=== PATIENT | male | born 1960 | race Caucasian/White ===

== ENCOUNTER → 2016-11-04 | Outpatient (CLI) | payer OTHER ==
[~2016-11-04] MED LIST: ALBU1AER9 INH; ASPCH81X PO; ASPI81TA28 PO; CABE0.5T PO; CLIN1GEL5 TOP; HYDR12.56 PO; IBUP-1050 PO; PANT40TA PO; PRED20TA2 PO; VNTHFA/IN INH
[2016-11-04 12:08] LABS: DAYS OF ABSTINENCE 5; METHOD OF COLLECTION MASTURBATION; SEMEN TIME OF COLLECTION 855; TYPE OF SPECIMEN CONTAINER STERILE CUP
[2016-11-04 12:09] LABS: SEMEN COLOR YELLOW-GRAY (GRY/GRYWHTE)
[2016-11-04 12:10] LABS: SPERM VIABILITY STAIN NOT INDICATED % (>58%)
== END | disposition home or self-care (01) ==
LOC: C.LAB 09:14
PROVIDERS: ATTEND Obstetrics & Gynecology
DX: N46.9 Male infertility, unspecified (principal)

== ENCOUNTER 2016-12-13 15:50 | Emergency (ER) | payer OTHER ==
[~2016-12-13] VITALS: Ht 167.6 cm; Wt 80.3 kg
[~2016-12-13 15:50] MED LIST changes: -ASPI81TA28 PO; -CLIN1GEL5 TOP; -HYDR12.56 PO
[2016-12-13 16:02] VITALS: TEMP 36.7; Ht 167.6 cm; Wt 80.3 kg
[2016-12-13] MEDS ORDERED: PRED20TA2 PO (17:15)
[2016-12-13] MEDS ORDERED: CLIN1GEL5 TOP (17:20)
[2016-12-13] MEDS ORDERED: ASPI81TA28 PO (17:20)
[2016-12-13 17:44] VITALS: BP 128/84; PULSE 77; O2SAT 99
[2016-12-13] MEDS ORDERED: HYDR12.56 PO (17:46)
--- NOTE | 2016-12-16 14:31 | EMERGENCY ROOM VISIT NOTE ---
ED Visit Note First contact with patient: 17:02 Chief Complaint: Burning and itchy rash. History of Present Illness: Mr. Pleitez is a 56-year-old male who ambulates into the ED accompanied by family members complaining of a burning and itchy rash in the bilateral inguinal area. Patient reports he used [place] extra strength talcum powder in his inguinal area for the last week. 2 days ago he started noting burning and the development of a erythematous rash in the bilateral inguinal area. Since that time his burning has been constant. He has not identified any aggravating or alleviating factors related to the pain. He reports he has been using an over- the-counter cream on this area without relief of his discomfort. Additionally he notes that the rash is itchy. He denies any associated symptoms including fevers, chills, sweats, other skin eruptions, other skin color changes, abdominal pain, nausea, vomiting, increased urinary frequency, burning urination , hematuria. Review of Systems: As noted above in history of present illness. 8 body systems were reviewed and found to be negative as noted above. Past Medical History: Hypertension. Current Medications: Aleve, hydrochlorothiazide, aspirin, clindamycin phosphate gel, cabergoline. Allergies to Medications: Codeine, sumatriptan. Social History: Patient is currently employed; he lives with his and feels safe in his home environment; he denies tobacco and alcohol use. Physical Examination: Vital Signs: Date Time Temp Pulse Resp B/P (MAP) Pulse Ox O2 Delivery O2 Flow Rate FiO2 12/13/16 17:44 77 18 128/84 99 12/13/16 16:02 36.7 86 18 132/90 99 Room Air GENERAL: 56-year-old male in mild distress due to symptoms, nontoxic-appearing, afebrile and hemodynamically stable. NEUROLOGICAL: Awake, alert and oriented to person, place and time. Answering questions appropriately and following commands. SKIN: Warm, dry and pink. Genitals: Shows an mild erythematous rash without edema over the bilateral inguinal ligament area and over the lateral aspect of the scrotum. There is no drainage from the wound. There are no palpable masses or abscesses. There is no lymphangitis. THORAX: Lungs sounds are clear to auscultation and equal bilaterally with symmetrical chest wall. ABDOMEN: Flat, soft and nontender. Positive bowel sounds in all quadrants. No guarding, rigidity or organomegaly. GENITALS: Normal appearing, mature genitals. Rashes noted above. No other lesions or ulcerations were noted. No drainage from the meatus. No testicular tenderness. No local lymphadenopathy. ED Course: Patient is assessed as noted above. Patient's medications were reviewed. Patient was educated about today's findings and instructed on his treatment plan ; he verbalizes understanding and agreement with this plan. Clinical Impression: Rash had application site. Disposition: Patient discharged home in stable condition accompanied by family member; prior to departure he was reassessed and subjectively reported he was feeling the same. Plan: Patient was encouraged to discontinue use of the [place]. Patient was encouraged to keep the area clean with soap and water. Patient was encouraged to use Benadryl cream over the area. Patient was encouraged use cool compresses over the area for burning throat 5 times a day for 20-30 minutes. Patient was prescribed prednisone 40 mg once a day for the next 5 days. Patient was encouraged to follow-up with primary care provider for recheck if no better in 5-6 days. Patient was encouraged return to the ED for worsening rash, worsening burning, fevers, swelling or any new/concerning symptoms.
== END 2016-12-13 17:46 | disposition home or self-care (01) ==
LOC: C.EDB 15:51 → C.EDD 17:46
DX: R21 Rash and other nonspecific skin eruption (principal); I10 Essential (primary) hypertension; Z79.82 Long term (current) use of aspirin; Z79.899 Other long term (current) drug therapy

== ENCOUNTER → 2017-04-21 | Outpatient (CLI) | payer OTHER ==
[~2017-04-21] MED LIST changes: -ALBU1AER9 INH; -ASPCH81X PO; +ASPI81TA28 PO; +CLIN1GEL5 TOP; +HYDR12.56 PO; -PANT40TA PO; -PRED20TA2 PO; -VNTHFA/IN INH
--- NOTE | 2017-04-21 11:59 | DIAGNOSTIC IMAGING REPORT ---
R LOWER EXT JOINT WITHOUT CLINICAL HISTORY: 57 years-old Male with M72.2,M79.671. acute right ankle pain without known injury. History of plantar fasciitis COMPARISON: None. TECHNIQUE: Multiplanar, multi sequence MRI of the right ankle was performed without contrast. FINDINGS: The exam is mildly limited secondary to motion artifact LATERAL LIGAMENT COMPLEX: The anterior talofibular ligament, calcaneofibular ligament and posterior talofibular ligaments are intact. SYNDESMOTIC LIGAMENTS: The anterior-inferior tibiofibular ligament, interosseous membrane and posterior-inferior tibiofibular ligaments are intact. DELTOID LIGAMENT COMPLEX: The deep component of the deltoid ligament is intact. Linear increased T2 signal is noted within the intrasubstance superficial deltoid ligament as seen on images 18 and 19 of series 7 suggesting grade 2 sprain. ANTERIOR TENDONS: The tibialis anterior, extensor hallucis longus and extensor digitorum longus tendons are normal in position, morphology and signal. LATERAL TENDONS: The peroneus longus and brevis tendons are intact. MEDIAL TENDONS: The posterior tibialis, flexor digitorum longus and flexor hallucis longus tendons are intact. PLANTAR FASCIA: There is moderate thickening of the medial and lateral plantar fascial bundles. Moderate associated surrounding edema consistent with acute plantar fasciitis. No definite plantar fascial tear or plantar fascial nodules. Moderate associated plantar calcaneal enthesophyte. ACHILLES TENDON: The Achilles tendon is normal in position, morphology and signal. No associated bursitis. SINUS TARSI: There is normal fat signal within the sinus tarsi. The interosseous and cervical ligaments are normal. The navicular-calcaneal (spring) ligament iswithout acute abnormality. TARSAL TUNNEL: There are no obstructing lesions within the tarsal tunnel. BONE MARROW: Osteochondral defect of the medial talar dome measures 11 x 11 mm in AP and transverse dimension with moderate associated subcortical cystic changes. No unstable fragment or definite intra-articular loose body. There is a chondroid lesion of the mid talar body, 1.5 x 1.1 cm with rings and arcs morphology suggesting enchondroma. No fracture identified. Mild bone marrow edema of the calcaneus adjacent to the plantar fascia insertion site. Mild degenerative change of the midfoot with marginal spurring and chondral thinning. IMPRESSION: 1. Moderate acute on chronic plantar fasciitis with mild reactive bone marrow edema of the plantar insertion site about the calcaneus. Moderate sized plantar calcaneal enthesophyte. No evidence of plantar fascial tear. 2. 1.5 cm lesion of the mid talar body suggests an endochondroma. 3. 1.1 cm osteochondral defect of the medial talar dome. 4. Grade 2 sprain of the superficial medial collateral ligament is likely subacute. The above report was generated using voice recognition software. It may contain grammatical, syntax or spelling errors. Electronically signed by: Deangelo Henderson M.D. 04/21/2017 11:58 AM Dictated Date/Time: 04/21/2017 10:47 AM
== END | disposition home or self-care (01) ==
LOC: C.MRI 09:30
PROVIDERS: ATTEND Podiatrist Foot & Ankle Surgery
DX: M72.2 Plantar fascial fibromatosis (principal); M84.871 Other disorders of continuity of bone, right ankle and foot; S83.411A Sprain of medial collateral ligament of right knee, initial encounter; X58.XXXA Exposure to other specified factors, initial encounter

== ENCOUNTER → 2017-07-30 | Outpatient (CLI) | payer OTHER | END | disposition home or self-care (01) | LOC: C.LAB1850 11:15 | PROVIDERS: ATTEND Internal Medicine Endocrinology, Diabetes & Metabolism | DX: D35.2 Benign neoplasm of pituitary gland (principal) ==

== ENCOUNTER 2017-11-04 20:36 | Emergency (ER) | payer OTHER ==
[~2017-11-04] VITALS: Ht 167.6 cm; Wt 81.4 kg
[~2017-11-04 20:36] MED LIST changes: -CLIN1GEL5 TOP; -IBUP-1050 PO; +VITAMIN B PO; +VNTHFA/IN INH; +[UNRECOGNIZED DRUG - OTHER] PO
[2017-11-04 20:39] VITALS: TEMP 36.7; Ht 167.6 cm; Wt 81.4 kg
[2017-11-04] MEDS ORDERED: MoRPHine SULFATE 10 MG/ML CARP/VIAL IM STA (20:54)
--- NOTE | 2017-11-04 22:46 | DIAGNOSTIC IMAGING REPORT ---
CT OF THE RIGHT KNEE WITHOUT CONTRAST CLINICAL HISTORY: Right knee pain following fall. COMPARISON STUDY: No previous studies for comparison. FINDINGS: There is a moderate size right knee joint effusion without lipohemarthrosis. No acute fracture is present. Patellar tracking is normal. Joint spaces are preserved. No osseous lesion is identified. The ligaments of the right knee are suboptimally assessed by CT. IMPRESSION: 1. No acute fracture. 2. Moderate size right knee joint effusion without lipohemarthrosis. Electronically signed by: Chandra House M.D. 11/04/2017 10:45 PM Dictated Date/Time: 11/04/2017 10:39 PM
[2017-11-04 22:49] VITALS: BP 116/84; PULSE 76; O2SAT 93
--- NOTE | 2017-11-04 22:51 | EMERGENCY ROOM VISIT NOTE ---
History First contact with patient: 20:46 Chief Complaint: LEG PAIN,LEG INJURY Stated Complaint: RT LEG INJURED History of Present Illness The patient is a 57 year old male who presents to the Emergency Room with complaints of "right leg injury". The patient states that he injured his right knee 2 days ago while at work. He states that he went to [facility] and was sent to Dr. Rabia gimenez who saw him earlier today and would like to do an MRI but he notes because of the time was unable to do it then. The patient presents here today because the pain is worse. He rates the pain is an 11/10. He notes he was prescribed nothing for the pain. He has tried ibuprofen with little relief. He states that the injury occurred while he was mowing/operating a string nick and his knee twisted causing him to fall to the ground. He points to the right anterior knee joint as location of pain. Review of Systems A complete 10-point Review of Systems was discussed with the patient, with pertinent positives and negatives listed in the History of Present Illness. All remaining Review of Systems questions can be considered negative unless otherwise specified. 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 Surgical Problems: (1) Elbow Joint Replacement Status Family History Noncontributory Social History Smoking Status: Never Smoker Alcohol Use: none Marital Status: Current/Historical Medications Scheduled Aspirin (Aspirin Ec), 81 MG PO DAILY Cabergoline (Cabergoline), 0.5 MG PO [id number] Hydrochlorothiazide (Hctz), 12.5 MG PO QAM [Vitamin B2 W/Mag.], 1 TAB PO DAILY Scheduled PRN Albuterol Hfa (Ventolin Hfa), 2-4 PUFFS INH Q6H PRN for Shortness of Breath Oxycodone Ir (Roxicodone Ir), 1-2 TAB PO Q4H PRN for Pain Physical Exam Vital Signs Date Time Temp Pulse Resp B/P (MAP) Pulse Ox O2 Delivery O2 Flow Rate FiO2 11/04/17 22:49 76 18 116/84 93 Room Air 11/04/17 20:39 36.7 86 18 98 Room Air Physical Exam VITAL SIGNS - Vital signs and nursing notes were reviewed. Stable. GENERAL -57-year-old male appearing his stated age who is in no acute distress. Communicates well with provider and answers questions appropriately. SKIN - Without rashes. No meningeal or petechial rash. There is no erythema overlying the right knee. There is edema though of the soft tissue. EXTREMITIES - No clubbing or peripheral cyanosis. No pretibial edema present. Range of motion very limited of the right knee secondary to tenderness. No ligamentous laxity. Negative Lockman. He is neurovascularly intact in the right lower extremity. Especially tender over the right anterior knee joint Medical Decision & Procedures ER Provider Diagnostic Interpretation: CT OF THE RIGHT KNEE WITHOUT CONTRAST CLINICAL HISTORY: Right knee pain following fall. COMPARISON STUDY: No previous studies for comparison. FINDINGS: There is a moderate size right knee joint effusion without lipohemarthrosis. No acute fracture is present. Patellar tracking is normal. Joint spaces are preserved. No osseous lesion is identified. The ligaments of the right knee are suboptimally assessed by CT. IMPRESSION: 1. No acute fracture. 2. Moderate size right knee joint effusion without lipohemarthrosis. Electronically signed by: Chandra House M.D. 11/04/2017 10:45 PM Dictated Date/Time: 11/04/2017 10:39 PM Medications Administered Medications (Trade) Dose Ordered Sig/Esthela Route Start Time Stop Time Status Last Admin Dose Admin Morphine Sulfate (MoRPHine SULFATE INJ) 10 mg NOW STAT IM 11/04/17 20:54 11/04/17 20:55 DC 11/04/17 20:54 10 MG Oxycodone HCl (Roxicodone Immediate Rel 5MG Home Pack) 1 homepack UD STAT PO 11/04/17 23:07 11/04/17 23:08 DC 11/04/17 23:07 1 HOMEPACK Medical Decision Patient was seen and evaluated as above. Review was performed of nursing notes and vital signs. After obtaining a thorough history and physical examination the above work up was performed. He presents to us today with right knee pain. He had x-rays performed yesterday which he notes were negative. He saw an orthopedic surgeon today who will likely order an MRI. On my exam he is in tears, and is complaining of right knee pain. I did elect to obtain a CT scan to rule out tibial plateau fracture or occult fracture. Results as above. This is negative Other than joint effusion. I suspect ligamentous or meniscal injury. He is to follow with orthopedics. While here he was given an injection of morphine. He had minimal relief of his pain. He will be sent home with a short course of oxycodone and a prescription. No red flags in the [place] drug monitoring system. He was fitted with a new knee immobilizer here and notes it feels much better, and is better padded. The patient was educated upon management, had questions answered prior to discharge, and was discharged home in good condition. Case was discussed with the attending physician. I attest that I have personally reviewed the patient medication list. I attest that I have reviewed the patient's blood pressure and it was found to be normal. In the evaluation and treatment of this patient, the following differential diagnoses were considered: Patellar Fracture, Tibial Plateau Fracture, Distal Femur Fracture, ACL Injury, PCL Injury, Collateral Ligament Injury, Pes Anserine Bursitis, Maisonneuve Fracture. Impression Primary Impression: Knee pain, right Departure Information Dispostion Home / Self-Care Condition GOOD Prescriptions Oxycodone Ir (Roxicodone Ir) 5 Mg Tab 1-2 TAB PO Q4H Y for Pain, #18 TAB For Initial Treatment Prov: Jass Wesley PA-C 11/04/17 Referrals Ashwini Walsh M.D. (PCP) Feroz Brown M.D. Patient Instructions My [facility] Additional Instructions You have been treated in the Emergency Department for Knee Pain. You have received pain medicine in the emergency department which impairs your ability to operate a vehicle. It is illegal for you to drive after receiving these medicines. You have been prescribed OXY IR to be used for pain control. This is a narcotic medication. You cannot drive or consume alcohol while on this medicine. This medicine should only be used for pain that cannot be controlled with over-the- counter pain medicines. For pain control, you can use the following [id number] medicines (if >12 yo): - Regular strength (325mg/tab) Tylenol (acetaminophen) 2 tabs every 4-6 hours as needed. Do not exceed 12 tablets in a 24 hour period. Avoid taking more than 3 grams (3000 mg) of Tylenol per day. This includes any other sources of acetaminophen you may take on a regular basis. - Regular strength (200 mg/tab) Advil (ibuprofen) 1-2 tabs every 4-6 hours as needed. Do not exceed a dose of 3200 mg per day. Please do not take this with Aleve, naproxen, aspirin. You may use acto-nak-znemrva lidocaine cream as directed. If this is a recent injury (<24 hrs), ice can be applied to the area of pain for the first 3 days to help decrease pain and inflammation. Ice massages can be performed by freezing water in a paper cup, peeling back the cup to expose the ice and then massaging over the affected area. You have been provided the number for an Orthopaedic Surgeon. You should call this number as soon as possible to establish a follow-up visit from today's Emergency Department visit. Keep the knee brace in place until cleared by Orthopedics. Use the crutches you have been provided to keep ALL weight off of the knee until weight bearing is tolerable. Return to the Emergency Department if your current symptoms worsen despite treatment course outlined above.
[2017-11-04] MEDS ORDERED: VITAMIN B PO (22:56)
[2017-11-04] MEDS ORDERED: MAG PO (22:56)
[2017-11-04] MEDS ORDERED: OXYCODONE IR HOME PACK PO STA (23:07)
[2017-11-04] MEDS ORDERED: OXYC1TAB3 PO (23:08)
--- NOTE | 2017-11-04 23:18 | EMERGENCY ROOM VISIT NOTE ---
ED Visit Note First contact with patient: 20:46 I have personally evaluated this patient examined her and reviewed the pertinent labs and data. I have discussed the case with Jass Wesley, the physician housekeeping assistant and agree with the plan. Please refer to the PA note. This patient injured his knee yesterday he has significant right knee pain on exam is not red or warm or markedly swollen there is no instability is neurologically neurovascular intact. We did a CAT scan he does have a joint effusion but no fracture seen. He was seen by orthopedics today and is can use immobilizer and crutches and will give him pain medication .he may ultimately MRI of the symptoms persist as well and needs follow-up with his orthopedist
== END 2017-11-04 23:18 | disposition home or self-care (01) ==
LOC: C.EDB 20:36 → C.EDD 23:18
DX: M25.561 Pain in right knee (principal); I10 Essential (primary) hypertension; Z79.82 Long term (current) use of aspirin

== ENCOUNTER 2018-01-19 19:33 | Emergency (ER) | payer OTHER ==
[~2018-01-19] VITALS: Ht 167.6 cm; Wt 79.0 kg
[~2018-01-19 19:33] MED LIST changes: +OXYC-90 PO; -VITAMIN B PO; -[UNRECOGNIZED DRUG - OTHER] PO
[2018-01-19 19:34] VITALS: BP 157/104; PULSE 88; TEMP 36.3; O2SAT 99; Ht 167.6 cm; Wt 79.0 kg
[2018-01-19] MEDS ORDERED: POTA10CA28 PO (19:53)
[2018-01-19] MEDS ORDERED: RIBO100T9 PO (19:53)
--- NOTE | 2018-01-19 20:48 | DIAGNOSTIC IMAGING REPORT ---
LEFT ELBOW 4 VIEWS CLINICAL HISTORY: Left elbow pain. FINDINGS: 4 views of the left elbow are compared to study dated 01/07/2007. The skeletal structures are osteopenic. No acute fracture is identified. A left elbow arthroplasty is in place with long humeral and ulnar stems. Cerclage wires are present around the ulnar component. The radial head is surgically absent. Resorptive change is again seen involving the distal humerus and proximal ulna. Chronic posttraumatic deformity is noted in the left proximal humerus. Bony overgrowth is present around the elbow. There is no evidence of large joint effusion. The overlying soft tissues are normal as imaged. IMPRESSION: 1. No acute bony abnormality is identified in the left elbow. 2. Osteopenia with postoperative change, elbow joint arthroplasty, and chronic deformity as above. These findings are similar to the 2006 examination. Dictated: 01/19/2018 8:32 PM Transcribed: 01/19/2018 8:47 PM ROSARIO_Luis Antonio Electronically signed by: Migel Layton M.D. 01/19/2018 9:00 PM Dictated Date/Time: 01/19/2018 8:32 PM
[2018-01-19] MEDS ORDERED: OXYCODONE IR HOME PACK PO ONE (21:15)
--- NOTE | 2018-01-19 21:47 | EMERGENCY ROOM VISIT NOTE ---
History First contact with patient: 19:40 Chief Complaint: PAIN (GENERALIZED) Stated Complaint: PAIN History of Present Illness The patient is a 58 year old male who presents to the Emergency Room with complaints of pain in his left elbow. The patient states he has had a previous elbow replacement and has had 2 surgeries, in 2001 and 1978. His orthopedic surgeon is in [facility]. He states that no orthopedist will see him locally. In the past few weeks. He rates his current discomfort a 6/10. His pain worsens with any movement of the elbow. He denies any fevers, redness, warmth, numbness or weakness. Review of Systems A complete 6 point review of systems was reviewed with the patient with pertinent positives and negatives as per history of present illness. All else were negative. 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 Surgical Problems: (1) Elbow Joint Replacement Status Social History Smoking Status: Never Smoker Alcohol Use: none Marital Status: Current/Historical Medications Scheduled Aspirin (Aspirin Ec), 81 MG PO DAILY Cabergoline (Cabergoline), 0.5 MG PO [id number] Hydrochlorothiazide (Hctz), 12.5 MG PO QAM Potassium Chloride (Micro-K Ext Rel), 1 TAB PO DAILY Riboflavin (Vitamin B-2), 400 MG PO DAILY [Vitamin B2 W/Mag.], 1 TAB PO DAILY Scheduled PRN Albuterol Hfa (Ventolin Hfa), 2-4 PUFFS INH Q6H PRN for Shortness of Breath Oxycodone Ir (Roxicodone Ir), 1-2 TAB PO Q4H PRN for Pain Physical Exam Vital Signs Date Time Temp Pulse Resp B/P (MAP) Pulse Ox O2 Delivery O2 Flow Rate FiO2 01/19/18 19:34 36.3 88 20 157/104 99 Room Air Physical Exam VITALS: Vitals are noted on the nurse's note and reviewed by myself. Vital signs stable. GENERAL: This is a 58-year-old male, in no acute distress, well-developed well- nourished. SKIN: No redness or warmth. MUSCULOSKELETAL: There is extensive scarring over the left elbow. Diffuse tenderness to palpation. Full range of motion. Radial pulse 2+. Capillary refill within 2 seconds. NEURO: Patient was alert and oriented to person place and time. Distal sensation intact. Medical Decision & Procedures ER Provider Diagnostic Interpretation: LEFT ELBOW 4 VIEWS CLINICAL HISTORY: Left elbow pain. FINDINGS: 4 views of the left elbow are compared to study dated 01/07/2007. The skeletal structures are osteopenic. No acute fracture is identified. A left elbow arthroplasty is in place with long humeral and ulnar stems. Cerclage wires are present around the ulnar component. The radial head is surgically absent. Resorptive change is again seen involving the distal humerus and proximal ulna. Chronic posttraumatic deformity is noted in the left proximal humerus. Bony overgrowth is present around the elbow. There is no evidence of large joint effusion. The overlying soft tissues are normal as imaged. IMPRESSION: 1. No acute bony abnormality is identified in the left elbow. 2. Osteopenia with postoperative change, elbow joint arthroplasty, and chronic deformity as above. These findings are similar to the 2006 examination. Medical Decision Differential diagnosis includes osteoarthritis, rheumatoid disorder, septic arthritis, among others. The patient was evaluated as above. There is no evidence for infection on exam. X-ray was performed and read by radiology as above. Patient was given a short course of pain medication and was urged to follow-up with his orthopedist as soon as possible. He verbalized understanding of my assessment and treatment plan and was discharged home in good condition. [place] Drug Monitoring Program Search Results: patient reviewed within database, no issues identified Medication Reconcilliation Current Medication List: was personally reviewed by mt Blood Pressure Screening Patient's blood pressure: Elevated blood pressure Blood pressure disposition: Elevated BP felt to be situational Impression Primary Impression: Elbow pain, left Departure Information Dispostion Home / Self-Care Condition GOOD Prescriptions Oxycodone Ir (Roxicodone Ir) 5 Mg Tab 1-2 TAB PO Q4H Y for Pain, #18 TAB For Initial Treatment Prov: Samantha Price .MINO 01/19/18 Referrals Ashwini Walsh M.D. (PCP) Patient Instructions My [facility] Additional Instructions You have been treated in the Emergency Department for Elbow Pain. You have received pain medicine in the emergency department which impairs your ability to operate a vehicle. It is illegal for you to drive after receiving these medicines. You have been prescribed Oxy IR to be used for pain control. This is a narcotic medication. You cannot drive or consume alcohol while on this medicine. This medicine should only be used for pain that cannot be controlled with over-the- counter pain medicines. For pain control, you can use the following [id number] medicines (if >12 yo): - Regular strength (325mg/tab) Tylenol (acetaminophen) 2 tabs every 4-6 hours as needed. Do not exceed 12 tablets in a 24 hour period. Avoid taking more than 4 grams (4000 mg) of Tylenol per day. This includes any other sources of acetaminophen you may take on a regular basis. - Regular strength (200 mg/tab) Advil (ibuprofen) 1-2 tabs every 4-6 hours as needed. Do not exceed a dose of 3200 mg per day. You may want to take a daily anti-inflammatory such as naproxen sodium. If this is a recent injury (<24 hrs), ice can be applied to the area of pain for the first 3 days to help decrease pain and inflammation. Follow-up with your surgeon as scheduled or sooner if possible. Return to the Emergency Department if your current symptoms worsen despite treatment course outlined above, or if you develop any of the following symptoms : intractable pain despite aforementioned treatment course or new onset of numbness or tingling of the arm.
[2018-01-19] MEDS ORDERED: OXYC-90 PO (21:49)
[2018-01-19] MEDS ORDERED: MAG PO (22:56)
[2018-01-19] MEDS ORDERED: VITAMIN B PO (22:56)
== END 2018-01-19 21:50 | disposition home or self-care (01) ==
LOC: C.EDB 19:34 → C.EDD 21:50
DX: M25.522 Pain in left elbow (principal); K21.9 Gastro-esophageal reflux disease without esophagitis; I10 Essential (primary) hypertension; Z96.698 Presence of other orthopedic joint implants; Z79.82 Long term (current) use of aspirin; Z79.899 Other long term (current) drug therapy

== ENCOUNTER 2021-05-20 08:01 | Inpatient (IN) ==
[2021-05-20] MEDS ORDERED: SODIUM CHLORIDE 0.9% 500 ML IV STA (08:26)
[2021-05-20] MEDS ORDERED: ACETAMINOPHEN 1,000 MG/100 ML VIAL IV STA (08:26)
[2021-05-20] MEDS ORDERED: ONDANSETRON INJ 2 MG/ML 2 ML VIAL IV STA (08:26)
[2021-05-20 08:39] LABS: Basophils # (auto) 0.03 K/uL (0-0.2); Basophils % (auto) 0.4 %; Eosinophils # (auto) 0.02 K/uL (0-0.5); Eosinophils % (auto) 0.3 %; Hematocrit (blood only) 44.4 % (42-52); Immature Granulocytes # (auto) 0.03 K/uL (0.00-0.02); Immature Granulocytes % (auto) 0.4 %; Lymphocytes # (auto) 0.75 K/uL (1.2-3.4); Lymphocytes % (auto) 10.6 %; Mean Corpuscular Hemoglobin 28.7 pg (25-34); Mean Corpuscular Hgb Conc 33.8 g/dL (32-36); Mean Corpuscular Volume 85.1 fL (80-100); Mean Platelet Volume 10.6 fL (7.4-10.4); Monocytes # (auto) 0.49 K/uL (0.11-0.59); Monocytes % (auto) 6.9 %; Neutrophils # (auto) 5.77 K/uL (1.4-6.5); Neutrophils % (auto) 81.4 %; Platelet Count 326 K/uL (130-400); RDW Coefficient of Variation 13.3 % (11.5-14.5); RDW Standard Deviation 41.4 fL (36.4-46.3); Red Blood Count 5.22 M/uL (4.7-6.1); White Blood Count 7.09 K/uL (4.8-10.8)
--- NOTE | 2021-05-20 08:45 | XRay Report ---
XR chest 1V portable CLINICAL HISTORY: Dyspnea, COVID, hypoxia COMPARISON STUDY: Chest radiograph May 16, 2021. FINDINGS: Lung volumes are normal. There is no pneumothorax or pleural effusion. There has been progr ession of extensive bilateral airspace opacities since prior chest radiograph. Cardiomegaly is again noted. There is no evidence for pulmonary edema. IMPRESSION: Progression of extensive bilateral airspace opacities consistent with viral pneumonia. R adiographic follow-up to ensure resolution is recommended. ACT 112: Negative or not required by law. Electronically signed by: Chandra House M.D. 05/20/2021 8:44 AM
[2021-05-20 08:58] LABS: Partial Thromboplastin Ratio 0.9; Partial Thromboplastin Time 24.5 Seconds (21.0-31.0); Prothrombin Time 9.8 Seconds (9.0-12.0)
[2021-05-20 09:13] LABS: D Dimer 10200 ug/L FEU (0-500)
[2021-05-20 09:24] LABS: Alanine Aminotransferase 75 (12-78); Albumin Globulin Ratio 0.4 (0.9-2); Albumin Level 2.4 gm/dl (3.4-5.0); Alkaline Phosphatase 76 U/L (45-117); Aspartate Aminotransferase 80 U/L (15-37); BUN Creatinine Ratio 12.9 (10-20); Bilirubin,Total 0.5 mg/dl (0.2-1); Blood Urea Nitrogen 12 mg/dl (7-18); Calcium 8.5 mg/dl (8.5-10.1); Carbon Dioxide 26 mmol/L (21-32); Chloride 102 mmol/L (98-107); Est GFR (African American) 97.1 ml/min; Est GFR (Non-African American) 83.8 ml/min; Globulin 5.4 gm/dl (2.5-4.0); Glucose 103 mg/dl (70-99); Magnesium 2.1 mg/dl (1.8-2.4); Potassium 3.7 mmol/L (3.5-5.1); Sodium 137 mmol/L (136-145); Total Protein 7.8 gm/dl (6.4-8.2); Troponin I < 0.015 ng/ml (0-0.045)
[2021-05-20] MEDS ORDERED: dexAMETHasone**PF** 10 MG/ML VIAL IV ONE (09:27)
[2021-05-20] MEDS ORDERED: METOCLOPRAMIDE HCL INJ 5 MG/ML 2 ML VIAL IV STA (09:36)
[2021-05-20] MEDS ORDERED: diphenhydrAMINE 50 MG/ML VIAL IV STA (09:38)
--- NOTE | 2021-05-20 09:48 | Emergency Department Note ---
Impression & Plan Pneumonia due to COVID-19 virus, Hypoxia, Nausea & vomiting ED Provider Note Provider: Aaron Montana MD DATE OF SERVICE: 05/17/2021 CHIEF COMPLAINT: Shortness of breath, nausea HISTORY OF PRESENT ILLNESS: Patient is a 61-year-old gentleman history of hyperlipidemia, kidney stones, and Covid diagnosed with symptoms starting about a week ago presenting via ambulance today due to nausea fatigue and shortness of breath. Patient found to be in the 70s on room air. Patient is not vaccinated for Covid. Endorse diffuse myalgias and headache. Reports a dry cough and some congestion. Denies significant abdominal pain but reports again nausea and decreased intake. Patient states he is not take any Tylenol today but did so yesterday. Patient states he feels anxious and very short of breath. REVIEW OF SYSTEMS: A total of 10 review of systems was obtained and negative except as stated above in the HPI. PAST MEDICAL HISTORY: As noted above MEDICATIONS: Reviewed home medications SOCIAL HISTORY: Lives at home with , non-smoker PHYSICAL EXAM: GENERAL: alert and oriented on stretcher, anxious in appearance and tachypneic Head: normocephalic and atraumatic EYES: No injection, discharge or icterus. NECK: Trachea midline. Supple. ENT: Mucous membranes pink with some dry lips noted. LUNGS: Airway patent. Mild retractions and some tachypnea noted. Breath sounds clear HEART: Regular rate and rhythm. No chest wall tenderness ABDOMEN: Soft and non-tender, without guarding or rebound. SKIN: Acyanotic, warm, dry, without rashes EXTREMITIES: Without swelling, tenderness or deformity NEUROLOGICAL: No focal deficits. No aphasia. No facial droop or slurred speech. EKG: A 98 bpm sinus rhythm without PVC. Some baseline artifact. No acute ST segment elevation or depression. QTC 444. CONTINUOUS CARDIAC MONITORING: was ordered and showed a heart rate of 80s to 100s bpm in normal sinus rhythm to sinus tachycardia Patient's laboratory studies and imaging reviewed. Differential includes Infection, dehydration, metabolic abnormality, hypo/hyperglycemia, electrolyte disturbance, anemia, hypoxia, cardiac sources, intracerebral event, toxicologic, neurologic, as well as other pathologies. IMPRESSION/MEDICAL DECISION MAKING: Patient about a week into Covid unvaccinated hypoxia now. D-dimer significant elevated CT to exclude PE be completed. Mild transaminitis consistent with Covid. Patient without leukocytosis or anemia here. Patient without severe electrolyte abnormality or concerning findings for biliary obstruction. CRP significantly elevated likely related to inflammatory state from severe case of Covid. Troponin is undetectable and EKG without findings for STEMI. Doubt ACS. Chest x-ray with some diffuse inflammatory changes consistent with Covid. Again CT of the chest to exclude PE given significantly elevated D-dimer and this was negative per radiology for PE. On oxygen mask 5 L given his hypoxia and tachycardia Given some Zofran, Reglan and Benadryl to help with nausea symptoms in addition IV steroids given his hypoxia with Covid. Patient agrees to plan to stay here for further care and the hospitalist team was contacted. DIAGNOSIS: COVID-19 pneumonia, hypoxia, nausea DISPOSITION: Hospitalist will evaluate Patient was agreeable with this plan. Critical Care I have personally spent 32 minutes of critical care time in the direct management of this patient. This includes bedside care, interpretation of diagnostic studies, and testing, discussion with consultants, patient, and other required patient management activities. These 32 minutes is in excess of all separately billable procedures. Past Med/Surg History Medical History (Updated 05/20/21 @ 09:56 by Aaron Montana M.D.) Hyperlipidemia Kidney stones Migraine Wheezing intermittent--inhaler/nebulizer prn Surgical History History of colonoscopy History of cystoscopy History of open reduction and internal fixation (ORIF) procedure left shoulder/elbow---hardware in place History of repair of right rotator cuff History of wisdom tooth extraction Hx of left inguinal hernia repair Family History Father Family hx of colon cancer Other No family history of adverse response to anesthesia Social History Smoking Status: Never smoker Second Hand Exposure: No; Hx Alcohol Use: No Hx Substance Use: No Preferred Language: Irish Communication Ability: Effective Wet Pour Mixer Required: No Beliefs That Will Affect Care: None marital status: Current Living Situation: Spouse and Family Current Living Situation Comment: LIVES WITH AND SON Other Information That Helps Us Care for You: No Feels Safe at Home: Yes Safety Concerns: Feels Safe At This Time Assistive Devices: None Allergies Allergies Allergy/AdvReac Type Severity Reaction Status Date / Time sumatriptan Allergy Mild RASH Verified 05/16/21 18:08 codeine AdvReac Mild SICK IN Verified 05/16/21 18:08 STOMACH Home Meds Home Medications Medication Instructions Recorded Confirmed atorvastatin 10 mg tablet 10 mg PO DAILY 07/25/20 05/20/21 albuterol sulfate 90 mcg/actuation 2 puff INHALATION QID PRN 05/16/21 05/20/21 aerosol inhaler amoxicillin 875 mg-potassium 1 tab PO BID 05/16/21 05/20/21 clavulanate 125 mg tablet cholecalciferol (vitamin D3) 50 2,000 unit PO DAILY 05/16/21 05/20/21 mcg (2,000 unit) capsule (Vitamin D3) dupilumab 300 mg/2 mL subcutaneous 300 mg SUBCUT UD 05/16/21 05/20/21 syringe (Dupixent) fluticasone furoate 200 1 ea INHALATION UD 05/16/21 05/20/21 mcg-vilanterol 25 mcg/dose inhalation powder (Breo Ellipta) losartan 25 mg tablet 25 mg PO DAILY 05/16/21 05/20/21 montelukast 10 mg tablet 10 mg PO DAILY 05/16/21 05/20/21 omeprazole 40 mg capsule,delayed 40 mg PO DAILYBB 05/16/21 05/20/21 release tadalafil 5 mg tablet 5 mg PO DAILY PRN 05/16/21 05/20/21 ondansetron HCl 4 mg tablet 4 mg PO DAILY PRN 05/20/21 05/20/21 Results & Data (ED) Vital Signs Vital Signs - 24 hr 05/20/21 08:13 05/20/21 08:20 05/20/21 08:26 Temperature 38.7 C H Temperature Source Oral Pulse Rate 99 H Pulse Rate [Finger] Pulse Rhythm [Finger] Respiratory Rate 42 H Respiratory Effort / Characteristics Spontaneous Labored Moaning Respiratory Depth Shallow Shallow Respiratory Pattern Tachypnea Tachypnea Blood Pressure 122/87 Blood Pressure [Right Arm] Blood Pressure Mean 98 Blood Pressure Mean [Right Arm] Blood Pressure Position Sitting Pulse Oximetry 94 76 L 94 Oxygen Delivery Method Oxymask Room Air Oxymask Oxygen Flow Rate 5 76 5 Sepsis Recent Fever Within 48 Hours Yes Sepsis New/Unexplained Change in Mental Status No Sepsis Action Taken by Nursing No Action Required Oxygen Flow Rate - Titration 5 Pulse Oximetry Post Tiitration 94 05/20/21 09:19 Temperature Temperature Source Pulse Rate Pulse Rate [Finger] 90 Pulse Rhythm [Finger] Regular Respiratory Rate 42 H Respiratory Effort / Characteristics Labored Respiratory Depth Shallow Respiratory Pattern Tachypnea Blood Pressure Blood Pressure [Right Arm] 122/66 Blood Pressure Mean Blood Pressure Mean [Right Arm] 84 Blood Pressure Position Pulse Oximetry 95 Oxygen Delivery Method Oxymask Oxygen Flow Rate 5 Sepsis Recent Fever Within 48 Hours Sepsis New/Unexplained Change in Mental Status Sepsis Action Taken by Nursing Oxygen Flow Rate - Titration Pulse Oximetry Post Tiitration Laboratory Data Result diagrams: 05/20/21 08:10 05/20/21 08:10 Lab Results 05/20/21 05/20/21 05/20/21 Range/Units 08:10 08:10 08:10 WBC 7.09 (4.8-10.8) K/uL RBC 5.22 (4.7-6.1) M/uL Hgb 15.0 (14.0-18.0) g/dL Hct 44.4 (42-52) % MCV 85.1 (80-100) fL MCH 28.7 (25-34) pg MCHC 33.8 (32-36) g/dL RDW Std Deviation 41.4 (36.4-46.3) fL RDW Coeff of Tino 13.3 (11.5-14.5) % Plt Count 326 (130-400) K/uL MPV 10.6 H (7.4-10.4) fL Immature Gran % (Auto) 0.4 % Neut % (Auto) 81.4 % Lymph % (Auto) 10.6 % Douglas % (Auto) 6.9 % Eos % (Auto) 0.3 % Baso % (Auto) 0.4 % Neut # (Auto) 5.77 (1.4-6.5) K/uL Lymph # (Auto) 0.75 L (1.2-3.4) K/uL Douglas # (Auto) 0.49 (0.11-0.59) K/uL Eos # (Auto) 0.02 (0-0.5) K/uL Baso # (Auto) 0.03 (0-0.2) K/uL Immature Gran # (Auto) 0.03 H (0.00-0.02) K/uL PT 9.8 (9.0-12.0) Seconds INR 1.0 (0.9-1.1) APTT 24.5 (21.0-31.0) Seconds PTT Ratio 0.9 D-Dimer 56484 H* (0-500) ug/L FEU Sodium 137 (136-145) mmol/L Potassium 3.7 (3.5-5.1) mmol/L Chloride 102 (98-107) mmol/L Carbon Dioxide 26 (21-32) mmol/L Anion Gap 9.0 (3-11) BUN 12 (7-18) mg/dl Creatinine 0.96 (0.6-1.4) mg/dl Est Cr Clr Drug Dosing Not Reportable Est GFR ( Amer) 97.1 ml/min Est GFR (Non-Af Amer) 83.8 ml/min BUN/Creatinine Ratio 12.9 (10-20) Glucose 103 H (70-99) mg/dl Lactate (0.4-2.0) mmol/L Calcium 8.5 (8.5-10.1) mg/dl Magnesium 2.1 (1.8-2.4) mg/dl Ferritin (8-388) ng/ml Total Bilirubin 0.5 (0.2-1) mg/dl AST 80 H (15-37) U/L ALT 75 (12-78) Alkaline Phosphatase 76 (45-117) U/L Troponin I < 0.015 (0-0.045) ng/ml C-Reactive Protein 21.70 H (0-0.29) mg/dl Total Protein 7.8 (6.4-8.2) gm/dl Albumin 2.4 L (3.4-5.0) gm/dl Globulin 5.4 H (2.5-4.0) gm/dl Albumin/Globulin Ratio 0.4 L (0.9-2) Procalcitonin (0-0.5) ng/ml Specimen Hemolysis 05/20/21 05/20/21 05/20/21 Range/Units 08:10 08:10 09:04 WBC (4.8-10.8) K/uL RBC (4.7-6.1) M/uL Hgb (14.0-18.0) g/dL Hct (42-52) % MCV (80-100) fL MCH (25-34) pg MCHC (32-36) g/dL RDW Std Deviation (36.4-46.3) fL RDW Coeff of Tino (11.5-14.5) % Plt Count (130-400) K/uL MPV (7.4-10.4) fL Immature Gran % (Auto) % Neut % (Auto) % Lymph % (Auto) % Douglas % (Auto) % Eos % (Auto) % Baso % (Auto) % Neut # (Auto) (1.4-6.5) K/uL Lymph # (Auto) (1.2-3.4) K/uL Douglas # (Auto) (0.11-0.59) K/uL Eos # (Auto) (0-0.5) K/uL Baso # (Auto) (0-0.2) K/uL Immature Gran # (Auto) (0.00-0.02) K/uL PT (9.0-12.0) Seconds INR (0.9-1.1) APTT (21.0-31.0) Seconds PTT Ratio D-Dimer (0-500) ug/L FEU Sodium (136-145) mmol/L Potassium (3.5-5.1) mmol/L Chloride (98-107) mmol/L Carbon Dioxide (21-32) mmol/L Anion Gap (3-11) BUN (7-18) mg/dl Creatinine (0.6-1.4) mg/dl Est Cr Clr Drug Dosing Est GFR ( Amer) ml/min Est GFR (Non-Af Amer) ml/min BUN/Creatinine Ratio (10-20) Glucose (70-99) mg/dl Lactate 1.2 (0.4-2.0) mmol/L Calcium (8.5-10.1) mg/dl Magnesium (1.8-2.4) mg/dl Ferritin 772.6 H (8-388) ng/ml Total Bilirubin (0.2-1) mg/dl AST (15-37) U/L ALT (12-78) Alkaline Phosphatase (45-117) U/L Troponin I (0-0.045) ng/ml C-Reactive Protein (0-0.29) mg/dl Total Protein (6.4-8.2) gm/dl Albumin (3.4-5.0) gm/dl Globulin (2.5-4.0) gm/dl Albumin/Globulin Ratio (0.9-2) Procalcitonin 3.81 H (0-0.5) ng/ml Specimen Hemolysis Administered Medications Acetaminophen (Acetaminophen 325 Mg Tab) 650 mg PO Q6H HÉCTOR Stop: 06/19/21 11:59 Last Admin: 05/20/21 12:00 Dose: Not Given Documented by: [id number] Enoxaparin Sodium (Enoxaparin Inj 40 Mg/0.4 Ml Syr) 40 mg SQ Q24H HÉCTOR Stop: 06/19/21 11:59 Last Admin: 05/20/21 11:59 Dose: 40 mg Documented by: [id number] Ceftriaxone Sodium 1,000 mg/ (Dextrose) 50 mls @ 100 mls/hr IV Q24H HÉCTOR; Protocol Stop: 05/27/21 11:29 Last Admin: 05/20/21 13:34 Dose: 100 mls/hr Documented by: [id number] Polyethylene Glycol (Polyethylene (Miralax) 17 Gm Pack) 17 gm PO DAILY HÉCTOR Stop: 06/19/21 10:59 Last Admin: 05/20/21 11:58 Dose: 17 gm Documented by: [id number] Sodium Chloride (Sodium Chloride 0.9% 10ml Flush) 30 ml IV Q24H HÉCTOR Stop: 05/24/21 11:01 Last Admin: 05/20/21 13:32 Dose: 30 ml Documented by: [id number] Discontinued Medications Dexamethasone Sodium Phosphate (DexamethasonePf 10 Mg/Ml Vial) 6 mg IV NOW ONE Stop: 05/20/21 09:28 Last Admin: 05/20/21 09:31 Dose: 6 mg Documented by: [id number] Diphenhydramine HCl (Diphenhydramine 50 Mg/Ml Vial) 25 mg IV NOW STA Stop: 05/20/21 09:39 Last Admin: 05/20/21 09:59 Dose: 25 mg Documented by: [id number] Sodium Chloride (Nss) 500 mls @ 999 mls/hr IV .Q31M STA Stop: 05/20/21 08:56 Last Infusion: 05/20/21 09:34 Dose: 0 mls/hr Documented by: [id number] Admin: 05/20/21 08:49 Dose: 999 mls/hr Documented by: [id number] Acetaminophen (Ofirmev) 1,000 mg in 100 mls @ 400 mls/hr IV NOW STA Stop: 05/20/21 08:40 Last Infusion: 05/20/21 09:13 Dose: 0 mls/hr Documented by: [id number] Admin: 05/20/21 08:46 Dose: 400 mls/hr Documented by: [id number] Lorazepam (Ativan) 0.5 mg in 1 mls @ 1 mls/min IV NOW STA Stop: 05/20/21 10:27 Last Admin: 05/20/21 10:37 Dose: 1 mls/min Documented by: [id number] Remdesivir 200 mg/ Sodium (Chloride) 250 mls @ 125 mls/hr IV ONE ONE; Protocol Stop: 05/20/21 13:14 Last Admin: 05/20/21 11:20 Dose: 125 mls/hr Documented by: [id number] Ioversol (Optiray 320 125ml) 120 ml IV ONCE ONE Stop: 05/20/21 09:54 Last Admin: 05/20/21 09:54 Dose: 120 ml Documented by: [id number] Metoclopramide HCl (Metoclopramide Hcl Inj 5 Mg/Ml 2 Ml Vial) 10 mg IV NOW STA Stop: 05/20/21 09:37 Last Admin: 05/20/21 09:58 Dose: 10 mg Documented by: [id number] Ondansetron HCl (Ondansetron Inj 2 Mg/Ml 2 Ml Vial) 4 mg IV NOW STA Stop: 05/20/21 08:27 Last Admin: 05/20/21 08:46 Dose: 4 mg Documented by: [id number] Imaging Data Radiologist's Impression: Chest X-Ray 05/20/21 08:26 XR chest 1V portable CLINICAL HISTORY: Dyspnea, COVID, hypoxia COMPARISON STUDY: Chest radiograph May 16, 2021. FINDINGS: Lung volumes are normal. There is no pneumothorax or pleural effusion. There has been progression of extensive bilateral airspace opacities since prior chest radiograph. Cardiomegaly is again noted. There is no evidence for pulmonary edema. IMPRESSION: Progression of extensive bilateral airspace opacities consistent with viral pneumonia. Radiographic follow-up to ensure resolution is recommended. ACT 112: Negative or not required by law. Electronically signed by: Chandra House M.D. 05/20/2021 8:44 AM Chest CTA 05/20/21 09:27 CT angio chest PE protocol CLINICAL HISTORY: Hypoxia. Covid positive. Elevated d-dimer. Evaluate for pulmonary embolus COMPARISON STUDY: 12/18/2019 and portable chest from 05/20/2021 CT DOSE: 436.62 mGy.cm TECHNIQUE: CT Angio of the chest was performed.followed by image post processing with coronal, and sagittal MIP reformats. Contrast Volume: Optiray 320, 120 ml FINDINGS: Vasculature: There is homogeneous perfusion of the pulmonary vasculature bilaterally. No intraluminal filling defects or evidence for pulmonary embolus is seen. Airway: The airway is clear. No endobronchial lesion is identified. Lungs: Extensive groundglass opacities are present throughout both lungs characteristic of a viral type pneumonitis and Covid 19 pneumonia. The lungs are otherwise clear of confluent alveolar opacities, air bronchograms or pulmonary nodules. Pleura: There is no evidence for pleural effusion. There is no evidence for pneumothorax. Mediastinum: There is no evidence for pathologic adenopathy. The heart size is within normal limits. The thoracic aorta is within normal limits. There is no evidence for pericardial effusion. Upper abdomen:The adrenal glands are normal bilaterally. There is a small sliding-type hiatal hernia. Osseous structures: There is no acute osseous pathology. Impression: 1. No CTA evidence for pulmonary embolus. 2. Extensive groundglass opacities are present throughout both lungs characteristic of a viral type pneumonitis and Covid 19 pneumonia. ACT 112: Negative or not required by law. Electronically signed by: Hair Doshi M.D. 05/20/2021 10:01 AM Discharge Plan Visit Data Chief Complaint: Shortness of Breath/Dyspnea Stated Complaint: AB & BACK PAIN, SOB, COVID + ED Provider: Aaron Montana Discharge Problem: Pneumonia due to COVID-19 virus, Hypoxia, Nausea & vomiting Patient Disposition: Admitted As Inpatient Discharge Instructions Interventions: ED Discharge Assessment Last Done: 05/20/21 11:13 Discharge Problem: Nausea & vomiting Qualifiers: Vomiting type: unspecified Qualified Code(s): R11.2 - Nausea with vomiting, uns pecified
[2021-05-20] MEDS ORDERED: OPTIRAY 320 125ml IV ONE (09:53)
--- NOTE | 2021-05-20 10:03 | CT Scan Report ---
CT angio chest PE protocol CLINICAL HISTORY: Hypoxia. Covid positive. Elevated d-dimer. Evaluate for pulmonary embolus COMPARISON STUDY: 12/18/2019 and portable chest from 05/20/2021 CT DOSE: 436.62 mGy.cm TECHNIQUE: CT Angio of the chest was performed.followed by image post processing with coronal, and s agittal MIP reformats. Contrast Volume: Optiray 320, 120 ml FINDINGS: Vasculature: There is homogeneous perfusion of the pulmonary vasculature bilaterally. No intraluminal filling defects or evidence for pulmonary embolus is seen. Airway: The airway is clear. No endobronchial lesion is identified. Lungs: Extensive groundglass opacities are present throughout both lungs characteristic of a viral ty pe pneumonitis and Covid 19 pneumonia. The lungs are otherwise clear of confluent alveolar opacities, air bronchograms or pulmonary nodules. Pleura: There is no evidence for pleural effusion. There is no evidence for pneumothorax. Mediastinum: There is no evidence for pathologic adenopathy. The heart size is within normal limits. The thoracic aorta is within normal limits. There is no evidence for pericardial effusion. Upper abdomen:The adrenal glands are normal bilaterally. There is a small sliding-type hiatal hernia. Osseous structures: There is no acute osseous pathology. Impression: 1. No CTA evidence for pulmonary embolus. 2. Extensive groundglass opacities are present throughout both lungs characteristic of a viral type p neumonitis and Covid 19 pneumonia. ACT 112: Negative or not required by law. Electronically signed by: Hair Doshi M.D. 05/20/2021 10:01 AM
[2021-05-20] MEDS ORDERED: LORazepam 0.5 MG/1 ML VIAL IV STA (10:26)
[2021-05-20] MEDS ORDERED: SODIUM CHLORIDE 0.9% 10ML FLUSH IV SCH (11:00)
[2021-05-20] MEDS ORDERED: REMDESIVIR 200 MG in SODIUM CHLORIDE 0.9% 210 ML IV ONE (11:15)
[2021-05-20 11:33] LABS: Base Excess ABG -0.9 mEq/L (-9-1.8); HCO3 ABG 23 mmol/L (19-24); Oxygen Saturation ABG 94.5 % (90-95); PCO2 ABG 37 mmHg (35-46); PO2 ABG 70 mmHg (80-95); pH ABG 7.42 (7.35-7.45)
[2021-05-20 11:46] LABS: Allen Test Pos (Pos)
[2021-05-20] MEDS: POLYETHYLENE (MIRALAX) 17 GM PACK PO SCH (11:58)
[2021-05-20] MEDS: ACETAMINOPHEN 325 MG TAB PO SCH ×3 (12:00→23:20)
[2021-05-20] MEDS ORDERED: ENOXAPARIN INJ 40 MG/0.4 ML SYR SQ SCH (12:00)
[2021-05-20] MEDS ORDERED: SODIUM CHLORIDE 0.9% 10ML FLUSH IV ONE (13:15)
[2021-05-20] MEDS: cefTRIAXone SODIUM 1,000 MG in DEXTROSE 5% 50 ML IV SCH (13:34)
[2021-05-20] MEDS: AZITHROMYCIN 500 MG in DEXTROSE 5% 250 ML IV SCH (13:39)
--- NOTE | 2021-05-20 14:34 | XRay Report ---
XR lumbar spine 1V HISTORY: 61 years-old Male back pain acute low back pain without reported trauma COMPARISON: CTA chest 05/20/2021, Lumbar spine radiographs 05/16/2021 TECHNIQUE: Supine AP view of the lumbar spine FINDINGS: Mild to moderate multilevel degenerative changes. Bilateral L5 pars defects are better seen on prior. No acute fracture or subluxation. Contrast is noted within the renal collecting systems and urinary bladder. IMPRESSION: No acute fracture. ACT 112: Negative or not required by law. The above report was generated using voice recognition software. It may contain grammatical, syntax o r spelling errors. Electronically signed by: Barron Henderson M.D. 05/20/2021 2:32 PM
[2021-05-20 15:02] LABS: Appearance Urine Clear (Clear); Bacteria Urine Automated Negative (Negative); Bilirubin Urine Negative (Negative); Blood Urine Negative (Negative); Color Urine Dark Yellow; Epithelial Cell Urine Auto 20-30 /lpf (0-5); Glucose Urine UA Negative (Negative); Ketones Urine 2+ (Negative); Leukocyte Esterase Urine Negative (Negative); Nitrite Urine Negative (Negative); Protein Urine 1+ (Negative); RBC Urine Automated 0-4 /hpf (0-4); Specific Gravity Urine > 1.045 (1.000-1.030); Urobilinogen Urine Negative (Negative); pH Urine 6.5 (4.5-7.5)
--- NOTE | 2021-05-20 15:07 | History & Physical Report ---
Date of Service May 20, 2021 Assessment & Plan (1) Acute respiratory failure with hypoxia: (2) Pneumonia due to COVID-19 virus: Plan: -Admit to telemetry -Patient presenting from home with reports of worsening shortness of breath, nausea, fevers. Tested positive for COVID-19 on 05/14. -In the ED, hypoxic on room air at 76%. Currently saturating well on 3 use of oxygen via nasal cannula. -CTA chest negative for pulmonary embolism, show signs consistent with mu ltifocal COVID-19 pneumonia -During our exam, patient was very restless and appeared anxious. He was given lorazepam 0.5 mg IV x 1 with improvement in symptoms. -S/p IV dexamethasone 6 mg in the ED, continue with IV dexamethasone 6 mg daily -Start remdesivir -Given elevated procalcitonin, will start IV ceftriaxone and IV azithromycin -Continue supportive care with incentive spirometer, flutter valve, as needed nebs, wean O2 as able (3) Asthma, moderate persistent: Plan: -Continue home inhalers (4) HTN (hypertension): Plan: -BP controlled, continue losartan (5) Constipation: Plan: -Start bowel regimen (6) DVT prophylaxis: Plan: -SQ Lovenox Admission and Anticipated Discharge Date Admission Date: May 20, 2021 History of Present Illness Chief Complaint: Shortness of breath Primary Care Provider: Bebo Landeros DO 61-year-old male with PMH moderate persistent asthma, migraines, HTN, other problems listed below who presents the ED for evaluation of shortness of breath. As an outpatient, patient tested positive for COVID-19 on 05/14. Patient was seen in PCPs office same day and prior to positive test, was started on Augmentin. Patient reports progressive worsening shortness of breath, generalized body aches, fever. Was seen in ED on 05/16 and had an unremarkable work-up and was discharged home. Patient did not receive COVID-19 directed therapies during ED visit. Patient presents back today with ongoing symptoms. Reports he has had a very poor appetite with nausea and vomiting. Cough productive for yellow/white sputum at times. Denies chest pain. No lightheadedness, dizziness, diaphoresis, syncopal events. Denies abdominal pain. No diarrhea but reports constipation. R eports taking Tylenol without relief of symptoms. No urinary symptoms. In the ED, patient hypoxic on room air at 76%, currently saturating well on a 3 L OxiMax. Patient is febrile at 38.7. Labs show D-dimer 10,000, CRP 21.7, procalcitonin 3.81. CTA chest negative for pulmonary embolism however showing signs of multifocal pneumonia consistent with COVID-19 pneumonia. Patient was given IV Tylenol, IV dexamethasone 6 mg, IV diphenhydramine, IV Reglan, IV Zofran, IVF. Allergies Allergy/AdvReac Type Severity Reaction Status Date / Time sumatriptan Allergy Mild RASH Verified 05/16/21 18:08 codeine AdvReac Mild SICK IN Verified 05/16/21 18:08 STOMACH Home Medications Medication Instructions Recorded Confirmed Type atorvastatin 10 mg tablet 10 mg PO DAILY 07/25/20 05/20/21 History albuterol sulfate 90 mcg/actuation 2 puff INHALATION QID PRN 05/16/21 05/20/21 History aerosol inhaler amoxicillin 875 mg-potassium 1 tab PO BID 05/16/21 05/20/21 History clavulanate 125 mg tablet cholecalciferol (vitamin D3) 50 2,000 unit PO DAILY 05/16/21 05/20/21 History mcg (2,000 unit) capsule (Vitamin D3) dupilumab 300 mg/2 mL subcutaneous 300 mg SUBCUT UD 05/16/21 05/20/21 History syringe (Dupixent) fluticasone furoate 200 1 ea INHALATION UD 05/16/21 05/20/21 History mcg-vilanterol 25 mcg/dose inhalation powder (Breo Ellipta) losartan 25 mg tablet 25 mg PO DAILY 05/16/21 05/20/21 History montelukast 10 mg tablet 10 mg PO DAILY 05/16/21 05/20/21 History omeprazole 40 mg capsule,delayed 40 mg PO DAILYBB 05/16/21 05/20/21 History release tadalafil 5 mg tablet 5 mg PO DAILY PRN 05/16/21 05/20/21 History ondansetron HCl 4 mg tablet 4 mg PO DAILY PRN 05/20/21 05/20/21 History Past Med/Surg History Medical History Asthma, moderate persistent Erectile dysfunction HTN (hypertension) Hyperlipidemia Hyperprolactinemia Kidney stones Migraine Surgical History History of colonoscopy History of cystoscopy History of open reduction and internal fixation (ORIF) procedure left shoulder/elbow---hardware in place History of repair of right rotator cuff History of wisdom tooth extraction Hx of left inguinal hernia repair Family History Father Family hx of colon cancer Other No family history of adverse response to anesthesia Social History Smoking Status: Never smoker Second Hand Exposure: No; Hx Alcohol Use: No Hx Substance Use: No Preferred Language: Persian Communication Ability: Effective 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 Wheatley's addendum for physical exam Results & Data Results & Data ([facility]) Vital Signs (Past 12 Hours) Vital Signs Temp Pulse Pulse Resp BP BP Pulse Ox 05/20/21 14:42 96 H 38 H 125/87 94 05/20/21 11:54 88 27 H 125/84 91 05/20/21 11:24 79 30 H 125/89 92 05/20/21 09:19 90 42 H 122/66 95 05/20/21 08:26 94 05/20/21 08:20 76 L 05/20/21 08:13 38.7 C H 99 H 42 H 122/87 94 Laboratory Results Short CBC 05/20/21 Range/Units 08:10 WBC 7.09 (4.8-10.8) K/uL Hgb 15.0 (14.0-18.0) g/dL Hct 44.4 (42-52) % Plt Count 326 (130-400) K/uL BMP 05/20/21 08:10 Sodium 137 Potassium 3.7 Chloride 102 Carbon Dioxide 26 BUN 12 Creatinine 0.96 Glucose 103 H Calcium 8.5 Cardiac Enzymes 05/20/21 Range/Units 08:10 Troponin I < 0.015 (0-0.045) ng/ml Liver Function 05/20/21 Range/Units 08:10 Total Bilirubin 0.5 (0.2-1) mg/dl AST 80 H (15-37) U/L ALT 75 (12-78) Alkaline Phosphatase 76 (45-117) U/L Albumin 2.4 L (3.4-5.0) gm/dl Urine 05/20/21 Range/Units 14:30 Urine Color Dark Yellow Urine Appearance Clear (Clear) Urine pH 6.5 (4.5-7.5) Ur Specific [place] > 1.045 H (1.000-1.030) Urine Protein 1+ H (Negative) Urine Glucose (UA) Negative (Negative) Diagnostic Findings Chest X-Ray 05/20/21 08:26 XR chest 1V portable CLINICAL HISTORY: Dyspnea, COVID, hypoxia COMPARISON STUDY: Chest radiograph May 16, 2021. FINDINGS: Lung volumes are normal. There is no pneumothorax or pleural effusion. There has been progression of extensive bilateral airspace opacities since prior chest radiograph. Cardiomegaly is again noted. There is no evidence for pulmonary edema. IMPRESSION: Progression of extensive bilateral airspace opacities consistent with viral pneumonia. Radiographic follow-up to ensure resolution is recommended. ACT 112: Negative or not required by law. Electronically signed by: Chandra House M.D. 05/20/2021 8:44 AM Chest CTA 05/20/21 09:27 CT angio chest PE protocol CLINICAL HISTORY: Hypoxia. Covid positive. Elevated d-dimer. Evaluate for pulmonary embolus COMPARISON STUDY: 12/18/2019 and portable chest from 05/20/2021 CT DOSE: 436.62 mGy.cm TECHNIQUE: CT Angio of the chest was performed.followed by image post processing with coronal, and sagittal MIP reformats. Contrast Volume: Optiray 320, 120 ml FINDINGS: Vasculature: There is homogeneous perfusion of the pulmonary vasculature bilaterally. No intraluminal filling defects or evidence for pulmonary embolus is seen. Airway: The airway is clear. No endobronchial lesion is identified. Lungs: Extensive groundglass opacities are present throughout both lungs characteristic of a viral type pneumonitis and Covid 19 pneumonia. The lungs are otherwise clear of confluent alveolar opacities, air bronchograms or pulmonary nodules. Pleura: There is no evidence for pleural effusion. There is no evidence for pneumothorax. Mediastinum: There is no evidence for pathologic adenopathy. The heart size is within normal limits. The thoracic aorta is within normal limits. There is no evidence for pericardial effusion. Upper abdomen:The adrenal glands are normal bilaterally. There is a small sliding-type hiatal hernia. Osseous structures: There is no acute osseous pathology. Impression: 1. No CTA evidence for pulmonary embolus. 2. Extensive groundglass opacities are present throughout both lungs characteristic of a viral type pneumonitis and Covid 19 pneumonia. ACT 112: Negative or not required by law. Electronically signed by: Hair Doshi M.D. 05/20/2021 10:01 AM Lumbar Spine X-Ray 05/20/21 10:50 XR lumbar spine 1V HISTORY: 61 years-old Male back pain acute low back pain without reported trauma COMPARISON: CTA chest 05/20/2021, Lumbar spine radiographs 05/16/2021 TECHNIQUE: Supine AP view of the lumbar spine FINDINGS: Mild to moderate multilevel degenerative changes. Bilateral L5 pars defects are better seen on prior. No acute fracture or subluxation. Contrast is noted within the renal collecting systems and urinary bladder. IMPRESSION: No acute fracture. ACT 112: Negative or not required by law. The above report was generated using voice recognition software. It may contain grammatical, syntax or spelling errors. Electronically signed by: Barron Henderson M.D. 05/20/2021 2:32 PM Code Status & VTE Plan VTE Prophylaxis Plan VTE Prophylaxis will be ordered: Yes Supervising Physician Co-Signing Physician Notes Patient is a 61-year-old male with history of asthma and other medical problems presents with history of worsening shortness of breath. He was tested positive for Covid 6 days ago. He reports associated generalized body ache, fever, cough, poor appetite, nausea, vomiting. Please review HPI for complete details of presentation. He also states having low back pain. Patient was febrile while in ED. He was found to be hypoxic at 76% while [place] [address], ferritin 772, CRP 21.7, procalcitonin 3.81, AST elevated 80. CTA showed no PE, extensive groundglass opacities throughout both lungs noted consistent with viral pneumonitis. Physical Exam: Vitals signs as noted above General Appearance:Moderately built and nourished, mild distress Head: normocephalic, Atraumatic Eyes: normal inspection, EOMI Neck: supple, Trachea midline Respiratory/Chest: Decreased breath sounds, B/L Crackles, No accessory muscle use Cardiovascular: S1, S2, No murmur Abdomen/GI:Soft, Non tender, Bowel sounds present Extremities/Musculoskeletal:normal inspection, no edema Neurologic/Psych:AAOX3, grossly no focal neurological deficits Skin: normal color, warm Acute respiratory failure with hypoxia Multifocal COVID-19 pneumonia Start dexamethasone, remdesivir Empiric antibiotics given elevated procalcitonin Supplemental oxygen, nebs, Lasix as needed Increase Toprol Pulmonary hygiene Continue home inhalers for asthma DVT prophylaxis I personally reviewed the record. Patient is interviewed and examined at bedside. Patient's care is coordinated with Mariann Giordano SLOT MACHINE MECHANIC. Please refer to the documentation above for details of patient's presentation and for discussion of other issues.
--- NOTE | 2021-05-20 16:01 | Electrocardiogram Report ---
Test Reason : Blood Pressure : / mmHG Vent. Rate : 098 BPM Atrial Rate : 098 BPM P-R Int : 128 ms QRS Dur : 088 ms QT Int : 348 ms P-R-T Axes : 030 -16 007 degrees QTc Int : 444 ms Sinus rhythm Otherwise normal ECG Confirmed by Jarrett Coleman ([id number]) on 05/20/2021 4:01:22 PM Referred By: Confirmed By:Jarrett Coleman
[2021-05-20] MEDS: LORazepam 0.5 MG/1 ML VIAL IV PRN ×2 (17:33→23:20)
[2021-05-20] MEDS: DOCUSATE SODIUM 100 MG CAP PO SCH (21:35)
[2021-05-20] MEDS: ENOXAPARIN INJ 40 MG/0.4 ML SYR SQ SCH (21:35)
[2021-05-20] MEDS: ONDANSETRON INJ 2 MG/ML 2 ML VIAL IV PRN (23:22)
[2021-05-21] MEDS: PANTOprazole 40 MG TAB PO SCH (05:46)
[2021-05-21] MEDS: ACETAMINOPHEN 325 MG TAB PO SCH ×3 (05:46→21:03)
[2021-05-21] MEDS: LORazepam 0.5 MG/1 ML VIAL IV PRN ×3 (05:51→22:19)
[2021-05-21 06:30] LABS: Hematocrit (blood only) 40.2 % (42-52); Hemoglobin 13.6 g/dL (14.0-18.0); Mean Corpuscular Hgb Conc 33.8 g/dL (32-36); Mean Corpuscular Volume 85.7 fL (80-100); Mean Platelet Volume 10.6 fL (7.4-10.4); Platelet Count 349 K/uL (130-400); RDW Coefficient of Variation 13.6 % (11.5-14.5); RDW Standard Deviation 42.8 fL (36.4-46.3); Red Blood Count 4.69 M/uL (4.7-6.1); White Blood Count 6.04 K/uL (4.8-10.8)
[2021-05-21 07:18] LABS: BUN Creatinine Ratio 16.9 (10-20); Calcium 8.4 mg/dl (8.5-10.1); Creatinine Clr Calc Pharmacy 99.5 ml/min; Est GFR (African American) 113.2 ml/min; Est GFR (Non-African American) 97.6 ml/min; Magnesium 2.3 mg/dl (1.8-2.4); Potassium 3.6 mmol/L (3.5-5.1)
[2021-05-21] MEDS: ATORVASTATIN 10 MG TAB PO SCH (09:17)
[2021-05-21] MEDS: dexAMETHasone 6 MG in SYRINGE 0 ML IV SCH (09:18)
[2021-05-21] MEDS: DOCUSATE SODIUM 100 MG CAP PO SCH ×2 (09:18→22:19)
[2021-05-21] MEDS: FLUTICASONE/VILANTEROL 200/25MCG 14 PUFFS/INHALER INH SCH (09:19)
[2021-05-21] MEDS: LOSARTAN POTASSIUM 25 MG TAB PO SCH (09:19)
[2021-05-21] MEDS: ENOXAPARIN INJ 40 MG/0.4 ML SYR SQ SCH ×2 (09:19→22:19)
[2021-05-21] MEDS: MONTELUKAST SODIUM 10 MG TABLET PO SCH (09:20)
[2021-05-21] MEDS: POLYETHYLENE (MIRALAX) 17 GM PACK PO SCH (09:21)
[2021-05-21] MEDS: cefTRIAXone SODIUM 1,000 MG in DEXTROSE 5% 50 ML IV SCH (13:00)
[2021-05-21] MEDS: AZITHROMYCIN 500 MG in DEXTROSE 5% 250 ML IV SCH (13:15)
[2021-05-21] MEDS: REMDESIVIR 100 MG in SODIUM CHLORIDE 0.9% 230 ML IV SCH (13:30)
[2021-05-21] MEDS: SODIUM CHLORIDE 0.9% 10ML FLUSH IV SCH (14:47)
[2021-05-21] MEDS: BENZONATATE 100 MG CAPSULE PO SCH ×2 (15:00→22:19)
[2021-05-21] MEDS: ONDANSETRON INJ 2 MG/ML 2 ML VIAL IV PRN ×2 (16:11→22:19)
--- NOTE | 2021-05-21 16:57 | Hospitalist Progress Note ---
Date of Service May 21, 2021 Assessment & Plan (1) Acute respiratory failure with hypoxia: (2) Pneumonia due to COVID-19 virus: Plan: #. Acute respiratory failure with hypoxia #. Covid pneumonia #. Likely superimposed bacterial pneumonia Vaccine status/month: Not vaccinated; S/S : Started May 13; Tested Positive: May 14 Admitting pro-Hira: 3.81 Admitting imaging: Admitting CTA chest negative for PE, suggestive of viral type pneumonitis and Covid pneumonia. In the ED, patient was hypoxic on room air at 76%. Clinically, patient looked ill, coughing at bedside, on 9 L oxygen by oxygen mask, in mild distress. Encourage every hour incentive spirometer/flutter valve/self proning as able Tessalon Perles and Mucinex for cough BNP: 460; Strict I's and O's; as needed IV Lasix; monitor BMP Monitor LFT daily when on remdesivir; sliding scale and glycemic pharmacy if needed when on steroid. c/w Dexamethasone 05/20 and Remdesivir 05/20. Given elevated procalcitonin, continue with Rocephin and azithromycin 05/20 #. Other chronic medical conditions: Asthma, moderate persistent; HTN; constipation Continue home inhalers/medication #. DVT prophylaxis: Subcutaneous Lovenox Full code Admission and Anticipated Discharge Date Admission Date: May 20, 2021 Subjective Patient was lying semiupright in bed, on 9 L oxygen via oxygen mask, mild distress, coughingwet nature. No new acute events overnight. Patient reports coughing with yellow sputum. Patient states he is eating less but diarrhea has improved. Patient denies chest pain/palpitations/belly pain/other review of symptoms. Physical Exam Physical Exam: GENERAL: Alert and oriented x3. NAD, on RA. HEENT: No pallor, no icterus. Pupils equal, round and reactive to light. Oral mucosa moist. NECK: No JVD, no neck masses. HEART: S1 and S2 heard. Regular rate and rhythm. No murmur, no gallop. RESPIRATORY SYSTEM: Normal AP diameter. No accessory muscle use. No wheezing, no crackles. Decreased breath sounds. Coughing at bedside exam. ABDOMEN: Soft, bowel sounds present, nontender, no distention. CENTRAL NERVOUS SYSTEM: No facial droop. Speech is clear. Obeys simple commands. Moves extremities. EXTREMITIES: No edema, no erythema seen. Results & Data Results & Data ([facility]) Vital Signs (Past 12 Hours) Vital Signs Temp Pulse Resp BP Pulse Ox Pulse Ox 05/21/21 12:02 36.7 C 82 26 H 120/88 93 05/21/21 11:00 92 05/21/21 07:02 36.6 C 74 22 122/79 94
[2021-05-21] MEDS: ALBUT/IPRATROP 3MG/0.5MG NEB 3 ML VIAL NEB PRN (20:43)
[2021-05-21] MEDS: BACLOFEN 10 MG TAB PO PRN (21:03)
--- NOTE | 2021-05-21 21:37 | Electrocardiogram Report ---
Test Reason : Blood Pressure : / mmHG Vent. Rate : 078 BPM Atrial Rate : 078 BPM P-R Int : 140 ms QRS Dur : 086 ms QT Int : 416 ms P-R-T Axes : 043 -19 -04 degrees QTc Int : 474 ms Normal sinus rhythm Nonspecific ST and T wave abnormality Abnormal ECG When compared with ECG of 20-MAY-2021 08:13, No significant change was found Confirmed by Harsh Kulkarni ([id number]) on 05/21/2021 9:37:02 PM Referred By: REFERRED SELF Confirmed By:Harsh Kulkarni
[2021-05-21] MEDS: guaiFENesin 600 MG TABCR PO SCH (22:19)
[2021-05-22] MEDS: ACETAMINOPHEN 325 MG TAB PO SCH ×3 (01:31→13:09)
[2021-05-22] MEDS: PANTOprazole 40 MG TAB PO SCH (05:31)
[2021-05-22] MEDS: BACLOFEN 10 MG TAB PO PRN (05:32)
[2021-05-22] MEDS: LORazepam 0.5 MG/1 ML VIAL IV PRN (05:32)
[2021-05-22] MEDS: ALBUT/IPRATROP 3MG/0.5MG NEB 3 ML VIAL NEB PRN (05:34)
[2021-05-22 06:12] LABS: Hematocrit (blood only) 42.4 % (42-52); Hemoglobin 14.2 g/dL (14.0-18.0); Mean Corpuscular Hemoglobin 28.9 pg (25-34); Mean Corpuscular Hgb Conc 33.5 g/dL (32-36); Mean Corpuscular Volume 86.4 fL (80-100); Mean Platelet Volume 10.6 fL (7.4-10.4); Platelet Count 414 K/uL (130-400); RDW Coefficient of Variation 13.6 % (11.5-14.5); RDW Standard Deviation 43.2 fL (36.4-46.3); Red Blood Count 4.91 M/uL (4.7-6.1); White Blood Count 10.82 K/uL (4.8-10.8)
[2021-05-22 06:42] LABS: Calcium 8.7 mg/dl (8.5-10.1); Creatinine Clr Calc Pharmacy 84.8 ml/min; Est GFR (Non-African American) 91.4 ml/min; Potassium 3.7 mmol/L (3.5-5.1)
[2021-05-22] MEDS: MONTELUKAST SODIUM 10 MG TABLET PO SCH (08:38)
[2021-05-22] MEDS: BENZONATATE 100 MG CAPSULE PO SCH ×3 (08:38→21:10)
[2021-05-22] MEDS: POLYETHYLENE (MIRALAX) 17 GM PACK PO SCH (08:38)
[2021-05-22] MEDS: ATORVASTATIN 10 MG TAB PO SCH (08:38)
[2021-05-22] MEDS: dexAMETHasone 6 MG in SYRINGE 0 ML IV SCH (08:38)
[2021-05-22] MEDS: LOSARTAN POTASSIUM 25 MG TAB PO SCH (08:38)
[2021-05-22] MEDS: DOCUSATE SODIUM 100 MG CAP PO SCH ×2 (08:39→21:10)
[2021-05-22] MEDS: ENOXAPARIN INJ 40 MG/0.4 ML SYR SQ SCH ×2 (08:39→21:10)
[2021-05-22] MEDS: guaiFENesin 600 MG TABCR PO SCH ×2 (08:39→21:10)
[2021-05-22] MEDS: FLUTICASONE/VILANTEROL 200/25MCG 14 PUFFS/INHALER INH SCH (08:40)
[2021-05-22] MEDS ORDERED: PROMETHAZINE HCL 12.5 MG in SODIUM CHLORIDE 0.9% 50 ML IV PRN (09:55)
[2021-05-22] MEDS: AZITHROMYCIN 500 MG in DEXTROSE 5% 250 ML IV SCH (11:18)
[2021-05-22] MEDS: cefTRIAXone SODIUM 1,000 MG in DEXTROSE 5% 50 ML IV SCH (11:18)
[2021-05-22] MEDS: REMDESIVIR 100 MG in SODIUM CHLORIDE 0.9% 230 ML IV SCH (13:09)
[2021-05-22] MEDS ORDERED: FUROSEMIDE 40 MG/4 ML VIAL IV ONE (14:37)
[2021-05-22] MEDS: SODIUM CHLORIDE 0.9% 10ML FLUSH IV SCH (14:45)
[2021-05-22] MEDS ORDERED: ACETAMINOPHEN 325 MG TAB PO PRN (15:37)
--- NOTE | 2021-05-22 18:39 | Hospitalist Progress Note ---
Date of Service May 22, 2021 Assessment & Plan (1) Acute respiratory failure with hypoxia: (2) Pneumonia due to COVID-19 virus: Plan: #. Acute respiratory failure with hypoxia #. Covid pneumonia #. Likely superimposed bacterial pneumonia Vaccine status/month: Not vaccinated; S/S : Started May 13; Tested Positive: May 14 Admitting pro-Hira: 3.81 Admitting imaging: Admitting CTA chest negative for PE, suggestive of viral type pneumonitis and Covid pneumonia. In the ED, patient was hypoxic on room air at 76%. Clinically, patient looked ill, coughing at bedside, on 9 L oxygen by oxygen mask, in mild distress. Encourage every hour incentive spirometer/flutter valve/self proning as able Tessalon Perles and Mucinex for cough BNP: 460; Strict I's and O's; as needed IV Lasix; monitor BMP Monitor LFT daily when on remdesivir; sliding scale and glycemic pharmacy if needed when on steroid. c/w Dexamethasone 05/20 and Remdesivir 05/20. Given elevated procalcitonin, continue with Rocephin and azithromycin 05/20 Remains shortness of breath with minimal improvement and has been requiring up to 7 L of oxygen to maintain saturation Received 1 dose of intravenous Lasix today Severe anxiety with lack of sleep-we will try melatonin Continue current management #. Other chronic medical conditions: Asthma, moderate persistent; HTN; constipation Continue home inhalers/medication #. DVT prophylaxis: Subcutaneous Lovenox Full code Admission and Anticipated Discharge Date Admission Date: May 20, 2021 Subjective 05/22/2021 The patient was seen and examined in emergency room in the holding area He is very anxious and wants something to sleep He remains shortness of breath and requires up to 7 L of oxygen to maintain saturation Review of Systems Review of Systems: All systems reviewed and are unremarkable except as noted below Respiratory: Moderate shortness of breath at rest with cough Physical Exam Physical Exam: Lying in bed with moderate shortness of breath Constitutional: well developed, well nourished, + ill appearing and + obese Eyes: PERRL, conjunctivae normal, anicteric sclerae ENMT: external ear and nose normal, oropharynx normal Neck: trachea midline, no thyromegaly Respiratory: + respiratory distress Auscultation: + diminished lung sounds and + crackles (At the bases) Gastrointestinal (Abdomen): Inspection/Auscultation: normal bowel sounds; abdomen not distended Percussion/Palpation: abdomen soft; abdomen nontender Musculoskeletal: No acute arthritis in any joint Neurologic: Alert, awake and oriented x3 Results & Data Results & Data ([facility]) Vital Signs (Past 12 Hours) Vital Signs Temp Pulse Resp BP BP Pulse Ox Pulse Ox 05/22/21 16:54 95 H 17 98/75 L 93 05/22/21 12:00 36.6 C 88 27 H 151/99 H 95 05/22/21 11:00 91 05/22/21 08:00 36.6 C 72 27 H 127/81 93 Laboratory Results Short CBC 05/22/21 Range/Units 05:48 WBC 10.82 H (4.8-10.8) K/uL Hgb 14.2 (14.0-18.0) g/dL Hct 42.4 (42-52) % Plt Count 414 H (130-400) K/uL BMP 05/22/21 05:48 Sodium 139 Potassium 3.7 Chloride 105 Carbon Dioxide 28 BUN 18 Creatinine 0.88 Glucose 121 H Calcium 8.7 Liver Function 05/22/21 Range/Units 05:48 AST 22 (15-37) U/L ALT 45 (12-78) Medications Administered Current Inpatient Medications Acetaminophen (Acetaminophen 325 Mg Tab) 650 mg PO Q6H PRN PRN Reason: Temp Stop: 06/19/21 11:59 Albuterol (Albut/Ipratrop 3mg/0.5mg Neb 3 Ml Vial) 3 ml NEB Q4R PRN PRN Reason: Shortness Of Breath Or Wheezing Stop: 06/19/21 18:59 Last Admin: 05/22/21 05:34 Dose: 3 ml Documented by: Atorvastatin Calcium (Atorvastatin 10 Mg Tab) 10 mg PO DAILY [facility] Stop: 06/20/21 08:59 Last Admin: 05/22/21 08:38 Dose: 10 mg Documented by: Baclofen (Baclofen 10 Mg Tab) 10 mg PO TID PRN PRN Reason: muscle spasm Stop: 06/19/21 13:59 Last Admin: 05/22/21 05:32 Dose: 10 mg Documented by: Benzonatate (Benzonatate 100 Mg Capsule) 100 mg PO TID [facility] Stop: 06/20/21 13:59 Last Admin: 05/22/21 15:05 Dose: 100 mg Documented by: Docusate Sodium (Docusate Sodium 100 Mg Cap) 100 mg PO BID [facility] Stop: 06/19/21 20:59 Last Admin: 05/22/21 08:39 Dose: 100 mg Documented by: Enoxaparin Sodium (Enoxaparin Inj 40 Mg/0.4 Ml Syr) 40 mg SQ BID [facility] Stop: 06/19/21 20:59 Last Admin: 05/22/21 08:39 Dose: 40 mg Documented by: Fluticasone/Vilanterol (Fluticasone/Vilanterol 200/25mcg 14 Puffs/Inhaler) 1 puffs INH DAILY [facility] Stop: 06/20/21 08:59 Last Admin: 05/22/21 08:40 Dose: 1 puffs Documented by: Guaifenesin (Guaifenesin 600 Mg Tabcr) 1,200 mg PO Q12 [facility] Stop: 06/20/21 20:59 Last Admin: 05/22/21 08:39 Dose: 1,200 mg Documented by: Dexamethasone 6 mg/ Syringe 1.5 mls @ 1 mls/min IV DAILY [facility] Stop: 05/31/21 08:59 Last Admin: 05/22/21 08:38 Dose: 1 mls/min Documented by: Ceftriaxone Sodium 1,000 mg/ (Dextrose) 50 mls @ 100 mls/hr IV Q24H [facility]; Protocol Stop: 05/27/21 11:29 Last Infusion: 05/22/21 12:19 Dose: Infused Documented by: Azithromycin 500 mg/ Dextrose 255 mls @ 125 mls/hr IV Q24H [facility]; Protocol Stop: 05/27/21 11:59 Last Infusion: 05/22/21 13:50 Dose: Infused Documented by: Remdesivir 100 mg/ Sodium (Chloride) 250 mls @ 250 mls/hr IV Q24H [facility]; Protocol Stop: 05/24/21 12:59 Last Infusion: 05/22/21 14:45 Dose: Infused Documented by: Promethazine HCl 12.5 mg/ (Sodium Chloride) 50.5 mls @ 202 mls/hr IV Q6H PRN PRN Reason: Nausea And Vomiting Stop: 06/21/21 09:54 Losartan Potassium (Losartan Potassium 25 Mg Tab) 25 mg PO DAILY [facility] Stop: 01/08/22 08:59 Last Admin: 05/22/21 08:38 Dose: 25 mg Documented by: Melatonin (Melatonin 3 Mg Tab) 3 mg PO HS PRN PRN Reason: Sleep Stop: 06/21/21 15:39 Montelukast Sodium (Montelukast Sodium 10 Mg Tablet) 10 mg PO DAILY [facility] Stop: 06/20/21 08:59 Last Admin: 05/22/21 08:38 Dose: 10 mg Documented by: Pantoprazole Sodium (Pantoprazole 40 Mg Tab) 40 mg PO DAILYBB [facility] Stop: 06/20/21 06:29 Last Admin: 05/22/21 05:31 Dose: 40 mg Documented by: Polyethylene Glycol (Polyethylene (Miralax) 17 Gm Pack) 17 gm PO DAILY [facility] Stop: 06/19/21 10:59 Last Admin: 05/22/21 08:38 Dose: 17 gm Documented by: Sodium Chloride (Sodium Chloride 0.9% 10ml Flush) 30 ml IV Q24H [facility] Stop: 05/24/21 12:01 Last Admin: 05/22/21 14:45 Dose: 30 ml Documented by:
[2021-05-22] MEDS: MELATONIN 3 MG TAB PO PRN ×2 (21:11→23:05)
[2021-05-23] MEDS: PANTOprazole 40 MG TAB PO SCH (05:57)
[2021-05-23 08:17] LABS: Albumin Level 2.1 gm/dl (3.4-5.0); BUN Creatinine Ratio 26.4 (10-20); Calcium 8.1 mg/dl (8.5-10.1); Creatinine Clr Calc Pharmacy 81.3 ml/min; Est GFR (African American) 102.2 ml/min; Est GFR (Non-African American) 88.2 ml/min; Potassium 3.5 mmol/L (3.5-5.1)
[2021-05-23 08:20] LABS: Albumin Globulin Ratio 0.5 (0.9-2); Bilirubin,Total 0.3 mg/dl (0.2-1); Globulin 4.4 gm/dl (2.5-4.0); Total Protein 6.5 gm/dl (6.4-8.2)
[2021-05-23] MEDS: dexAMETHasone 6 MG in SYRINGE 0 ML IV SCH (09:28)
[2021-05-23] MEDS: BENZONATATE 100 MG CAPSULE PO SCH ×3 (09:29→21:10)
[2021-05-23] MEDS: DOCUSATE SODIUM 100 MG CAP PO SCH ×2 (09:29→21:10)
[2021-05-23] MEDS: ATORVASTATIN 10 MG TAB PO SCH (09:29)
[2021-05-23] MEDS: MONTELUKAST SODIUM 10 MG TABLET PO SCH (09:30)
[2021-05-23] MEDS: ENOXAPARIN INJ 40 MG/0.4 ML SYR SQ SCH ×2 (09:30→21:11)
[2021-05-23] MEDS: LOSARTAN POTASSIUM 25 MG TAB PO SCH (09:30)
[2021-05-23] MEDS: guaiFENesin 600 MG TABCR PO SCH ×2 (09:30→21:10)
[2021-05-23] MEDS: FLUTICASONE/VILANTEROL 200/25MCG 14 PUFFS/INHALER INH SCH (09:31)
[2021-05-23] MEDS: POLYETHYLENE (MIRALAX) 17 GM PACK PO SCH (09:31)
[2021-05-23] MEDS ORDERED: POTASSIUM CHLORIDE CRTAB 20 MEQ TABCR PO STA (11:46)
[2021-05-23] MEDS ORDERED: FUROSEMIDE 40 MG/4 ML VIAL IV ONE (12:00)
[2021-05-23] MEDS: cefTRIAXone SODIUM 1,000 MG in DEXTROSE 5% 50 ML IV SCH (12:01)
[2021-05-23] MEDS: REMDESIVIR 100 MG in SODIUM CHLORIDE 0.9% 230 ML IV SCH (12:02)
[2021-05-23] MEDS: AZITHROMYCIN 500 MG in DEXTROSE 5% 250 ML IV SCH (12:03)
[2021-05-23] MEDS: SODIUM CHLORIDE 0.9% 10ML FLUSH IV SCH (13:12)
--- NOTE | 2021-05-23 15:20 | Hospitalist Progress Note ---
Date of Service May 23, 2021 Assessment & Plan (1) Acute respiratory failure with hypoxia: (2) Pneumonia due to COVID-19 virus: Plan: #. Acute respiratory failure with hypoxia #. Covid pneumonia #. Likely superimposed bacterial pneumonia Vaccine status/month: Not vaccinated; S/S : Started May 13; Tested Positive: May 14 Admitting pro-Hira: 3.81 Admitting imaging: Admitting CTA chest negative for PE, suggestive of viral type pneumonitis and Covid pneumonia. In the ED, patient was hypoxic on room air at 76%. Clinically, patient looked ill, coughing at bedside, on 9 L oxygen by oxygen mask, in mild distress. Encourage every hour incentive spirometer/flutter valve/self proning as able Tessalon Perles and Mucinex for cough BNP: 460; Strict I's and O's; as needed IV Lasix; monitor BMP Monitor LFT daily when on remdesivir; sliding scale and glycemic pharmacy if needed when on steroid. c/w Dexamethasone 05/20 and Remdesivir 05/20. Given elevated procalcitonin, continue with Rocephin and azithromycin 05/20 Remains shortness of breath with minimal improvement and has been requiring up to 7 L of oxygen to maintain saturation Received 1 dose of intravenous Lasix today Severe anxiety with lack of sleep-we will try melatonin Has had a good sleep last night Clinically a little better and will receive another dose of intravenous Lasix today #. Other chronic medical conditions: Asthma, moderate persistent; HTN; con stipation Continue home inhalers/medication #. DVT prophylaxis: Subcutaneous Lovenox Full code Admission and Anticipated Discharge Date Admission Date: May 20, 2021 Subjective 05/22/2021 The patient was seen and examined in emergency room in the holding area He is very anxious and wants something to sleep He remains shortness of breath and requires up to 7 L of oxygen to maintain saturation 05/23/2021 The patient was seen and examined in telemetry unit and in the Covid room He remains very anxious and oxygen requirements remains at 8 L/min to maintain saturation Still has cough and moderate shortness of breath at rest Review of Systems Review of Systems: All systems reviewed and are unremarkable except as noted below Respiratory: Moderate shortness of breath at rest with cough Physical Exam Physical Exam: Lying in bed with moderate shortness of breath Constitutional: well developed, well nourished, + ill appearing and + obese Eyes: PERRL, conjunctivae normal, anicteric sclerae ENMT: external ear and nose normal, oropharynx normal Neck: trachea midline, no thyromegaly Respiratory: + respiratory distress Auscultation: + diminished lung sounds and + crackles (At the bases) Cardiovascular: Rate/Rhythm: regular rate and regular rhythm; not tachycardic Heart Sounds: normal S1 and normal S2; no murmur Extremities: no edema Gastrointestinal (Abdomen): Inspection/Auscultation: normal bowel sounds; abdomen not distended Percussion/Palpation: abdomen soft; abdomen nontender Musculoskeletal: No acute arthritis in any joint Neurologic: Alert, awake and oriented x3. No focal sensory and motor deficit appreciated Results & Data Results & Data ([facility]) Vital Signs (Past 12 Hours) Vital Signs Temp Pulse Pulse Resp BP BP Pulse Ox 05/23/21 14:20 94 05/23/21 12:00 97 05/23/21 11:00 05/23/21 10:52 36.5 C 72 20 134/86 97 05/23/21 07:00 56 L 05/23/21 05:43 66 05/23/21 05:42 36.5 C 82 18 141/98 H 92 05/23/21 04:20 94 05/23/21 03:55 36.6 C 86 23 113/93 Pulse Ox 05/23/21 14:20 05/23/21 12:00 05/23/21 11:00 95 05/23/21 10:52 05/23/21 07:00 05/23/21 05:43 05/23/21 05:42 05/23/21 04:20 05/23/21 03:55 Laboratory Results [facility] 05/23/21 07:23 Sodium 142 Potassium 3.5 Chloride 105 Carbon Dioxide 31 BUN 24 H Creatinine 0.92 Glucose 96 Calcium 8.1 L Liver Function 05/23/21 Range/Units 07:23 Total Bilirubin 0.3 (0.2-1) mg/dl AST 31 (15-37) U/L ALT 45 (12-78) Alkaline Phosphatase 61 (45-117) U/L Albumin 2.1 L (3.4-5.0) gm/dl Medications Administered Current Inpatient Medications Acetaminophen (Acetaminophen 325 Mg Tab) 650 mg PO Q6H PRN PRN Reason: Temp Stop: 06/19/21 11:59 Albuterol (Albut/Ipratrop 3mg/0.5mg Neb 3 Ml Vial) 3 ml NEB Q4R PRN PRN Reason: Shortness Of Breath Or Wheezing Stop: 06/19/21 18:59 Last Admin: 05/22/21 05:34 Dose: 3 ml Documented by: Atorvastatin Calcium (Atorvastatin 10 Mg Tab) 10 mg PO DAILY [facility] Stop: 06/20/21 08:59 Last Admin: 05/23/21 09:29 Dose: 10 mg Documented by: Baclofen (Baclofen 10 Mg Tab) 10 mg PO TID PRN PRN Reason: muscle spasm Stop: 06/19/21 13:59 Last Admin: 05/22/21 05:32 Dose: 10 mg Documented by: Benzonatate (Benzonatate 100 Mg Capsule) 100 mg PO TID [facility] Stop: 06/20/21 13:59 Last Admin: 05/23/21 14:32 Dose: 100 mg Documented by: Docusate Sodium (Docusate Sodium 100 Mg Cap) 100 mg PO BID [facility] Stop: 06/19/21 20:59 Last Admin: 05/23/21 09:29 Dose: 100 mg Documented by: Enoxaparin Sodium (Enoxaparin Inj 40 Mg/0.4 Ml Syr) 40 mg SQ BID [facility] Stop: 06/19/21 20:59 Last Admin: 05/23/21 09:30 Dose: 40 mg Documented by: Fluticasone/Vilanterol (Fluticasone/Vilanterol 200/25mcg 14 Puffs/Inhaler) 1 pu ffs INH DAILY [facility] Stop: 06/20/21 08:59 Last Admin: 05/23/21 09:31 Dose: 1 puffs Documented by: Guaifenesin (Guaifenesin 600 Mg Tabcr) 1,200 mg PO Q12 [facility] Stop: 06/20/21 20:59 Last Admin: 05/23/21 09:30 Dose: 1,200 mg Documented by: Dexamethasone 6 mg/ Syringe 1.5 mls @ 1 mls/min IV DAILY [facility] Stop: 05/31/21 08:59 Last Admin: 05/23/21 09:28 Dose: 1 mls/min Documented by: Ceftriaxone Sodium 1,000 mg/ (Dextrose) 50 mls @ 100 mls/hr IV Q24H [facility]; Protocol Stop: 05/27/21 11:29 Last Infusion: 05/23/21 13:15 Dose: Infused Documented by: Azithromycin 500 mg/ Dextrose 255 mls @ 125 mls/hr IV Q24H [facility]; Protocol Stop: 05/27/21 11:59 Last Infusion: 05/23/21 14:10 Dose: Infused Documented by: Remdesivir 100 mg/ Sodium (Chloride) 250 mls @ 250 mls/hr IV Q24H [facility]; Protocol Stop: 05/24/21 12:59 Last Infusion: 05/23/21 13:15 Dose: Infused Documented by: Promethazine HCl 12.5 mg/ (Sodium Chloride) 50.5 mls @ 202 mls/hr IV Q6H PRN PRN Reason: Nausea And Vomiting Stop: 06/21/21 09:54 Losartan Potassium (Losartan Potassium 25 Mg Tab) 25 mg PO DAILY [facility] Stop: 06/20/21 08:59 Last Admin: 05/23/21 09:30 Dose: 25 mg Documented by: Melatonin (Melatonin 3 Mg Tab) 3 mg PO HS PRN PRN Reason: Sleep Stop: 06/21/21 15:39 Last Admin: 05/22/21 23:05 Dose: 3 mg Documented by: Montelukast Sodium (Montelukast Sodium 10 Mg Tablet) 10 mg PO DAILY [facility] Stop: 06/20/21 08:59 Last Admin: 05/23/21 09:30 Dose: 10 mg Documented by: [facility]oprazole [facility] ([facility] 40 Mg [facility]) [facility]: 06/20/21 06:29 Last Admin: 05/23/21 05:57 Dose: 40 mg Documented by: Polyethylene Glycol (Polyethylene (Miralax) 17 Gm Pack) 17 gm PO DAILY [facility] Stop: 06/19/21 10:59 Last Admin: 05/23/21 09:31 Dose: Not Given Documented by: Sodium Chloride (Sodium Chloride 0.9% 10ml Flush) 30 ml IV Q24H [facility] Stop: 05/24/21 12:01 Last Admin: 05/23/21 13:12 Dose: 30 ml Documented by:
[2021-05-24] MEDS: PANTOprazole 40 MG TAB PO SCH (06:14)
[2021-05-24 08:06] LABS: Creatinine Clr Calc Pharmacy 101.9 ml/min; Est GFR (African American) 113.8 ml/min; Est GFR (Non-African American) 98.2 ml/min
[2021-05-24] MEDS: BENZONATATE 100 MG CAPSULE PO SCH ×3 (08:10→21:54)
[2021-05-24] MEDS: dexAMETHasone 6 MG in SYRINGE 0 ML IV SCH (08:10)
[2021-05-24] MEDS: ENOXAPARIN INJ 40 MG/0.4 ML SYR SQ SCH ×2 (08:11→21:54)
[2021-05-24] MEDS: guaiFENesin 600 MG TABCR PO SCH ×2 (08:11→21:54)
[2021-05-24] MEDS: LOSARTAN POTASSIUM 25 MG TAB PO SCH (08:12)
[2021-05-24] MEDS: MONTELUKAST SODIUM 10 MG TABLET PO SCH (08:12)
[2021-05-24] MEDS: DOCUSATE SODIUM 100 MG CAP PO SCH ×2 (08:12→21:54)
[2021-05-24] MEDS: FLUTICASONE/VILANTEROL 200/25MCG 14 PUFFS/INHALER INH SCH (08:13)
[2021-05-24] MEDS: POLYETHYLENE (MIRALAX) 17 GM PACK PO SCH (08:13)
[2021-05-24] MEDS: ATORVASTATIN 10 MG TAB PO SCH (08:14)
[2021-05-24] MEDS ORDERED: FUROSEMIDE 40 MG/4 ML VIAL IV ONE (10:24)
[2021-05-24] MEDS ORDERED: POTASSIUM CHLORIDE CRTAB 20 MEQ TABCR PO STA (10:24)
[2021-05-24] MEDS: AZITHROMYCIN 500 MG in DEXTROSE 5% 250 ML IV SCH (11:12)
[2021-05-24] MEDS: REMDESIVIR 100 MG in SODIUM CHLORIDE 0.9% 230 ML IV SCH (11:13)
[2021-05-24] MEDS: cefTRIAXone SODIUM 1,000 MG in DEXTROSE 5% 50 ML IV SCH (11:28)
[2021-05-24] MEDS: SODIUM CHLORIDE 0.9% 10ML FLUSH IV SCH (12:21)
--- NOTE | 2021-05-24 12:43 | Hospitalist Progress Note ---
Date of Service May 24, 2021 Assessment & Plan (1) Acute respiratory failure with hypoxia: (2) Pneumonia due to COVID-19 virus: Plan: #. Acute respiratory failure with hypoxia #. Covid pneumonia #. Likely superimposed bacterial pneumonia Vaccine status/month: Not vaccinated; S/S : Started May 13; Tested Positive: May 14 Admitting pro-Hira: 3.81 Admitting imaging: Admitting CTA chest negative for PE, suggestive of viral type pneumonitis and Covid pneumonia. In the ED, patient was hypoxic on room air at 76%. Clinically, patient looked ill, coughing at bedside, on 9 L oxygen by oxygen mask, in mild distress. Encourage every hour incentive spirometer/flutter valve/self proning as able Tessalon Perles and Mucinex for cough BNP: 460; Strict I's and O's; as needed IV Lasix; monitor BMP Monitor LFT daily when on remdesivir; sliding scale and glycemic pharmacy if needed when on steroid. c/w Dexamethasone 05/20 and Remdesivir 05/20. 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 Other chronic medical conditions: Asthma, moderate persistent; HTN; constipation Continue home inhalers/medication #. DVT prophylaxis: Subcutaneous Lovenox Full code Admission and Anticipated Discharge Date Admission Date: May 20, 2021 Subjective 05/22/2021 The patient was seen and examined in emergency room in the holding area He is very anxious and wants something to sleep He remains shortness of breath and requires up to 7 L of oxygen to maintain saturation 05/23/2021 The patient was seen and examined in telemetry unit and in the Covid room He remains very anxious and oxygen requirements remains at 8 L/min to maintain saturation Still has cough and moderate shortness of breath at rest 05/24/2021 The patient was seen and examined in telemetry unit and in the Covid room He has been feeling much better and oxygen requirements has come down to 4 L He will get another dose of Lasix today Review of Systems Review of Systems: All systems reviewed and are unremarkable except as noted below Respiratory: Moderate shortness of breath at rest with cough Physical Exam Physical Exam: Lying in bed with moderate shortness of breath Constitutional: well developed, well nourished, + ill appearing and + obese Eyes: PERRL, conjunctivae normal, anicteric sclerae ENMT: external ear and nose normal, oropharynx normal Neck: trachea midline, no thyromegaly Respiratory: + respiratory distress Auscultation: + diminished lung sounds and + crackles (At the bases) Cardiovascular: Rate/Rhythm: regular rate and regular rhythm; not tachycardic Heart Sounds: normal S1 and normal S2; no murmur Extremities: no edema Gastrointestinal (Abdomen): Inspection/Auscultation: normal bowel sounds; abdomen not distended Percussion/Palpation: abdomen soft; abdomen nontender Musculoskeletal: no cyanosis or clubbing, extremities motor strength 5/5 Neurologic: CN's II-XI intact bilaterally and moves all extremities; no focal motor deficits Lymphatic: no cervical or axillary lymphadenopathy Results & Data Results & Data ([facility]) Vital Signs (Past 12 Hours) Vital Signs Temp Pulse Pulse Resp BP Pulse Ox Pulse Ox 05/24/21 11:33 36.5 C 82 18 136/85 94 05/24/21 11:00 96 05/24/21 08:02 36.5 C 74 22 121/70 98 05/24/21 07:00 73 05/24/21 03:47 36.5 C 94 H 16 136/89 98 Laboratory Results [facility] 05/24/21 05:58 Creatinine 0.74 Liver Function 05/24/21 Range/Units 05:58 AST 34 (15-37) U/L ALT 53 (12-78) Medications Administered Current Inpatient Medications Acetaminophen (Acetaminophen 325 Mg Tab) 650 mg PO Q6H PRN PRN Reason: Temp Stop: 06/19/21 11:59 Albuterol (Albut/Ipratrop 3mg/0.5mg Neb 3 Ml Vial) 3 ml NEB Q4R PRN PRN Reason: Shortness Of Breath Or Wheezing Stop: 06/19/21 18:59 Last Admin: 05/22/21 05:34 Dose: 3 ml Documented by: Atorvastatin Calcium (Atorvastatin 10 Mg Tab) 10 mg PO DAILY [facility] Stop: 06/20/21 08:59 Last Admin: 05/24/21 08:14 Dose: 10 mg Documented by: Baclofen (Baclofen 10 Mg Tab) 10 mg PO TID PRN PRN Reason: muscle spasm Stop: 06/19/21 13:59 Last Admin: 05/22/21 05:32 Dose: 10 mg Documented by: Benzonatate (Benzonatate 100 Mg Capsule) 100 mg PO TID [facility] Stop: 06/20/21 13:59 Last Admin: 05/24/21 08:10 Dose: 100 mg Documented by: Docusate Sodium (Docusate Sodium 100 Mg Cap) 100 mg PO BID [facility] Stop: 06/19/21 20:59 Last Admin: 05/24/21 08:12 Dose: 100 mg Documented by: Enoxaparin Sodium (Enoxaparin Inj 40 Mg/0.4 Ml Syr) 40 mg SQ BID [facility] Stop: 06/19/21 20:59 Last Admin: 05/24/21 08:11 Dose: 40 mg Documented by: Fluticasone/Vilanterol (Fluticasone/Vilanterol 200/25mcg 14 Puffs/Inhaler) 1 puffs INH DAILY [facility] Stop: 06/20/21 08:59 Last Admin: 05/24/21 08:13 Dose: 1 puffs Documented by: Guaifenesin (Guaifenesin 600 Mg Tabcr) 1,200 mg PO Q12 [facility] Stop: 06/20/21 20:59 Last Admin: 05/24/21 08:11 Dose: 1,200 mg Documented by: Dexamethasone 6 mg/ Syringe 1.5 mls @ 1 mls/min IV DAILY [facility] Stop: 05/31/21 08:59 Last Admin: 05/24/21 08:10 Dose: 1 mls/min Documented by: Ceftriaxone Sodium 1,000 mg/ (Dextrose) 50 mls @ 100 mls/hr IV Q24H [facility]; Protocol Stop: 05/27/21 11:29 Last Infusion: 05/24/21 12:00 Dose: Infused Documented by: Azithromycin 500 mg/ Dextrose 255 mls @ 125 mls/hr IV Q24H [facility]; Protocol Stop: 05/27/21 11:59 Last Infusion: 05/24/21 12:00 Dose: 90 mls/hr Documented by: Remdesivir 100 mg/ Sodium (Chloride) 250 mls @ 250 mls/hr IV Q24H [facility]; Protocol Stop: 05/24/21 12:59 Last Infusion: 05/24/21 12:22 Dose: Infused Documented by: Promethazine HCl 12.5 mg/ (Sodium Chloride) 50.5 mls @ 202 mls/hr IV Q6H PRN PRN Reason: Nausea And Vomiting Stop: 06/21/21 09:54 Losartan Potassium (Losartan Potassium 25 Mg Tab) 25 mg PO DAILY [facility] Stop: 06/20/21 08:59 Last Admin: 05/24/21 08:12 Dose: 25 mg Documented by: Melatonin (Melatonin 3 Mg Tab) 3 mg PO HS PRN PRN Reason: Sleep Stop: 06/21/21 15:39 Last Admin: 05/22/21 23:05 Dose: 3 mg Documented by: Montelukast Sodium (Montelukast Sodium 10 Mg Tablet) 10 mg PO DAILY [facility] Stop: 06/20/21 08:59 Last Admin: 05/24/21 08:12 Dose: 10 mg Documented by: Pantoprazole Sodium (Pantoprazole 40 Mg Tab) 40 mg PO DAILYBB [facility] Stop: 06/20/21 06:29 Last Admin: 05/24/21 06:14 Dose: 40 mg Documented by: Polyethylene Glycol (Polyethylene (Miralax) 17 Gm Pack) 17 gm PO DAILY [facility] Stop: 06/19/21 10:59 Last Admin: 05/24/21 08:13 Dose: Not Given Documented by:
[2021-05-24] MEDS: BACLOFEN 10 MG TAB PO PRN (21:55)
[2021-05-24] MEDS: MELATONIN 3 MG TAB PO PRN (21:55)
[2021-05-25] MEDS ORDERED: oxyCODONE HCL IR 5 MG TAB (IMMEDIATE RELEASE) PO STA (03:17)
[2021-05-25 06:08] LABS: Basophils # (auto) 0.01 K/uL (0-0.2); Basophils % (auto) 0.1 %; Eosinophils # (auto) 0.13 K/uL (0-0.5); Eosinophils % (auto) 1.3 %; Hematocrit (blood only) 42.5 % (42-52); Hemoglobin 13.7 g/dL (14.0-18.0); Immature Granulocytes # (auto) 0.28 K/uL (0.00-0.02); Immature Granulocytes % (auto) 2.9 %; Lymphocytes # (auto) 1.95 K/uL (1.2-3.4); Mean Corpuscular Hemoglobin 28.1 pg (25-34); Mean Corpuscular Hgb Conc 32.2 g/dL (32-36); Mean Corpuscular Volume 87.3 fL (80-100); Mean Platelet Volume 10.4 fL (7.4-10.4); Monocytes # (auto) 1.42 K/uL (0.11-0.59); Monocytes % (auto) 14.5 %; Neutrophils # (auto) 5.98 K/uL (1.4-6.5); Neutrophils % (auto) 61.2 %; Platelet Count 577 K/uL (130-400); RDW Coefficient of Variation 13.7 % (11.5-14.5); RDW Standard Deviation 43.8 fL (36.4-46.3); Red Blood Count 4.87 M/uL (4.7-6.1); White Blood Count 9.77 K/uL (4.8-10.8)
[2021-05-25] MEDS: PANTOprazole 40 MG TAB PO SCH (06:14)
[2021-05-25 06:49] LABS: BUN Creatinine Ratio 31.5 (10-20); Calcium 8.5 mg/dl (8.5-10.1); Creatinine Clr Calc Pharmacy 89.3 ml/min; Est GFR (African American) 107.5 ml/min; Est GFR (Non-African American) 92.7 ml/min; Magnesium 2.3 mg/dl (1.8-2.4); Phosphorus 3.4 mg/dl (2.5-4.9); Potassium 4.6 mmol/L (3.5-5.1)
[2021-05-25] MEDS: LOSARTAN POTASSIUM 25 MG TAB PO SCH (08:50)
[2021-05-25] MEDS: dexAMETHasone 6 MG in SYRINGE 0 ML IV SCH (08:50)
[2021-05-25] MEDS: MONTELUKAST SODIUM 10 MG TABLET PO SCH (08:51)
[2021-05-25] MEDS: DOCUSATE SODIUM 100 MG CAP PO SCH (08:51)
[2021-05-25] MEDS: guaiFENesin 600 MG TABCR PO SCH (08:51)
[2021-05-25] MEDS: FLUTICASONE/VILANTEROL 200/25MCG 14 PUFFS/INHALER INH SCH (08:51)
[2021-05-25] MEDS: BENZONATATE 100 MG CAPSULE PO SCH ×2 (08:51→13:30)
[2021-05-25] MEDS: ATORVASTATIN 10 MG TAB PO SCH (08:51)
[2021-05-25] MEDS: POLYETHYLENE (MIRALAX) 17 GM PACK PO SCH (08:52)
[2021-05-25] MEDS: ENOXAPARIN INJ 40 MG/0.4 ML SYR SQ SCH (08:53)
--- NOTE | 2021-05-25 11:18 | Hospitalist Progress Note ---
Date of Service May 25, 2021 Assessment & Plan (1) Acute respiratory failure with hypoxia: (2) Pneumonia due to COVID-19 virus: Plan: #. Acute respiratory failure with hypoxia #. Covid pneumonia #. Likely superimposed bacterial pneumonia Vaccine status/month: Not vaccinated; S/S : Started May 13; Tested Positive: May 14 Admitting pro-Hira: 3.81 Admitting imaging: Admitting CTA chest negative for PE, suggestive of viral type pneumonitis and Covid pneumonia. In the ED, patient was hypoxic on room air at 76%. Clinically, patient looked ill, coughing at bedside, on 9 L oxygen by oxygen mask, in mild distress. Encourage every hour incentive spirometer/flutter valve/self proning as able Tessalon Perles and Mucinex for cough BNP: 460; Strict I's and O's; as needed IV Lasix; monitor BMP Monitor LFT daily when on remdesivir; sliding scale and glycemic pharmacy if needed when on steroid. c/w Dexamethasone 05/20 and Remdesivir 05/20. 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 Other chronic medical conditions: Asthma, moderate persistent; HTN; constipation Continue home inhalers/medication #. DVT prophylaxis: Subcutaneous Lovenox Full code Admission and Anticipated Discharge Date Admission Date: May 20, 2021 Subjective 05/22/2021 The patient was seen and examined in emergency room in the holding area He is very anxious and wants something to sleep He remains shortness of breath and requires up to 7 L of oxygen to maintain saturation 05/23/2021 The patient was seen and examined in telemetry unit and in the Covid room He remains very anxious and oxygen requirements remains at 8 L/min to maintain saturation Still has cough and moderate shortness of breath at rest 05/24/2021 The patient was seen and examined in telemetry unit and in the Covid room He has been feeling much better and oxygen requirements has come down to 4 L He will get another dose of Lasix today 05/25/2021 The patient was seen and examined in telemetry unit and in the Covid room He has been feeling much better and saturating normally on room air at rest Denies any significant symptoms except minimal cough He will be discharged home this afternoon Review of Systems Review of Systems: All systems reviewed and are unremarkable except as noted below Respiratory: No shortness of breath at rest Physical Exam Physical Exam: Lying in bed with moderate shortness of breath Constitutional: well developed, well nourished, + ill appearing and + obese Eyes: PERRL, conjunctivae normal, anicteric sclerae ENMT: external ear and nose normal, oropharynx normal Neck: trachea midline, no thyromegaly Respiratory: + respiratory distress Auscultation: + diminished lung sounds and + crackles (At the bases) Cardiovascular: Rate/Rhythm: regular rate and regular rhythm; not tachycardic Heart Sounds: normal S1 and normal S2; no murmur Extremities: no edema Gastrointestinal (Abdomen): Inspection/Auscultation: normal bowel sounds; abdomen not distended Percussion/Palpation: abdomen soft; abdomen nontender Musculoskeletal: no cyanosis or clubbing, extremities motor strength 5/5 Neurologic: CN's II-XI intact bilaterally and moves all extremities; no focal motor deficits Lymphatic: no cervical or axillary lymphadenopathy Results & Data Results & Data ([facility]) Vital Signs (Past 12 Hours) Vital Signs Temp Pulse Pulse Pulse Pulse Pulse Pulse 05/25/21 11:00 05/25/21 09:06 05/25/21 08:45 05/25/21 08:24 90 87 90 83 05/25/21 07:27 68 05/25/21 06:49 36.6 C 67 05/25/21 05:15 82 05/25/21 03:11 36.5 C 80 Pulse Resp Resp Resp Resp Resp Resp 05/25/21 11:00 05/25/21 09:06 20 05/25/21 08:45 18 05/25/21 08:24 87 22 22 22 22 20 05/25/21 07:27 05/25/21 06:49 18 05/25/21 05:15 05/25/21 03:11 18 BP Pulse Ox Pulse Ox Pulse Ox Pulse Ox Pulse Ox Pulse Ox 05/25/21 11:00 05/25/21 09:06 92 05/25/21 08:45 94 05/25/21 08:24 87 L 93 87 L 93 91 05/25/21 07:27 05/25/21 06:49 120/77 96 05/25/21 05:15 05/25/21 03:11 106/69 95 Pulse Ox 05/25/21 11:00 93 05/25/21 09:06 05/25/21 08:45 05/25/21 08:24 05/25/21 07:27 05/25/21 06:49 05/25/21 05:15 05/25/21 03:11 Laboratory Results Short CBC 05/25/21 Range/Units 05:49 WBC 9.77 (4.8-10.8) K/uL Hgb 13.7 L (14.0-18.0) g/dL Hct 42.5 (42-52) % Plt Count 577 H (130-400) K/uL BMP 05/25/21 05:49 Sodium 138 Potassium 4.6 D Chloride 106 Carbon Dioxide 27 BUN 27 H Creatinine 0.85 Glucose 109 H Calcium 8.5 Liver Function 05/25/21 Range/Units 05:49 AST 16 (15-37) U/L ALT 45 (12-78) Medications Administered Current Inpatient Medications Acetaminophen (Acetaminophen 325 Mg Tab) 650 mg PO Q6H PRN PRN Reason: Temp Stop: 06/19/21 11:59 Albuterol (Albut/Ipratrop 3mg/0.5mg Neb 3 Ml Vial) 3 ml NEB Q4R PRN PRN Reason: Shortness Of Breath Or Wheezing Stop: 06/19/21 18:59 Last Admin: 05/22/21 05:34 Dose: 3 ml Documented by: Atorvastatin Calcium (Atorvastatin 10 Mg Tab) 10 mg PO DAILY [facility] Stop: 06/20/21 08:59 Last Admin: 05/25/21 08:51 Dose: 10 mg Documented by: Baclofen (Baclofen 10 Mg Tab) 10 mg PO TID PRN PRN Reason: muscle spasm Stop: 06/19/21 13:59 Last Admin: 05/24/21 21:55 Dose: 10 mg Documented by: Benzonatate (Benzonatate 100 Mg Capsule) 100 mg PO TID [facility] Stop: 06/20/21 13:59 Last Admin: 05/25/21 08:51 Dose: 100 mg Documented by: Docusate Sodium (Docusate Sodium 100 Mg Cap) 100 mg PO BID [facility] Stop: 06/19/21 20:59 Last Admin: 05/25/21 08:51 Dose: 100 mg Documented by: Enoxaparin Sodium (Enoxaparin Inj 40 Mg/0.4 Ml Syr) 40 mg SQ BID [facility] Stop: 06/19/21 20:59 Last Admin: 05/25/21 08:53 Dose: 40 mg Documented by: Fluticasone/Vilanterol (Fluticasone/Vilanterol 200/25mcg 14 Puffs/Inhaler) 1 puffs INH DAILY [facility] Stop: 06/20/21 08:59 Last Admin: 05/25/21 08:51 Dose: 1 puffs Documented by: Guaifenesin (Guaifenesin 600 Mg Tabcr) 1,200 mg PO Q12 [facility] Stop: 06/20/21 20:59 Last Admin: 05/25/21 08:51 Dose: 1,200 mg Documented by: Dexamethasone 6 mg/ Syringe 1.5 mls @ 1 mls/min IV DAILY [facility] Stop: 05/31/21 08:59 Last Admin: 05/25/21 08:50 Dose: 1 mls/min Documented by: Ceftriaxone Sodium 1,000 mg/ (Dextrose) 50 mls @ 100 mls/hr IV Q24H [facility]; Protocol Stop: 05/27/21 11:29 Last Infusion: 05/24/21 12:00 Dose: Infused Documented by: Azithromycin 500 mg/ Dextrose 255 mls @ 125 mls/hr IV Q24H [facility]; Protocol Stop: 05/27/21 11:59 Last Infusion: 05/24/21 13:45 Dose: Infused Documented by: Promethazine HCl 12.5 mg/ (Sodium Chloride) 50.5 mls @ 202 mls/hr IV Q6H PRN PRN Reason: Nausea And Vomiting Stop: 06/21/21 09:54 Losartan Potassium (Losartan Potassium 25 Mg Tab) 25 mg PO DAILY [facility] Stop: 06/20/21 08:59 Last Admin: 05/25/21 08:50 Dose: 25 mg Documented by: Melatonin (Melatonin 3 Mg Tab) 3 mg PO HS PRN PRN Reason: Sleep Stop: 06/21/21 15:39 Last Admin: 05/24/21 21:55 Dose: 3 mg Documented by: Montelukast Sodium (Montelukast Sodium 10 Mg Tablet) 10 mg PO DAILY [facility] Stop: 06/20/21 08:59 Last Admin: 05/25/21 08:51 Dose: 10 mg Documented by: Pantoprazole Sodium (Pantoprazole 40 Mg Tab) 40 mg PO DAILYBB [facility] Stop: 06/20/21 06:29 Last Admin: 05/25/21 06:14 Dose: 40 mg Documented by: Polyethylene Glycol (Polyethylene (Miralax) 17 Gm Pack) 17 gm PO DAILY [facility] Stop: 06/19/21 10:59 Last Admin: 05/25/21 08:52 Dose: 17 gm Documented by:
[2021-05-25] MEDS: cefTRIAXone SODIUM 1,000 MG in DEXTROSE 5% 50 ML IV SCH (11:40)
[2021-05-25] MEDS: AZITHROMYCIN 500 MG in DEXTROSE 5% 250 ML IV SCH (11:40)
--- NOTE | 2021-05-26 07:48 | Discharge Summary ---
Date of Service May 26, 2021 Admission HPI Per Admitting Provider 61-year-old male with PMH moderate persistent asthma, migraines, HTN, other problems listed below who presents the ED for evaluation of shortness of breath. As an outpatient, patient tested positive for COVID-19 on 05/14. Patient was seen in PCPs office same day and prior to positive test, was started on Augmentin. Patient reports progressive worsening shortness of breath, generalized body aches, fever. Was seen in ED on 05/16 and had an unremarkable work-up and was discharged home. Patient did not receive COVID-19 directed therapies during ED visit. Patient presents back today with ongoing symptoms. Reports he has had a very poor appetite with nausea and vomiting. Cough productive for yellow/white sputum at times. Denies chest pain. No lightheadedness, dizziness, diaphoresis, syncopal events. Denies abdominal pain. No diarrhea but reports constipation. Reports taking Tylenol without relief of symptoms. No urinary symptoms. In the ED, patient hypoxic on room air at 76%, currently saturating well on a 3 L OxiMax. Patient is febrile at 38.7. Labs show D-dimer 10,000, CRP 21.7, procalcitonin 3.81. CTA chest negative for pulmonary embolism however showing signs of multifocal pneumonia consistent with COVID-19 pneumonia. Patient was given IV Tylenol, IV dexamethasone 6 mg, IV diphenhydramine, IV Reglan, IV Zofran, IVF. Admission Exam Per Admitting Provider Vitals signs as noted above General Appearance:Moderately built and nourished, mild distress Head: normocephalic, Atraumatic Eyes: normal inspection, EOMI Neck: supple, Trachea midline Respiratory/Chest: Decreased breath sounds, B/L Crackles, No accessory muscle use Cardiovascular: S1, S2, No murmur Abdomen/GI:Soft, Non tender, Bowel sounds present Extremities/Musculoskeletal:normal inspection, no edema Neurologic/Psych:AAOX3, grossly no focal neurological deficits Skin: normal color, warm Principal Diagnosis Acute respiratory failure with hypoxia, Covid 19 pneumonia with possible superimposed bacterial infection Discharge Exam Lying in bed with moderate shortness of breath Constitutional well developed, well nourished, + ill appearing and + obese Eyes PERRL, conjunctivae normal, anicteric sclerae ENMT external ear and nose normal, oropharynx normal Neck trachea midline, no thyromegaly Respiratory + respiratory distress Auscultation: + diminished lung sounds and + crackles (At the bases) Cardiovascular Rate/Rhythm: regular rate and regular rhythm; not tachycardic Heart Sounds: normal S1 and normal S2; no murmur Extremities: no edema Gastrointestinal (Abdomen) Inspection/Auscultation: normal bowel sounds; abdomen not distended Percussion/Palpation: abdomen soft; abdomen nontender Musculoskeletal no cyanosis or clubbing, extremities motor strength 5/5 Neurologic CN's II-XI intact bilaterally and moves all extremities; no focal motor deficits Lymphatic no cervical or axillary lymphadenopathy Discharge Data Allergies Allergy/AdvReac Type Severity Reaction Status Date / Time sumatriptan Allergy Mild RASH Verified 05/16/21 18:08 codeine AdvReac Mild SICK IN Verified 05/16/21 18:08 STOMACH Consultations 05/20/21 09:38 ED Decision to Admit Stat Ordered Studies 05/20/21 09:27 CT angio chest PE protocol Stat Hospital Course (1) Acute respiratory failure with hypoxia: (2) Pneumonia due to COVID-19 virus: #. Acute respiratory failure with hypoxia #. Covid pneumonia #. Likely superimposed bacterial pneumonia Vaccine status/month: Not vaccinated; S/S : Started May 13; Tested Positive: May 14 Admitting pro-Hira: 3.81 Admitting imaging: Admitting CTA chest negative for PE, suggestive of viral type pneumonitis and Covid pneumonia. In the ED, patient was hypoxic on room air at 76%. Clinically, patient looked ill, coughing at bedside, on 9 L oxygen by oxygen mask, in mild distress. Encourage every hour incentive spirometer/flutter valve/self proning as able Tessalon Perles and Mucinex for cough BNP: 460; Strict I's and O's; as needed IV Lasix; monitor BMP Monitor LFT daily when on remdesivir; sliding scale and glycemic pharmacy if needed when on steroid. c/w Dexamethasone 05/20 and Remdesivir 05/20. 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 Other chronic medical conditions: Asthma, moderate persistent; HTN; constipation Continue home inhalers/medication #. DVT prophylaxis: Subcutaneous Lovenox Full code Total Time Total Time Spent Total Time Spent (In Minutes): 35 minutes Discharge Plan Discharge Items Patient Disposition: Home - Self-Care Reason For Visit: COVID PNEUMONIA Discharge Diagnosis: Acute respiratory failure with hypoxia, Covid 19 pneumonia with possible superimposed bacterial infection Condition on Discharge: Good Activity: Resume your previous activity Non-emergency contact: Primary Care Provider Call non-emergency contact if: you have any medication questions and your symptoms worsen Follow-up/Referrals: Bebo Landeros DO [Primary Care Provider] - (Date & Time 05/28/2021 11:20 AM Provider Bebo Landeros DO Department Family Practice [facility] PLEASE NOTE THAT THIS IS A TELEHEALTH VIDEO APPOINTMENT. PLEASE FOLLOW THE INSTRUCTIONS PROVIDED IN YOUR EMAIL. IF YOU HAVE ANY QUESTIONS REGARDING THIS APPOINTMENT, PLEASE CALL ) Diet: Regular Addtl Attending Provider Instructions: Please finish the course of antibiotic and dexamethasone as advised Please maintain isolation for next 5 days as per the guidelines below:Home Isolation COVID-19 Instructions Can take OTC cough medicines The following information about Home Isolation is from the CDC Website: https://www.cdc.gov/coronavirus/2019-ncov/hcp/ioeihwgc-foaclmw-jvifbe.html Stay home except to get medical care People who are mildly ill with COVID-19 are able to isolate at home during their illness. You should restrict activities outside your home, except for getting medical care. Do not go to work, school, or public areas. Avoid using public transportation, ride-sharing, or taxis. Separate yourself from other people and animals in your home People: As much as possible, you should stay in a specific room and away from other people in your home. Also, you should use a separate bathroom, if available. Animals: You should restrict contact with pets and other animals while you are sick with COVID-19, just like you would around other people. Although there have not been reports of pets or other animals becoming sick with COVID-19, it is still recommended that people sick with COVID-19 limit contact with animals until more information is known about the virus. When possible, have another member of your household care for your animals while you are sick. If you are sick with COVID-19, avoid contact with your pet, including petting, snuggling, being kissed or licked, and sharing food. If you must care for your pet or be around animals while you are sick, wash your hands before and after you interact with pets and wear a face mask. Call ahead before visiting your doctor If you have a medical appointment, call the healthcare provider and tell them that you have or may have COVID-19. This will help the healthcare providers office take steps to keep other people from getting infected or exposed. Wear a face mask You should wear a face mask when you are around other people (e.g., sharing a room or vehicle) or pets and before you enter a healthcare providers office. If you are not able to wear a face mask (for example, because it causes trouble breathing), then people who live with you should not stay in the same room with you, or they should wear a face mask if they enter your room. Cover your coughs and sneezes Cover your mouth and nose with a tissue when you cough or sneeze. Throw used tissues in a lined trash can. Immediately wash your hands with soap and water fo r at least 20 seconds or, if soap and water are not available, clean your hands with an alcohol-based hand police clerk that contains at least 60% alcohol. Clean your hands often Wash your hands often with soap and water for at least 20 seconds, especially after blowing your nose, coughing, or sneezing; going to the bathroom; and before eating or preparing food. If soap and water are not readily available, use an alcohol-based hand police clerk with at least 60% alcohol, covering all surfaces of your hands and rubbing them together until they feel dry. Soap and water are the best option if hands are visibly dirty. Avoid touching your eyes, nose, and mouth with unwashed hands. Avoid sharing personal household items You should not share dishes, drinking glasses, cups, eating utensils, towels, or bedding with other people or pets in your home. After using these items, they should be washed thoroughly with soap and water. Clean all high-touch surfaces everyday High touch surfaces include counters, tabletops, doorknobs, bathroom fixtures, toilets, phones, keyboards, tablets, and bedside tables. Also, clean any bonnie faces that may have blood, stool, or body fluids on them. Use a household cleaning spray or wipe, according to the label instructions. Labels contain instructions for safe and effective use of the cleaning product including precautions you should take when applying the product, such as wearing gloves and making sure you have good ventilation during use of the product. Monitor your symptoms Seek prompt medical attention if your illness is worsening (e.g., difficulty breathing).Beforeseeking care, call your healthcare provider and tell them th at you have, or are being evaluated for, COVID-19. Put on a face mask before you enter the facility. These steps will help the healthcare providers office to keep other people in the office or waiting room from getting infected or exposed. Ask your healthcare provider to call the local or state health department. Persons who are placed under active monitoring or facilitated self- monitoring should follow instructions provided by their local health department or occupational health professionals, as appropriate. When working with your local health department check their available hours. If you have a medical emergency and need to call 911, notify the dispatch personnel that you have, or are being evaluated for COVID-19. If possible, put on a face mask before emergency medical services arrive. Discontinuing home isolation Patients with confirmed COVID-19 should remain under home isolation precautions until the risk of secondary transmission to others is thought to be low. The decision to discontinue home isolation precautions should be made on a [id number] basis, in consultation with healthcare providers and state and local health departments. Pending Studies at Discharge: No Stand-Alone Forms: [employer], Smoking Cessation Medications and DC Order Prescriptions: New dexamethasone 6 mg tablet 6 mg PO DAILY Qty: 4 RF: 0 azithromycin 500 mg tablet 500 mg PO DAILY 2 Days Qty: 2 RF: 0 cefuroxime axetil 500 mg tablet 500 mg PO BID Qty: 4 RF: 0 Continued atorvastatin 10 mg tablet 10 mg PO DAILY RF: 0 omeprazole 40 mg capsule,delayed release(DR/EC) 40 mg PO DAILYBB RF: 0 losartan 25 mg tablet 25 mg PO DAILY RF: 0 tadalafil 5 mg tablet 5 mg PO DAILY PRN (Reason: Erectile Dysfunction) RF: 0 montelukast 10 mg tablet 10 mg PO DAILY RF: 0 albuterol sulfate 90 mcg/actuation HFA aerosol inhaler 2 puff INHALATION QID PRN (Reason: Shortness Of Breath Or Wheezing) RF: 0 cholecalciferol (vitamin D3) [Vitamin D3] 50 mcg (2,000 unit) capsule 2,000 unit PO DAILY RF: 0 Breo Ellipta 200-25 mcg/dose blister with device 1 ea INHALATION UD RF: 0 Dupixent Syringe 300 mg/2 mL syringe 300 mg SUBCUT UD RF: 0 ondansetron HCl 4 mg tablet 4 mg PO DAILY PRN (Reason: Nausea) RF: 0 Discontinued amoxicillin-pot clavulanate 875-125 mg tablet 1 tab PO BID RF: 0 Discharge Orders: Discharge Order (Routine); Ordered 05/25/21 Ordered By: Michael Dsouza Admission Data Admit Date/Time: 05/20/21 10:00 Attending Provider: Michael Dsouza Admit Provider: Tommy Wheatley Primary Care Provider: Bebo Landeros Other Providers: Tommy Wheatley ; Karan Ortega Other Interventions: Discharge Summary Assessment (RN) Last Done: 05/25/21 15:29
== END 2021-05-25 16:45 | disposition home or self-care (01) | DRG 177 ==
LOC: ED 08:01 → SUATTDRO 10:00 → EDINP 10:00 → 2S 05-23 05:45

== ENCOUNTER 2023-06-06 21:30 | Observation (INO) ==
[2023-06-06] MEDS ORDERED: fentaNYL citrate PF 100 MCG/2 ML VIAL IV STA (21:53)
--- NOTE | 2023-06-06 21:54 | Emergency Department Note ---
History of Present Illness General Chief complaint: Head Pain Stated complaint: HEAD PAIN, CANNOT MOVE HEAD TO LEFT Time Seen by Provider: 06/06/23 21:37 History of Present Illness Maximum Pain Intensity: 9 This is a 63-year-old male that presents to the emergency department via private vehicle with complaints of "head pain, cannot move head to the left". The patient notes that yesterday he awoke with pain to the left side of his head and neck. This was in the morning time. He notes pain is worse when he attempts to turn his head to the left or touches the left side of his neck. He denies any known trauma or injury. He denies any chest pain, shortness of breath, fevers, chills, nausea, vomiting, numbness or tingling. Patient has tried Tylenol without any relief. The patient has never had this before. Home Medications Medication Instructions Recorded Confirmed Type albuterol sulfate 2.5 mg/3 mL 2.5 mg continuous nebulization Q4H 06/07/23 06/07/23 History (0.083 %) solution for nebulization PRN Shortness Of Breath Or Wheezing albuterol sulfate 90 mcg/actuation 2 puff inhalation Q4H PRN 06/07/23 06/07/23 History aerosol inhaler Shortness Of Breath Or Wheezing atorvastatin 10 mg tablet 10 mg PO DAILY 06/07/23 06/07/23 History diclofenac sodium 1 % topical gel 2 g topical QID 06/07/23 06/07/23 History docusate sodium 100 mg capsule 100 mg PO BID 06/07/23 06/07/23 History dupilumab 300 mg/2 mL subcutaneous 300 mg subcut USEASDIRECTD 06/07/23 06/07/23 History pen injector (Dupixent) escitalopram oxalate 5 mg tablet 5 mg PO DAILY 06/07/23 06/07/23 History fluticasone fur. 200 mcg-umeclid 1 inh inhalation DAILY 06/07/23 06/07/23 History 62.5 mcg-vilant 25 mcg inhalat.powder (Trelegy Ellipta) levocetirizine 5 mg tablet 5 mg PO HS 06/07/23 06/07/23 History losartan 25 mg tablet 25 mg PO DAILY 06/07/23 06/07/23 History meclizine 25 mg tablet 25 mg PO TID vertigo 06/07/23 06/07/23 History meloxicam 15 mg tablet 15 mg PO DAILY 06/07/23 06/07/23 History montelukast 10 mg tablet 10 mg PO HS 06/07/23 06/07/23 History omeprazole 40 mg capsule,delayed 40 mg PO DAILY 06/07/23 06/07/23 History release Allergies Allergy/AdvReac Type Severity Reaction Status Date / Time sumatriptan Allergy Mild RASH Verified 05/16/21 18:08 codeine AdvReac Mild SICK IN Verified 05/16/21 18:08 STOMACH Past Med/Surg History Medical History HTN (hypertension) Asthma, moderate persistent Erectile dysfunction Hyperprolactinemia Kidney stones Migraine Hyperlipidemia Surgical History History of open reduction and internal fixation (ORIF) procedure left shoulder/elbow---hardware in place History of repair of right rotator cuff History of cystoscopy Hx of left inguinal hernia repair History of colonoscopy History of wisdom tooth extraction Family History Father Family hx of colon cancer Other No family history of adverse response to anesthesia Social History Smoking Status: Never smoker Second Hand Exposure: No; Do You Dip or Chew Tobacco: No; Hx Alcohol Use: No Hx Substance Use: No Preferred Language: Turkmen Communication Ability: Effective Coffee Break Attendant Required: No Beliefs That Will Affect Care: None marital status: Current Living Situation: Spouse and Family Current Living Situation Comment: LIVES WITH AND SON Feels Safe at Home: Yes Assistive Devices: Oxygen - Continuous Review of Systems A total of 10 systems reviewed and were otherwise negative Physical Exam Vital Signs Vital Signs - 24 hr 06/06/23 21:32 06/06/23 21:44 06/06/23 21:44 Temperature 36.6 C Temperature Source Temporal Artery Scan Pulse Rate 96 H 95 H 97 H Pulse Rate [Apical] Pulse Rate from SpO2 Sensor 97 H Respiratory Rate 18 25 H Respiratory Depth Normal Blood Pressure 159/107 H Blood Pressure [Right Arm] Blood Pressure Mean 124 Blood Pressure Mean [Right Arm] Blood Pressure Position [Right Arm] Pulse Oximetry 100 99 Oxygen Delivery Method Room Air Sepsis Recent Fever Within 48 Hours No Sepsis New/Unexplained Change in Mental Status No Sepsis Action Taken by Nursing No Action Required 06/06/23 21:48 06/06/23 21:50 06/06/23 22:00 Temperature Temperature Source Pulse Rate 107 H Pulse Rate [Apical] 96 H Pulse Rate from SpO2 Sensor 106 H Respiratory Rate 26 H 20 Respiratory Depth Normal Blood Pressure Blood Pressure [Right Arm] 195/125 H Blood Pressure Mean Blood Pressure Mean [Right Arm] 148 Blood Pressure Position [Right Arm] Semi-fowlers Pulse Oximetry 98 98 Oxygen Delivery Method Room Air Sepsis Recent Fever Within 48 Hours Sepsis New/Unexplained Change in Mental Status Sepsis Action Taken by Nursing 06/06/23 22:07 06/06/23 22:08 06/06/23 22:08 Temperature Temperature Source Pulse Rate 103 H Pulse Rate [Apical] 104 H Pulse Rate from SpO2 Sensor 102 H Respiratory Rate 22 Respiratory Depth Blood Pressure 149/110 H Blood Pressure [Right Arm] 149/110 H Blood Pressure Mean 123 Blood Pressure Mean [Right Arm] 123 Blood Pressure Position [Right Arm] Pulse Oximetry 96 95 Oxygen Delivery Method Room Air Sepsis Recent Fever Within 48 Hours Sepsis New/Unexplained Change in Mental Status Sepsis Action Taken by Nursing 06/06/23 22:10 06/06/23 22:20 06/06/23 22:30 Temperature Temperature Source Pulse Rate 100 H 90 94 H Pulse Rate [Apical] Pulse Rate from SpO2 Sensor 101 H 92 H 94 H Respiratory Rate 25 H 18 14 Respiratory Depth Blood Pressure Blood Pressure [Right Arm] Blood Pressure Mean Blood Pressure Mean [Right Arm] Blood Pressure Position [Right Arm] Pulse Oximetry 94 96 96 Oxygen Delivery Method Sepsis Recent Fever Within 48 Hours Sepsis New/Unexplained Change in Mental Status Sepsis Action Taken by Nursing 06/06/23 22:40 06/06/23 22:50 06/06/23 23:24 Temperature Temperature Source Pulse Rate 101 H 98 H Pulse Rate [Apical] Pulse Rate from SpO2 Sensor 100 H 99 H 97 H Respiratory Rate 19 13 Respiratory Depth Blood Pressure 134/92 Blood Pressure [Right Arm] Blood Pressure Mean 106 Blood Pressure Mean [Right Arm] Blood Pressure Position [Right Arm] Pulse Oximetry 95 97 97 Oxygen Delivery Method Sepsis Recent Fever Within 48 Hours Sepsis New/Unexplained Change in Mental Status Sepsis Action Taken by Nursing 06/06/23 23:30 06/06/23 23:31 06/06/23 23:40 Temperature Temperature Source Pulse Rate Pulse Rate [Apical] 90 Pulse Rate from SpO2 Sensor 91 H 88 Respiratory Rate 22 Respiratory Depth Normal Blood Pressure Blood Pressure [Right Arm] 134/90 Blood Pressure Mean Blood Pressure Mean [Right Arm] 104 Blood Pressure Position [Right Arm] Pulse Oximetry 95 98 95 Oxygen Delivery Method Room Air Sepsis Recent Fever Within 48 Hours Sepsis New/Unexplained Change in Mental Status Sepsis Action Taken by Nursing 06/06/23 23:50 06/07/23 00:00 06/07/23 00:10 Temperature Temperature Source Pulse Rate Pulse Rate [Apical] Pulse Rate from SpO2 Sensor 88 85 101 H Respiratory Rate Respiratory Depth Blood Pressure Blood Pressure [Right Arm] Blood Pressure Mean Blood Pressure Mean [Right Arm] Blood Pressure Position [Right Arm] Pulse Oximetry 96 96 96 Oxygen Delivery Method Sepsis Recent Fever Within 48 Hours Sepsis New/Unexplained Change in Mental Status Sepsis Action Taken by Nursing 06/07/23 00:20 06/07/23 00:30 06/07/23 00:40 Temperature Temperature Source Pulse Rate Pulse Rate [Apical] Pulse Rate from SpO2 Sensor 89 93 H 92 H Respiratory Rate Respiratory Depth Blood Pressure Blood Pressure [Right Arm] Blood Pressure Mean Blood Pressure Mean [Right Arm] Blood Pressure Position [Right Arm] Pulse Oximetry 95 98 97 Oxygen Delivery Method Sepsis Recent Fever Within 48 Hours Sepsis New/Unexplained Change in Mental Status Sepsis Action Taken by Nursing 06/07/23 00:50 06/07/23 01:00 06/07/23 01:10 Temperature Temperature Source Pulse Rate Pulse Rate [Apical] Pulse Rate from SpO2 Sensor 85 96 H 95 H Respiratory Rate Respiratory Depth Blood Pressure Blood Pressure [Right Arm] Blood Pressure Mean Blood Pressure Mean [Right Arm] Blood Pressure Position [Right Arm] Pulse Oximetry 96 97 99 Oxygen Delivery Method Sepsis Recent Fever Within 48 Hours Sepsis New/Unexplained Change in Mental Status Sepsis Action Taken by Nursing 06/07/23 01:20 06/07/23 01:30 06/07/23 01:40 Temperature Temperature Source Pulse Rate Pulse Rate [Apical] Pulse Rate from SpO2 Sensor 86 81 90 Respiratory Rate Respiratory Depth Blood Pressure 144/74 H Blood Pressure [Right Arm] Blood Pressure Mean 97 Blood Pressure Mean [Right Arm] Blood Pressure Position [Right Arm] Pulse Oximetry 97 96 97 Oxygen Delivery Method Sepsis Recent Fever Within 48 Hours Sepsis New/Unexplained Change in Mental Status Sepsis Action Taken by Nursing 06/07/23 01:50 06/07/23 02:00 06/07/23 02:10 Temperature Temperature Source Pulse Rate Pulse Rate [Apical] Pulse Rate from SpO2 Sensor 83 85 87 Respiratory Rate Respiratory Depth Blood Pressure Blood Pressure [Right Arm] Blood Pressure Mean Blood Pressure Mean [Right Arm] Blood Pressure Position [Right Arm] Pulse Oximetry 97 95 96 Oxygen Delivery Method Sepsis Recent Fever Within 48 Hours Sepsis New/Unexplained Change in Mental Status Sepsis Action Taken by Nursing 06/07/23 02:20 06/07/23 02:30 06/07/23 02:40 Temperature Temperature Source Pulse Rate Pulse Rate [Apical] Pulse Rate from SpO2 Sensor 86 97 H 95 H Respiratory Rate Respiratory Depth Blood Pressure Blood Pressure [Right Arm] Blood Pressure Mean Blood Pressure Mean [Right Arm] Blood Pressure Position [Right Arm] Pulse Oximetry 96 93 95 Oxygen Delivery Method Sepsis Recent Fever Within 48 Hours Sepsis New/Unexplained Change in Mental Status Sepsis Action Taken by Nursing 06/07/23 02:49 06/07/23 02:50 06/07/23 04:00 Temperature Temperature Source Pulse Rate Pulse Rate [Apical] 84 Pulse Rate from SpO2 Sensor 93 H 88 Respiratory Rate 16 Respiratory Depth Blood Pressure 145/100 H Blood Pressure [Right Arm] 141/98 H Blood Pressure Mean 115 Blood Pressure Mean [Right Arm] 112 Blood Pressure Position [Right Arm] Pulse Oximetry 98 96 94 Oxygen Delivery Method Room Air Sepsis Recent Fever Within 48 Hours Sepsis New/Unexplained Change in Mental Status Sepsis Action Taken by Nursing 06/07/23 04:23 06/07/23 05:00 Temperature Temperature Source Pulse Rate 91 H Pulse Rate [Apical] 87 Pulse Rate from SpO2 Sensor Respiratory Rate 16 Respiratory Depth Blood Pressure Blood Pressure [Right Arm] 144/91 H Blood Pressure Mean Blood Pressure Mean [Right Arm] 108 Blood Pressure Position [Right Arm] Pulse Oximetry 94 Oxygen Delivery Method Room Air Sepsis Recent Fever Within 48 Hours Sepsis New/Unexplained Change in Mental Status Sepsis Action Taken by Nursing VITAL SIGNS - Vital signs and nursing notes were reviewed. Hypertensive, mildly tachycardic, mildly tachypneic. GENERAL - 63-year-old male appearing his stated age who appears to be in pain. Communicates well with provider and answers questions appropriately. SKIN - Without rashes. HEAD - NC/AT. EYES - PERRL with EOMI bilaterally. Sclera anicteric. EARS - No deformities of external structures noted on gross examination bilaterally. NOSE - Midline and without cyanosis. No epistaxis or purulent drainage noted. MOUTH/OROPHARYNX - Without perioral cyanosis. NECK - Neck with FROM. No lymphadenopathy noted. No nuchal rigidity. There is tenderness of the left side of the neck throughout the left paraspinous musculature and left lateral neck musculature extending from the left lateral occipital region to the left shoulder region. LUNGS - Chest wall symmetric without accessory muscle use, intercostals retractions, or central cyanosis. Normal vesicular breath sounds CTA B/L. No wheezes, rales, or rhonchi appreciated. CARDIAC - RRR with S1/S2. No murmur, rubs, or gallops appreciated. EXTREMITIES - No clubbing or peripheral cyanosis. +5/5 strength noted in UE/LE bilaterally. Upper extremities are symmetrically perfused as were the lower extremities. NEUROLOGIC - Cranial nerves II through XII grossly intact. PSYCH - A&Ox3 and cooperates fully with examiner. Pt is very pleasant and interacts well with examiner. Course Administered Medications Miscellaneous (Remove Lidoderm Patch) 1 each N/A DAILY@2100 HÉCTOR Stop: 07/07/23 20:59 Last Admin: 06/07/23 02:37 Dose: Not Given Documented By: Discontinued Medications Acetaminophen (Acetaminophen 500 Mg Tab) 1,000 mg PO NOW STA Stop: 06/06/23 23:48 Last Admin: 06/07/23 02:44 Dose: Not Given Documented By: JOLANTA Dexamethasone Sodium Phosphate (DexamethasonePf 10 Mg/Ml Vial) 10 mg IV NOW ONE Stop: 06/06/23 23:48 Last Admin: 06/07/23 00:01 Dose: 10 mg Documented By: Diazepam (Diazepam 5 Mg/Ml 10ml Vial) 2 mg IV NOW STA Stop: 06/06/23 23:48 Last Admin: 06/07/23 00:01 Dose: 2 mg Documented By: Diphenhydramine HCl (Diphenhydramine 50 Mg/Ml Vial) 25 mg IV NOW STA Stop: 06/06/23 23:06 Last Admin: 06/06/23 23:19 Dose: 25 mg Documented By: Fentanyl Citrate (Fentanyl Citrate Pf 100 Mcg/2 Ml Vial) 50 mcg IV NOW STA Stop: 06/06/23 21:54 Last Admin: 06/06/23 21:57 Dose: 50 mcg Documented By: SUSIE Prochlorperazine (Compazine) 1 mls @ 1 mls/min IV ONE ONE Stop: 06/06/23 23:06 Last Admin: 06/06/23 23:20 Dose: 1 mls/min Documented By: BRUNO Ioversol (Optiray 320 125ml) 125 ml IV ONCE ONE Stop: 06/06/23 23:05 Last Admin: 06/06/23 23:05 Dose: 117 ml Documented By: OSMANY Ketorolac Tromethamine (Ketorolac 30 Mg/Ml Vial) 30 mg IV NOW STA Stop: 06/06/23 23:48 Last Admin: 06/07/23 00:01 Dose: 30 mg Documented By: BRUNO Lidocaine (Lidocaine 5% 1 Patch) 1 patch TD NOW STA Stop: 06/06/23 23:48 Last Admin: 06/07/23 00:01 Dose: 1 patch Documented By: BRUNO Ondansetron HCl (Ondansetron Inj 2 Mg/Ml 2 Ml Vial) 4 mg IV NOW STA Stop: 06/06/23 21:58 Last Admin: 06/06/23 22:05 Dose: 4 mg Documented By: SUSIE Medical Decision Making Laboratory Data 06/06/23 22:00 06/06/23 22:00 Lab Results 06/06/23 Range/Units 22:00 WBC 10.93 H (4.8-10.8) K/ul RBC 5.41 (4.70-6.10) M/uL Hgb 15.5 (14.0-18.0) g/dl Hct 47.9 (42.0-52.0) % MCV 88.5 (80.0-100.0) fL MCH 28.7 (25.0-34.0) pg MCHC 32.4 (32.0-36.0) g/dL RDW Std Deviation 44.5 (36.4-46.3) fL RDW Coeff of Tino 13.8 (11.5-14.5) % Plt Count 292 (130-400) K/uL MPV 10.4 (9.4-12.4) fL Immature Gran % (Auto) 0.6 % Neut % (Auto) 58.5 % Lymph % (Auto) 27.4 % [place] % (Auto) 11.1 % Eos % (Auto) 1.6 % Baso % (Auto) 0.8 % Neut # (Auto) 6.40 (1.40-6.50) K/uL Lymph # (Auto) 2.99 (1.20-3.40) K/uL [place] # (Auto) 1.21 H (0.11-0.59) K/uL Eos # (Auto) 0.17 (0.00-0.50) K/uL Baso # (Auto) 0.09 (0.00-0.20) K/uL Immature Gran # (Auto) 0.07 (0.01-0.20) K/uL PT 10.3 (9.0-12.0) Seconds INR 0.9 (0.9-1.1) APTT 26 (21-31) Seconds PTT Ratio 0.9 Sodium 139 (136-145) mmol/L Potassium 4.1 (3.5-5.1) mmol/L Chloride 104 (98-107) mmol/L Carbon Dioxide 29 (21-32) mmol/L Anion Gap 6 (3-11) BUN 15 (6-23) mg/dl Creatinine 1.14 (0.6-1.4) mg/dl Est Cr Clr Drug Dosing 67.3 ml/min Est GFR ( Amer) 77.8 ml/min Est GFR (Non-Af Amer) 67.1 ml/min BUN/Creatinine Ratio 13.2 (10-20) Glucose 79 (70-99(Fasting)) mg/dl Calcium 9.0 (8.6-10.3) mg/dl Magnesium 1.7 (1.7-2.4) mg/dl Total Bilirubin 0.3 (0.2-1.0) mg/dl AST 15 (13-39) U/L ALT 23 (7-52) U/L Alkaline Phosphatase 68 (34-104) U/L Troponin I High Sens 3.1 (0-20) pg/ml Total Protein 7.5 (6.0-8.3) gm/dl Albumin 4.0 (3.4-5.0) gm/dl Globulin 3.5 (2.5-4.0) gm/dl Albumin/Globulin Ratio 1.1 (0.9-2) Imaging Data My Impression: Chest x-ray: Per my interpretation no acute process Radiologist's Impression: Head CTA 06/06/23 21:49 Exam(s): CTA HEAD W/WO Contrast IV Amt: 117 ML OPTIRA 320 EXAM: CT Angiography Head Without and With Intravenous Contrast CLINICAL HISTORY: Reason for exam: L sided Neck and head pain. TECHNIQUE: Axial computed tomographic angiography images of the head without and with intravenous contrast. CTDI is 36.67 mGy and DLP is 1166.58 mGy-cm. Automated exposure control was utilized for the study. A dose lowering technique was utilized adhering to the principles of ALARA. MIP reconstructed images were created and reviewed. CONTRAST: Patient received 117 ML OPTIRA 320 of IV contrast COMPARISON: No relevant prior studies available. FINDINGS: VASCULATURE: Right internal carotid artery: No acute findings. Intracranial segment is patent with no significant stenosis. No aneurysm. Right anterior cerebral artery: Unremarkable. No occlusion or significant stenosis. No aneurysm. Right middle cerebral artery: Unremarkable. No occlusion or significant stenosis. No aneurysm. Right posterior cerebral artery: Unremarkable. No occlusion or significant stenosis. No aneurysm. Right vertebral artery: Unremarkable as visualized. Left internal carotid artery: Mild calcified plaque of the cavernous portion of the distal intracranial left internal carotid artery. Intracranial segment is patent with no significant stenosis. No aneurysm. Left anterior cerebral artery: Unremarkable. No occlusion or significant stenosis. No aneurysm. Left middle cerebral artery: Unremarkable. No occlusion or significant stenosis. No aneurysm. Left posterior cerebral artery: Unremarkable. No occlusion or significant stenosis. No aneurysm. Left vertebral artery: Unremarkable as visualized. Basilar artery: Unremarkable. No occlusion or significant stenosis. No aneurysm. HEAD: Brain: No acute findings. No hemorrhage. No edema. Normal enhancement. Ventricles: Unremarkable. No ventriculomegaly. Bones/joints: No acute fracture. Soft tissues: Unremarkable. Sinuses: Unremarkable as visualized. No acute sinusitis. Mastoid air cells: Unremarkable as visualized. No mastoid effusion. IMPRESSION: 1. No large vessel intracranial occlusion. 2. No intracranial aneurysm. Electronically signed by: Marty Walsh M.D. 06/06/23 23:39 PM Neck CTA 06/06/23 21:49 Exam(s): CTA NECK With Contrast IV Amt: 117 ML OPTIRAY 320 EXAM: CT Angiography Neck With Intravenous Contrast CLINICAL HISTORY: Reason for exam: L sided Neck and head pain. TECHNIQUE: Routine carotid CT angiography protocol was performed with intravenous contrast. NASCET criteria using the distal ICAs for comparison were used for evaluation of stenoses. CTDI is 36.67 mGy and DLP is 1166.58 mGy-cm. Automated exposure control was utilized for the study. A dose lowering technique was utilized adhering to the principles of ALARA. MIP reconstructed images were created and reviewed. CONTRAST: Patient received 117 ML OPTIRAY 320 of IV contrast COMPARISON: None. FINDINGS: VASCULATURE: Right common carotid artery: Unremarkable. No occlusion or significant stenosis. No dissection. Right internal carotid artery: Unremarkable. Extracranial segment is patent with no occlusion or significant stenosis. No dissection. Right external carotid artery: Unremarkable. No occlusion. Right vertebral artery: Unremarkable. No occlusion or significant stenosis. No dissection. Left common carotid artery: Unremarkable. No occlusion or significant stenosis. No dissection. Left internal carotid artery: Mild calcified plaque of the left carotid bulb. Extracranial segment is patent with no occlusion or significant stenosis. No dissection. Left external carotid artery: Unremarkable. No occlusion. Left vertebral artery: Unremarkable. No occlusion or significant stenosis. No dissection. NECK: Bones/joints: Unremarkable. No acute fracture. Soft tissues: Unremarkable. Lung apices: Clear. CAROTID STENOSIS REFERENCE USING NASCET CRITERIA: % ICA stenosis = (1 - narrowest ICA diameter/diameter of distal cervical ICA) x 100. Mild - <50% stenosis. Moderate - 50-69% stenosis. Severe - 70-94% stenosis. Near occlusion - 95-99% stenosis. Occluded - 100% stenosis. IMPRESSION: 1. No hemodynamically significant carotid stenosis. 2. Bilateral vertebral arteries are patent along their cervical course without evidence of occlusion or dissection. Electronically signed by: Marty Walsh M.D. 06/06/23 23:[address] [facility] Narrative Patient was seen and evaluated as above in room B02. Review was performed of nursing notes and vital signs. I did review pertinent previous visits and patient history. After obtaining a thorough history and physical examination the above work up was performed. Patient presents to us today for evaluation of left-sided neck and head pain. No known trauma or injury. He has no deficits on examination. Options of care were discussed with the patient. IV access was established. Labs were drawn. There is mild leukocytosis at 10.93. No anemia. Coags normal. No emergent metabolic disturbance. Troponin within normal range. EKG was obtained to be thorough noting location of discomfort and this revealed normal sinus rhythm at a rate of 89 bpm. QTc 425. QRS 88. No ST elevation. CT angiography of the head and neck were obtained. These were interpreted by radiologist as essentially negative for any emergent process. Benefit versus risk of analgesics discussed with the patient. At this time through shared decision making we will proceed as it is felt that the benefit outweighs risk. Patient did receive multiple analgesics while here in the ED and even despite this he continued with pain. I do suspect likely musculoskeletal etiology. I do not suspect infection. I do not suspect neurovascular compromise noting his exam as well as imaging as above. I do not suspect cord etiology. In discussing options with the patient we elected to proceed with inpatient management. Case discussed with the hospitalist service. Please refer to further documentation regarding his stay. While in the department, I personally reevaluated the patient several times and each time the patient was found to be resting comfortably. The patient was educated upon management, educated upon todays findings/results, educated upon importance of follow up from today's visit, educated upon symptoms in which to return, had questions answered prior to discharge, verbalized understanding, and was discharged home in good condition. Case was discussed with the attending physician. GCS: 15 In the evaluation and treatment of this patient the following differential diagnoses were entertained: Dissection, CVA, subarachnoid hemorrhage, acute intracranial hemorrhage, skull fracture, muscle strain, [place], among others. Impression & Plan Neck pain on left side, Left-sided headache Discharge Plan Visit Data Chief Complaint: Head Pain Stated Complaint: HEAD PAIN, CANNOT MOVE HEAD TO LEFT ED Provider: Marine Goldsmith ED Midlevel Provider: Jass Wesley Discharge Problem: Neck pain on left side, Left-sided headache Patient Disposition: Admitted As Inpatient Condition: Good Discharge Instructions Interventions: ED Discharge Assessment Last Done: 06/07/23 05:24
[2023-06-06] MEDS ORDERED: ONDANSETRON INJ 2 MG/ML 2 ML VIAL IV STA (21:57)
[2023-06-06 22:16] LABS: Basophils # (auto) 0.09 K/uL (0.00-0.20); Basophils % (auto) 0.8 %; Eosinophils # (auto) 0.17 K/uL (0.00-0.50); Eosinophils % (auto) 1.6 %; Hematocrit (blood only) 47.9 % (42.0-52.0); Hemoglobin 15.5 g/dl (14.0-18.0); Immature Granulocytes # (auto) 0.07 K/uL (0.01-0.20); Immature Granulocytes % (auto) 0.6 %; Lymphocytes # (auto) 2.99 K/uL (1.20-3.40); Lymphocytes % (auto) 27.4 %; Mean Corpuscular Hemoglobin 28.7 pg (25.0-34.0); Mean Corpuscular Hgb Conc 32.4 g/dL (32.0-36.0); Mean Corpuscular Volume 88.5 fL (80.0-100.0); Mean Platelet Volume 10.4 fL (9.4-12.4); Monocytes # (auto) 1.21 K/uL (0.11-0.59); Monocytes % (auto) 11.1 %; Neutrophils % (auto) 58.5 %; Platelet Count 292 K/uL (130-400); RDW Coefficient of Variation 13.8 % (11.5-14.5); RDW Standard Deviation 44.5 fL (36.4-46.3); Red Blood Count 5.41 M/uL (4.70-6.10); White Blood Count 10.93 K/ul (4.8-10.8)
[2023-06-06 22:34] LABS: Albumin Globulin Ratio 1.1 (0.9-2); BUN Creatinine Ratio 13.2 (10-20); Bilirubin,Total 0.3 mg/dl (0.2-1.0); Creatinine Clr Calc Pharmacy 67.3 ml/min; Est GFR (African American) 77.8 ml/min; Est GFR (Non-African American) 67.1 ml/min; Globulin 3.5 gm/dl (2.5-4.0); Magnesium 1.7 mg/dl (1.7-2.4); Potassium 4.1 mmol/L (3.5-5.1); Total Protein 7.5 gm/dl (6.0-8.3)
--- NOTE | 2023-06-06 22:36 | Emergency Department Note ---
ED Visit Note I was consulted by the Advanced Practice Provider, Jass Wesley PA-C. I saw the patient personally and performed a substantive portion of the visit. This includes aspects of the HPI, MDM, diagnostic interpretations, and disposition/plan. Patient is a 63-year-old male presenting with headache and left neck pain. Patient reports that he woke up yesterday morning with pain in the left occipital region of his head and down his left neck. He states the pain has progressively worsened over the last 36 hours. He states he took Tylenol with little relief in symptoms. Denies any fevers. He denies any recent head injury or chiropractic manipulation of his neck. Denies any numbness or tingling or weakness in his upper extremities. Reports it hurts to turn his neck to the left. He denies any difficulties breathing or swallowing. Denies any chest pain or shortness of breath. Laboratory workup showed slight leukocytosis (WBC 10.93); stable electrolytes. CTA head/neck negative for acute pathology. Patient was initially given 50 mcg of IV fentanyl and 4 mg of IV morphine. However, on reassessment he still complaining of left posterior head and neck pain. He was given 25 mg IV Benadryl and 5 mg of IV Compazine and on reassessment still complaining of pain. Further headache management was utilized using 30 mg of IV Toradol, 10 mg IV dexamethasone, lidocaine patch and 2 mg of IV Valium. Unclear etiology for the patient's headache and posterior neck pain at this time. Symptoms are likely more musculoskeletal in nature. Considered subarachnoid hemorrhage, but with negative CTAs, do not feel LP is required at this time. Will admit the patient for further pain management and further workup. .
[2023-06-06 22:40] LABS: Troponin I High Sensitivity 3.1 pg/ml (0-20)
[2023-06-06 22:46] LABS: INR 0.9 (0.9-1.1); Partial Thromboplastin Ratio 0.9; Partial Thromboplastin Time 26 Seconds (21-31); Prothrombin Time 10.3 Seconds (9.0-12.0)
[2023-06-06] MEDS ORDERED: OPTIRAY 320 125ml IV ONE (23:04)
[2023-06-06] MEDS ORDERED: PROCHLORPERAZINE 1 ML IV ONE (23:05)
[2023-06-06] MEDS ORDERED: diphenhydrAMINE 50 MG/ML VIAL IV STA (23:05)
--- NOTE | 2023-06-06 23:36 | CT Scan Report ---
Exam(s): CTA NECK With Contrast IV Amt: 117 ML OPTIRAY 320 EXAM: CT Angiography Neck With Intravenous Contrast CLINICAL HISTORY: Reason for exam: L sided Neck and head pain. TECHNIQUE: Routine carotid CT angiography protocol was performed with intravenous contrast. NASCET criteria using the distal ICAs for comparison were used for evaluation of stenoses. CTDI is 36.67 mGy and DLP is 1166.58 mGy-cm. Automated exposure control was utilized for the study. A dose lowering technique was utilized adhering to the principles of ALARA. MIP reconstructed images were created and reviewed. CONTRAST: Patient received 117 ML OPTIRAY 320 of IV contrast COMPARISON: None. FINDINGS: VASCULATURE: Right common carotid artery: Unremarkable. No occlusion or significant stenosis. No dissection. Right internal carotid artery: Unremarkable. Extracranial segment is patent with no occlusion or significant stenosis. No dissection. Right external carotid artery: Unremarkable. No occlusion. Right vertebral artery: Unremarkable. No occlusion or significant stenosis. No dissection. Left common carotid artery: Unremarkable. No occlusion or significant stenosis. No dissection. Left internal carotid artery: Mild calcified plaque of the left carotid bulb. Extracranial segment is patent with no occlusion or significant stenosis. No dissection. Left external carotid artery: Unremarkable. No occlusion. Left vertebral artery: Unremarkable. No occlusion or significant stenosis. No dissection. NECK: Bones/joints: Unremarkable. No acute fracture. Soft tissues: Unremarkable. Lung apices: Clear. CAROTID STENOSIS REFERENCE USING NASCET CRITERIA: % ICA stenosis = (1 - narrowest ICA diameter/diameter of distal cervical ICA) x 100. Mild - <50% stenosis. Moderate - 50-69% stenosis. Severe - 70-94% stenosis. Near occlusion - 95-99% stenosis. Occluded - 100% stenosis. IMPRESSION: 1. No hemodynamically significant carotid stenosis. 2. Bilateral vertebral arteries are patent along their cervical course without evidence of occlusion or dissection. Electronically signed by: Marty Walsh M.D. 06/06/23 23:35 PM
--- NOTE | 2023-06-06 23:40 | CT Scan Report ---
Exam(s): CTA HEAD W/WO Contrast IV Amt: 117 ML OPTIRA 320 EXAM: CT Angiography Head Without and With Intravenous Contrast CLINICAL HISTORY: Reason for exam: L sided Neck and head pain. TECHNIQUE: Axial computed tomographic angiography images of the head without and with intravenous contrast. CTDI is 36.67 mGy and DLP is 1166.58 mGy-cm. Automated exposure control was utilized for the study. A dose lowering technique was utilized adhering to the principles of ALARA. MIP reconstructed images were created and reviewed. CONTRAST: Patient received 117 ML OPTIRA 320 of IV contrast COMPARISON: No relevant prior studies available. FINDINGS: VASCULATURE: Right internal carotid artery: No acute findings. Intracranial segment is patent with no significant stenosis. No aneurysm. Right anterior cerebral artery: Unremarkable. No occlusion or significant stenosis. No aneurysm. Right middle cerebral artery: Unremarkable. No occlusion or significant stenosis. No aneurysm. Right posterior cerebral artery: Unremarkable. No occlusion or significant stenosis. No aneurysm. Right vertebral artery: Unremarkable as visualized. Left internal carotid artery: Mild calcified plaque of the cavernous portion of the distal intracranial left internal carotid artery. Intracranial segment is patent with no significant stenosis. No aneurysm. Left anterior cerebral artery: Unremarkable. No occlusion or significant stenosis. No aneurysm. Left middle cerebral artery: Unremarkable. No occlusion or significant stenosis. No aneurysm. Left posterior cerebral artery: Unremarkable. No occlusion or significant stenosis. No aneurysm. Left vertebral artery: Unremarkable as visualized. Basilar artery: Unremarkable. No occlusion or significant stenosis. No aneurysm. HEAD: Brain: No acute findings. No hemorrhage. No edema. Normal enhancement. Ventricles: Unremarkable. No ventriculomegaly. Bones/joints: No acute fracture. Soft tissues: Unremarkable. Sinuses: Unremarkable as visualized. No acute sinusitis. Mastoid air cells: Unremarkable as visualized. No mastoid effusion. IMPRESSION: 1. No large vessel intracranial occlusion. 2. No intracranial aneurysm. Electronically signed by: Marty Walsh M.D. 06/06/23 23:39 PM
[2023-06-06] MEDS ORDERED: LIDOCAINE 5% 1 PATCH TD STA (23:47)
[2023-06-06] MEDS ORDERED: ACETAMINOPHEN 500 MG TAB PO STA (23:47)
[2023-06-06] MEDS ORDERED: KETOROLAC 30 MG/ML VIAL IV STA (23:47)
[2023-06-06] MEDS ORDERED: dexAMETHasone**PF** 10 MG/ML VIAL IV ONE (23:47)
[2023-06-06] MEDS ORDERED: diazePAM 5 MG/ML 10ML VIAL IV STA (23:47)
--- NOTE | 2023-06-07 05:18 | History & Physical Report ---
Date of Service June 07, 2023 Assessment & Plan (1) Neck pain: Plan: 63-year-old male with past med history significant for hyperprolactinemia, hyperlipidemia, prediabetes, seasonal allergies, moderate asthma, obstructive sleep apnea noncompliant with CPAP, hypertension, GERD, restless leg syndrome, atopic dermatitis, migraine, benign positional vertigo, depression, panic disorder, general anxiety disorder, presents with severe neck pain and head pain. Neck pain Severe Also having headache Not able to move his neck to the left side Imaging studies CTA head and neck unremarkable No fevers No injury Musculoskeletal? Pain control Will consult pain management History of asthma Continue home inhalers Obstructive sleep apnea Patient not using CPAP Depression Panic disorder Generalized anxiety disorder On Lexapro Hypertension on losartan GERD Omeprazole DVT prophylaxis SCDs for now Disposition Observation medical floor Full code History of Present Illness Chief Complaint: Fever neck pain Primary Care Provider: Bebo Landeros DO 63-year-old male with past med history significant for hyperprolactinemia, hyperlipidemia, prediabetes, seasonal allergies, moderate asthma, obstructive sleep apnea noncompliant with CPAP, hypertension, GERD, restless leg syndrome, atopic dermatitis, migraine, benign positional vertigo, depression, panic disorder, general anxiety disorder, presents with severe neck pain and head pain. Patient could not turn his head to the left side because of severe neck pain. Vision is okay. Also severe headache. No cough. No fever. No runny nose. No chest pain or shortness of breath. No nausea. No abdominal abdominal pain. Normal bowel and bladder movements. He has chronic weakness in the left approximately because of the injury. Rest of the extremities there is no weakness. No loss of sensation. Past medical history. As mentioned above Past surgical history. Colonoscopy. Cystoscopy. EGD. Ureteral stent placement. Left elbow 4 surgeries with rods and metal implanted. Inguinal hernia repair. Left shoulder arthroscopy. Social history. . No smoking. No alcohol. No drug use. Family history. Mother had asthma. Dementia. Diabetes. Heart disorder. Hypertension. Father had colon cancer in his 80s. Sister has diabetes. Son has asthma Allergies Allergy/AdvReac Type Severity Reaction Status Date / Time sumatriptan Allergy Mild RASH Verified 05/16/21 18:08 codeine AdvReac Mild SICK IN Verified 05/16/21 18:08 STOMACH Home Medications Medication Instructions Recorded Confirmed Type albuterol sulfate 2.5 mg/3 mL 2.5 mg continuous nebulization Q4H 06/07/23 06/07/23 History (0.083 %) solution for nebulization PRN Shortness Of Breath Or Wheezing albuterol sulfate 90 mcg/actuation 2 puff inhalation Q4H PRN 06/07/23 06/07/23 History aerosol inhaler Shortness Of Breath Or Wheezing atorvastatin 10 mg tablet 10 mg PO DAILY 06/07/23 06/07/23 History diclofenac sodium 1 % topical gel 2 g topical QID 06/07/23 06/07/23 History docusate sodium 100 mg capsule 100 mg PO BID 06/07/23 06/07/23 History dupilumab 300 mg/2 mL subcutaneous 300 mg subcut USEASDIRECTD 06/07/23 06/07/23 History pen injector (Dupixent) escitalopram oxalate 5 mg tablet 5 mg PO DAILY 06/07/23 06/07/23 History fluticasone fur. 200 mcg-umeclid 1 inh inhalation DAILY 06/07/23 06/07/23 History 62.5 mcg-vilant 25 mcg inhalat.powder (Trelegy Ellipta) levocetirizine 5 mg tablet 5 mg PO HS 06/07/23 06/07/23 History losartan 25 mg tablet 25 mg PO DAILY 06/07/23 06/07/23 History meclizine 25 mg tablet 25 mg PO TID vertigo 06/07/23 06/07/23 History meloxicam 15 mg tablet 15 mg PO DAILY 06/07/23 06/07/23 History montelukast 10 mg tablet 10 mg PO HS 06/07/23 06/07/23 History omeprazole 40 mg capsule,delayed 40 mg PO DAILY 06/07/23 06/07/23 History release Past Med/Surg History Medical History (Updated 06/07/23 @ 08:04 by Pee Dueñas PA-C) Myofascial pain Cervicogenic headache HTN (hypertension) Asthma, moderate persistent Erectile dysfunction Hyperprolactinemia Kidney stones Migraine Hyperlipidemia Surgical History History of open reduction and internal fixation (ORIF) procedure left shoulder/elbow---hardware in place History of repair of right rotator cuff History of cystoscopy Hx of left inguinal hernia repair History of colonoscopy History of wisdom tooth extraction Family History Father Family hx of colon cancer Other No family history of adverse response to anesthesia Social History Smoking Status: Never smoker Second Hand Exposure: No; Do You Dip or Chew Tobacco: No; Hx Alcohol Use: No Hx Substance Use: No Preferred Language: Czech Communication Ability: Effective 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 Head- atraumatic Eyes- PERRL. ENT- oropharynx clear Neck- painful movements. Lungs- clear to auscultation no wheezing or crackles. Heart- regular rhythm; no murmur, no gallop. Abdomen- normal bowel sounds, soft, nontender, no distension Extremities- no pretibial edema, no erythema Neuro- alert, oriented x 3; PERRL no facial palsy; no dysarthria; Chronic left upper extremity weakness.power 5/5 in rest of extremities. sensations intact Skin- warm & dry Results & Data Results & Data Vital Signs (Past 12 Hours) Vital Signs Temp Pulse Pulse Resp BP BP Pulse Ox 06/07/23 05:00 87 16 144/91 H 94 06/07/23 04:23 91 H 06/07/23 04:00 84 16 141/98 H 94 06/07/23 02:50 145/100 H 96 06/07/23 02:49 98 06/07/23 02:40 95 06/07/23 02:30 93 06/07/23 02:20 96 06/07/23 02:10 96 06/07/23 02:00 95 06/07/23 01:50 97 06/07/23 01:40 97 06/07/23 01:30 144/74 H 96 06/07/23 01:20 97 06/07/23 01:10 99 06/07/23 01:00 97 06/07/23 00:50 96 06/07/23 00:40 97 06/07/23 00:30 98 06/07/23 00:20 95 06/07/23 00:10 96 06/07/23 00:00 96 06/06/23 23:50 96 06/06/23 23:40 95 06/06/23 23:31 90 22 134/90 98 06/06/23 23:30 95 06/06/23 23:24 134/92 97 06/06/23 22:50 98 H 13 97 06/06/23 22:40 101 H 19 95 06/06/23 22:30 94 H 14 96 06/06/23 22:20 90 18 96 06/06/23 22:10 100 H 25 H 94 06/06/23 22:08 104 H 149/110 H 06/06/23 22:08 95 06/06/23 22:07 103 H 22 149/110 H 96 06/06/23 22:00 98 06/06/23 21:50 107 H 20 06/06/23 21:48 96 H 26 H 195/125 H 98 06/06/23 21:44 97 H 25 H 99 06/06/23 21:44 95 H 06/06/23 21:32 36.6 C 96 H 18 159/107 H 100 O2 Del Method 06/07/23 05:00 Room Air 06/07/23 04:23 06/07/23 04:00 Room Air 06/07/23 02:50 06/07/23 02:49 06/07/23 02:40 06/07/23 02:30 06/07/23 02:20 06/07/23 02:10 06/07/23 02:00 06/07/23 01:50 06/07/23 01:40 06/07/23 01:30 06/07/23 01:20 06/07/23 01:10 06/07/23 01:00 06/07/23 00:50 06/07/23 00:40 06/07/23 00:30 06/07/23 00:20 06/07/23 00:10 06/07/23 00:00 06/06/23 23:50 06/06/23 23:40 06/06/23 23:31 Room Air 06/06/23 23:30 06/06/23 23:24 06/06/23 22:50 06/06/23 22:40 06/06/23 22:30 06/06/23 22:20 06/06/23 22:10 06/06/23 22:08 06/06/23 22:08 Room Air 06/06/23 22:07 06/06/23 22:00 06/06/23 21:50 06/06/23 21:48 Room Air 06/06/23 21:44 06/06/23 21:44 06/06/23 21:32 Room Air Diagnostic Findings Laboratory Results WBC 10.93 K/ul (4.8-10.8) H 06/06/23 22:00 RBC 5.41 M/uL (4.70-6.10) 06/06/23 22:00 Hgb 15.5 g/dl (14.0-18.0) 06/06/23 22:00 Hct 47.9 % (42.0-52.0) 06/06/23 22:00 MCV 88.5 fL (80.0-100.0) 06/06/23 22:00 MCH 28.7 pg (25.0-34.0) 06/06/23 22:00 MCHC 32.4 g/dL (32.0-36.0) 06/06/23 22:00 RDW Std Deviation 44.5 fL (36.4-46.3) 06/06/23 22:00 RDW Coeff of Tino 13.8 % (11.5-14.5) 06/06/23 22:00 Plt Count 292 K/uL (130-400) 06/06/23 22:00 MPV 10.4 fL (9.4-12.4) 06/06/23 22:00 Immature Gran % (Auto) 0.6 % 06/06/23 22:00 Neut % (Auto) 58.5 % 06/06/23 22:00 Lymph % (Auto) 27.4 % 06/06/23 22:00 [place] % (Auto) 11.1 % 06/06/23 22:00 Eos % (Auto) 1.6 % 06/06/23 22:00 Baso % (Auto) 0.8 % 06/06/23 22:00 Neut # (Auto) 6.40 K/uL (1.40-6.50) 06/06/23 22:00 Lymph # (Auto) 2.99 K/uL (1.20-3.40) 06/06/23 22:00 [place] # (Auto) 1.21 K/uL (0.11-0.59) H 06/06/23 22:00 Eos # (Auto) 0.17 K/uL (0.00-0.50) 06/06/23 22:00 Baso # (Auto) 0.09 K/uL (0.00-0.20) 06/06/23 22:00 Immature Gran # (Auto) 0.07 K/uL (0.01-0.20) 06/06/23 22:00 PT 10.3 Seconds (9.0-12.0) 06/06/23 22:00 INR 0.9 (0.9-1.1) 06/06/23 22:00 APTT 26 Seconds (21-31) 06/06/23 22:00 PTT Ratio 0.9 06/06/23 22:00 Sodium 139 mmol/L (136-145) 06/06/23 22:00 Potassium 4.1 mmol/L (3.5-5.1) 06/06/23 22:00 Chloride 104 mmol/L (98-107) 06/06/23 22:00 Carbon Dioxide 29 mmol/L (21-32) 06/06/23 22:00 Anion Gap 6 (3-11) 06/06/23 22:00 BUN 15 mg/dl (6-23) 06/06/23 22:00 Creatinine 1.14 mg/dl (0.6-1.4) 06/06/23 22:00 Est Cr Clr Drug Dosing 67.3 ml/min 06/06/23 22:00 Est GFR ( Amer) 77.8 ml/min 06/06/23 22:00 Est GFR (Non-Af Amer) 67.1 ml/min 06/06/23 22:00 BUN/Creatinine Ratio 13.2 (10-20) 06/06/23 22:00 Glucose 79 mg/dl (70-99(Fasting)) 06/06/23 22:00 Calcium 9.0 mg/dl (8.6-10.3) 06/06/23 22:00 Magnesium 1.7 mg/dl (1.7-2.4) 06/06/23 22:00 Total Bilirubin 0.3 mg/dl (0.2-1.0) 06/06/23 22:00 AST 15 U/L (13-39) 06/06/23 22:00 ALT 23 U/L (7-52) 06/06/23 22:00 Alkaline Phosphatase 68 U/L (34-104) 06/06/23 22:00 Troponin I High Sens 3.1 pg/ml (0-20) 06/06/23 22:00 Total Protein 7.5 gm/dl (6.0-8.3) 06/06/23 22:00 Albumin 4.0 gm/dl (3.4-5.0) 06/06/23 22:00 Globulin 3.5 gm/dl (2.5-4.0) 06/06/23 22:00 Albumin/Globulin Ratio 1.1 (0.9-2) 06/06/23 22:00 Impressions Head CTA 06/06/23 21:49 Exam(s): CTA HEAD W/WO Contrast IV Amt: 117 ML OPTIRA 320 EXAM: CT Angiography Head Without and With Intravenous Contrast CLINICAL HISTORY: Reason for exam: L sided Neck and head pain. TECHNIQUE: Axial computed tomographic angiography images of the head without and with intravenous contrast. CTDI is 36.67 mGy and DLP is 1166.58 mGy-cm. Automated exposure control was utilized for the study. A dose lowering technique was utilized adhering to the principles of ALARA. MIP reconstructed images were created and reviewed. CONTRAST: Patient received 117 ML OPTIRA 320 of IV contrast COMPARISON: No relevant prior studies available. FINDINGS: VASCULATURE: Right internal carotid artery: No acute findings. Intracranial segment is patent with no significant stenosis. No aneurysm. Right anterior cerebral artery: Unremarkable. No occlusion or significant stenosis. No aneurysm. Right middle cerebral artery: Unremarkable. No occlusion or significant stenosis. No aneurysm. Right posterior cerebral artery: Unremarkable. No occlusion or significant stenosis. No aneurysm. Right vertebral artery: Unremarkable as visualized. Left internal carotid artery: Mild calcified plaque of the cavernous portion of the distal intracranial left internal carotid artery. Intracranial segment is patent with no significant stenosis. No aneurysm. Left anterior cerebral artery: Unremarkable. No occlusion or significant stenosis. No aneurysm. Left middle cerebral artery: Unremarkable. No occlusion or significant stenosis. No aneurysm. Left posterior cerebral artery: Unremarkable. No occlusion or significant stenosis. No aneurysm. Left vertebral artery: Unremarkable as visualized. Basilar artery: Unremarkable. No occlusion or significant stenosis. No aneurysm. HEAD: Brain: No acute findings. No hemorrhage. No edema. Normal enhancement. Ventricles: Unremarkable. No ventriculomegaly. Bones/joints: No acute fracture. Soft tissues: Unremarkable. Sinuses: Unremarkable as visualized. No acute sinusitis. Mastoid air cells: Unremarkable as visualized. No mastoid effusion. IMPRESSION: 1. No large vessel intracranial occlusion. 2. No intracranial aneurysm. Electronically signed by: Marty Walsh M.D. 06/06/23 23:39 PM Neck CTA 06/06/23 21:49 Exam(s): CTA NECK With Contrast IV Amt: 117 ML OPTIRAY 320 EXAM: CT Angiography Neck With Intravenous Contrast CLINICAL HISTORY: Reason for exam: L sided Neck and head pain. TECHNIQUE: Routine carotid CT angiography protocol was performed with intravenous contrast. NASCET criteria using the distal ICAs for comparison were used for evaluation of stenoses. CTDI is 36.67 mGy and DLP is 1166.58 mGy-cm. Automated exposure control was utilized for the study. A dose lowering technique was utilized adhering to the principles of ALARA. MIP reconstructed images were created and reviewed. CONTRAST: Patient received 117 ML OPTIRAY 320 of IV contrast COMPARISON: None. FINDINGS: VASCULATURE: Right common carotid artery: Unremarkable. No occlusion or significant stenosis. No dissection. Right internal carotid artery: Unremarkable. Extracranial segment is patent with no occlusion or significant stenosis. No dissection. Right external carotid artery: Unremarkable. No occlusion. Right vertebral artery: Unremarkable. No occlusion or significant stenosis. No dissection. Left common carotid artery: Unremarkable. No occlusion or significant stenosis. No dissection. Left internal carotid artery: Mild calcified plaque of the left carotid bulb. Extracranial segment is patent with no occlusion or significant stenosis. No dissection. Left external carotid artery: Unremarkable. No occlusion. Left vertebral artery: Unremarkable. No occlusion or significant stenosis. No dissection. NECK: Bones/joints: Unremarkable. No acute fracture. Soft tissues: Unremarkable. Lung apices: Clear. CAROTID STENOSIS REFERENCE USING NASCET CRITERIA: % ICA stenosis = (1 - narrowest ICA diameter/diameter of distal cervical ICA) x 100. Mild - <50% stenosis. Moderate - 50-69% stenosis. Severe - 70-94% stenosis. Near occlusion - 95-99% stenosis. Occluded - 100% stenosis. IMPRESSION: 1. No hemodynamically significant carotid stenosis. 2. Bilateral vertebral arteries are patent along their cervical course without evidence of occlusion or dissection. Electronically signed by: Marty Walsh M.D. 06/06/23 23:35 PM ECG Additional Comments: ECG. Normal sinus rhythm rate of 89. No acute ST changes seen. Code Status & VTE Plan VTE Prophylaxis Plan VTE Prophylaxis will be ordered: Yes
[2023-06-07] MEDS ORDERED: POLYETHYLENE (MIRALAX) 17 GM PACK PO PRN (05:24)
[2023-06-07] MEDS ORDERED: ACETAMINOPHEN 325 MG TAB PO PRN (05:24)
[2023-06-07] MEDS ORDERED: HYDROmorphone INJ 0.5 MG/0.5 ML SYR IV PRN (05:24)
[2023-06-07] MEDS ORDERED: ALBUTEROL HFA 8 GM INHALER INH PRN (05:24)
[2023-06-07] MEDS ORDERED: ONDANSETRON INJ 2 MG/ML 2 ML VIAL IV PRN (05:24)
--- NOTE | 2023-06-07 07:23 | XRay Report ---
XR chest 1V portable CLINICAL HISTORY: Left sided neck pain. COMPARISON STUDY: Chest radiograph and chest CT May 20, 2021. FINDINGS: Old left humeral deformity with associated internal fixation hardware is partially imaged. There is no pneumothorax or pleural effusion. Low lung volumes are present. There is no consolidation to suggest pneumonia. Stable cardiomegaly without evidence for pulmonary edema. IMPRESSION: No acute cardiopulmonary findings. Cardiomegaly. ACT 112: Negative or not required by law. Electronically signed by: Chandra House M.D. 06/07/2023 7:22 AM
--- NOTE | 2023-06-07 08:07 | Pain Management Consultation ---
Date of Consultation June 07, 2023 Assessment & Plan (1) Neck pain on left side: (2) Cervicogenic headache: (3) Myofascial pain: Plan 1. Patient with acute left-sided neck pain extending to the shoulder and occipital scalp with hemicranial headache which appears to be likely a myofascial etiology potentially related to chronic overuse syndrome from left- sided upper extremity weakness from his prior history of multiple elbow surgeries with ORIF/elbow replacement. Patient is reporting significant reduction in pain without limitation in range of motion upon my examination. Would recommend Medrol Dosepak/prednisone taper and cyclobenzaprine 5 mg 3 times daily as needed for muscular spasm. Consider outpatient follow-up with PT. There appears to be no need for further diagnostic imaging at this time and there is no current role for interventional treatment. His potential candidacy for myoneural trigger point injections was discussed should he have persistent/progressive complaints of pain in the future. Pain service will sign off on patient at this time. Thank you for allowing us to participate in the care of Mr. Pleitez. History of Present Illness Reason for Consultation: Left-sided neck pain and headache Requesting Physician: Michael Dsouza MD Attending Physician: Michael Dsouza MD History of Present Illness Mr. Pleitez is a 63-year-old male who presented emergently yesterday for acute left-sided neck pain and left hemicranial headache. Patient has past medical history significant for hyperprolactinemia, hyperlipidemia, prediabetes, seasonal allergies, asthma, obstructive sleep apnea noncompliant with CPAP, GERD, restless leg syndrome, atopic dermatitis, history of migraine, benign positional vertigo, depression, panic disorder and generalized anxiety disorder. The patient presented emergently due to acute onset of left-sided neck pain and headache without known injury. 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 He also has history of left elbow replacement multiple times with chronic left-sided weakness of the upper extremity. He is right-hand dominant. He describes the pain as sharp and spasming with limited range of motion of the head and neck. He was reporting increased pain with head and neck movement. He denied any light sensitivity, sensitivity, nausea or vomiting associate with the pain. He denied any left lower extremity radicular pattern pain to the complaint. He did have some mild right-sided neck pain. His current pain is mild at a 4/10. His pain was most severe at an 8-9/10 yesterday. He is feeling much better and is eager for discharge. Patient has been treated acutely with Toradol, Decadron, diazepam, Tylenol and Lidoderm patch. He denies outpatient treatment for head or neck pain. He denies any chronic recurrent headaches. He does not undergo chiropractic manipulation per his report. He is reporting improved ability to move his head and neck without any significant increase in discomfort. Plan of care discussed with Dr. Wilcox. Pain Assessment Full Body Front + Back: 2 1. Left occipital scalp, neck and mid trapezius locations Pain scale - at its best (0-10): 4 Pain scale - at its worst (0-10): 9 Allergies Allergy/AdvReac Type Severity Reaction Status Date / Time sumatriptan Allergy Mild RASH Verified 05/16/21 18:08 codeine AdvReac Mild SICK IN Verified 05/16/21 18:08 STOMACH Home Medications Medication Instructions Recorded Confirmed Type albuterol sulfate 2.5 mg/3 mL 2.5 mg continuous nebulization Q4H 06/07/23 06/07/23 History (0.083 %) solution for nebulization PRN Shortness Of Breath Or Wheezing albuterol sulfate 90 mcg/actuation 2 puff inhalation Q4H PRN 06/07/23 06/07/23 History aerosol inhaler Shortness Of Breath Or Wheezing atorvastatin 10 mg tablet 10 mg PO DAILY 06/07/23 06/07/23 History diclofenac sodium 1 % topical gel 2 g topical QID 06/07/23 06/07/23 History docusate sodium 100 mg capsule 100 mg PO BID 06/07/23 06/07/23 History dupilumab 300 mg/2 mL subcutaneous 300 mg subcut USEASDIRECTD 06/07/23 06/07/23 History pen injector (Dupixent) escitalopram oxalate 5 mg tablet 5 mg PO DAILY 06/07/23 06/07/23 History fluticasone fur. 200 mcg-umeclid 1 inh inhalation DAILY 06/07/23 06/07/23 History 62.5 mcg-vilant 25 mcg inhalat.powder (Trelegy Ellipta) levocetirizine 5 mg tablet 5 mg PO HS 06/07/23 06/07/23 History losartan 25 mg tablet 25 mg PO DAILY 06/07/23 06/07/23 History meclizine 25 mg tablet 25 mg PO TID vertigo 06/07/23 06/07/23 History meloxicam 15 mg tablet 15 mg PO DAILY 06/07/23 06/07/23 History montelukast 10 mg tablet 10 mg PO HS 06/07/23 06/07/23 History omeprazole 40 mg capsule,delayed 40 mg PO DAILY 06/07/23 06/07/23 History release Pain History Pain Intensity Pain scale - at its best (0-10): 4 Pain scale - at its worst (0-10): 9 Patient History Medical History (Updated 06/07/23 @ 08:04 by Pee Dueñas PA-C) Myofascial pain Cervicogenic headache HTN (hypertension) Asthma, moderate persistent Erectile dysfunction Hyperprolactinemia Kidney stones Migraine Hyperlipidemia Surgical History History of open reduction and internal fixation (ORIF) procedure left shoulder/elbow---hardware in place History of repair of right rotator cuff History of cystoscopy Hx of left inguinal hernia repair History of colonoscopy History of wisdom tooth extraction Family History Father Family hx of colon cancer Other No family history of adverse response to anesthesia Social History Smoking Status: Never smoker Second Hand Exposure: No; Do You Dip or Chew Tobacco: No; Hx Alcohol Use: No Hx Substance Use: No Preferred Language: Congolese Communication Ability: Effective 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 Speech and thought process appropriate. Mood and affect appropriate. Cognition intact. Head: Normocephalic and atraumatic. Patient is minimally tender over the left greater occipital nerve to direct outpatient and nontender over the lesser occipital nerve. Patient is nontender corresponding on the right. ENT: No evidence of nasal or oral mucosal lesions. Mucous membranes are moist. Eyes: Pupils equal round reactive to light. Neck: Supple without adenopathy and full range of motion. No limitation throughout range of motion. No focal midline or facet joint tenderness. Patient is minimally tender throughout the left cervical paravertebral musculature. Minimal spasm. He is moderately tender in the proximal and mid trapezius musculature on the left with spasm. Minimal evidence of myoneural trigger point. Strength testing of the head and neck was 5/5 with lateral rotation, ear to shoulder maneuvering and flexion/extension. No significant increased pain. Spurling's maneuver negative bilaterally. Upper extremities: Patient has multiple surgical incisions throughout the left elbow with atrophy of the left upper extremity. Strength testing is 4/5 in the left upper extremity and 5/5 on the right. Sensation was intact without focal deficit. Stan sign negative bilaterally. Chest: Nontender to palpation of the costosternal junction. Neurologic: Cranial nerves grossly intact. Ambulatory function not witnessed. Results (Pain Clinic) [phone] Scan Report Patient: DARWIN PLEITEZ Admit Date: 06/06/23 MR#: [id number] Address1: [address] [place] [address] Acct ID:[id number] Address2: Date: 1960 [facility] Zip: [place] [address] Age: 63 Location: ED Sex: M Room/Bed: Att Phy: Diagnosis: HEAD PAIN, CANNOT MOVE HEAD TO LEFT Jocelyn Phy: Bebo Landeros DO Service Date: 06/06/23 [facility] Phy: Interpreting Phy: Marty Walsh MDAdmit Phy: Ordering Phy: Jass Wesley PA-C cc: ~ Exam(s): CTA NECK With Contrast IV Amt: 117 ML OPTIRAY 320 EXAM: CT Angiography Neck With Intravenous Contrast CLINICAL HISTORY: Reason for exam: L sided Neck and head pain. TECHNIQUE: Routine carotid CT angiography protocol was performed with intravenous contrast. NASCET criteria using the distal ICAs for comparison were used for evaluation of stenoses. CTDI is 36.67 mGy and DLP is 1166.58 mGy-cm. Automated exposure control was utilized for the study. A dose lowering technique was utilized adhering to the principles of ALARA. MIP reconstructed images were created and reviewed. CONTRAST: Patient received 117 ML OPTIRAY 320 of IV contrast COMPARISON: None. FINDINGS: VASCULATURE: Right common carotid artery: Unremarkable. No occlusion or significant stenosis. No dissection. Right internal carotid artery: Unremarkable. Extracranial segment is patent with no occlusion or significant stenosis. No dissection. Right external carotid artery: Unremarkable. No occlusion. Right vertebral artery: Unremarkable. No occlusion or significant stenosis. No dissection. Left common carotid artery: Unremarkable. No occlusion or significant stenosis. No dissection. Left internal carotid artery: Mild calcified plaque of the left carotid bulb. Extracranial segment is patent with no occlusion or significant stenosis. No dissection. Left external carotid artery: Unremarkable. No occlusion. Left vertebral artery: Unremarkable. No occlusion or significant stenosis. No dissection. NECK: Bones/joints: Unremarkable. No acute fracture. Soft tissues: Unremarkable. Lung apices: Clear. CAROTID STENOSIS REFERENCE USING NASCET CRITERIA: % ICA stenosis = (1 - narrowest ICA diameter/diameter of distal cervical ICA) x 100. Mild - <50% stenosis. Moderate - 50-69% stenosis. Severe - 70-94% stenosis. Near occlusion - 95-99% stenosis. Occluded - 100% stenosis. IMPRESSION: 1. No hemodynamically significant carotid stenosis. 2. Bilateral vertebral arteries are patent along their cervical course without evidence of occlusion or dissection. Electronically signed by: Marty Walsh M.D. 06/06/23 23:35 PM Dictated: 06/06/232334 Transcribed: 06/06/232334 [facility] MICAH Francois [phone] CT Scan Report Patient: DARWIN PLEITEZ Admit Date: 06/06/23 MR#: [id number] Address1: [address] [place] [address] Acct ID:[id number] Address2: Date: 1960 [facility] [address] Age: 63 Location: ED Sex: M Room/Bed: Att Phy: Diagnosis: HEAD PAIN, CANNOT MOVE HEAD TO LEFT Jocelyn Phy: Bebo Landeros DO Service Date: 06/06/23 [facility] Phy: Interpreting Phy: Marty Walsh MDAdmit Phy: Ordering Phy: Jass Wesley PA-C cc: ~ Exam(s): CTA HEAD W/WO Contrast IV Amt: 117 ML OPTIRA 320 EXAM: CT Angiography Head Without and With Intravenous Contrast CLINICAL HISTORY: Reason for exam: L sided Neck and head pain. TECHNIQUE: Axial computed tomographic angiography images of the head without and with intravenous contrast. CTDI is 36.67 mGy and DLP is 1166.58 mGy-cm. Automated exposure control was utilized for the study. A dose lowering technique was utilized adhering to the principles of ALARA. MIP reconstructed images were created and reviewed. CONTRAST: Patient received 117 ML OPTIRA 320 of IV contrast COMPARISON: No relevant prior studies available. FINDINGS: VASCULATURE: Right internal carotid artery: No acute findings. Intracranial segment is patent with no significant stenosis. No aneurysm. Right anterior cerebral artery: Unremarkable. No occlusion or significant stenosis. No aneurysm. Right middle cerebral artery: Unremarkable. No occlusion or significant stenosis. No aneurysm. Right posterior cerebral artery: Unremarkable. No occlusion or significant stenosis. No aneurysm. Right vertebral artery: Unremarkable as visualized. Left internal carotid artery: Mild calcified plaque of the cavernous portion of the distal intracranial left internal carotid artery. Intracranial segment is patent with no significant stenosis. No aneurysm. Left anterior cerebral artery: Unremarkable. No occlusion or significant stenosis. No aneurysm. Left middle cerebral artery: Unremarkable. No occlusion or significant stenosis. No aneurysm. Left posterior cerebral artery: Unremarkable. No occlusion or significant stenosis. No aneurysm. Left vertebral artery: Unremarkable as visualized. Basilar artery: Unremarkable. No occlusion or significant stenosis. No aneurysm. HEAD: Brain: No acute findings. No hemorrhage. No edema. Normal enhancement. Ventricles: Unremarkable. No ventriculomegaly. Bones/joints: No acute fracture. Soft tissues: Unremarkable. Sinuses: Unremarkable as visualized. No acute sinusitis. Mastoid air cells: Unremarkable as visualized. No mastoid effusion. IMPRESSION: 1. No large vessel intracranial occlusion. 2. No intracranial aneurysm. Electronically signed by: Marty Walsh M.D. 06/06/23 23:39 PM Dictated: 06/06/232338 Transcribed: 06/06/232338
[2023-06-07] MEDS ORDERED: UMECLIDINIUM/VILANTEROL 62.5/25MCG 7 PUFFS/INHALER INH SCH (09:00)
[2023-06-07] MEDS ORDERED: ESCITALOPRAM OXALATE 10 MG TAB PO SCH (09:00)
[2023-06-07] MEDS ORDERED: PANTOprazole 40 MG TAB PO SCH (09:00)
[2023-06-07] MEDS ORDERED: NON-FORMULARY MEDICATION (Fluticasone-Umeclidin-Vilanter [Trelegy Ellipta] 200-62.5-25 mcg INH SCH (09:00)
[2023-06-07] MEDS ORDERED: FLUTICASONE FUROATE 200MCG 14 PUFFS/INHALER INH SCH (09:00)
[2023-06-07] MEDS ORDERED: ATORVASTATIN 10 MG TAB PO SCH (09:00)
[2023-06-07] MEDS ORDERED: LOSARTAN POTASSIUM 25 MG TAB PO SCH (09:00)
[2023-06-07] MEDS ORDERED: DICLOFENAC SOD 1% GEL 100 GM TUBE EXT SCH (09:00)
[2023-06-07] MEDS ORDERED: DOCUSATE SODIUM 100 MG CAP PO SCH (09:00)
--- NOTE | 2023-06-07 11:41 | Communication Note ---
Date of Service: June 07, 2023 63-year-old male came into ER with severe neck pain, headache and spasm. Apparent investigations including CTA of the head and neck remain unremarkable. He was seen by the pain management and was advised to have Medrol Dosepak and baclofen as needed. He has been feeling much better in the emergency room and wants to go home. He denies any neurological symptoms and he has been ambulating without any difficulty. He will be discharged home this afternoon. He has an appointment with his primary care physician within [address] Devonte Dsouza
--- NOTE | 2023-06-07 11:51 | Communication Note ---
Date of Service: June 07, 2023 His asthma remains stable and no medications were changed He was given prednisone for convenience instead of Medrol Dosepak. Dr Devonte Dsouza
--- NOTE | 2023-06-07 11:58 | Electrocardiogram Report ---
Test Reason : Blood Pressure : / mmHG Vent. Rate : 089 BPM Atrial Rate : 089 BPM P-R Int : 142 ms QRS Dur : 088 ms QT Int : 350 ms P-R-T Axes : 048 -16 045 degrees QTc Int : 425 ms Normal sinus rhythm Normal ECG When compared with ECG of 20-MAY-2021 17:28, T wave inversion no longer evident in Inferior leads Confirmed by Chucho Acosta ([id number]) on 06/07/2023 11:57:44 AM Referred By: Bebo Landeros Confirmed By:Anderson Acosta
[2023-06-07] MEDS ORDERED: CETIRIZINE HCL 10 MG TABLET PO SCH (21:00)
[2023-06-07] MEDS ORDERED: MONTELUKAST SODIUM 10 MG TABLET PO SCH (21:00)
--- NOTE | 2023-06-16 08:11 | Discharge Summary ---
Date of Service May Admission HPI Per Admitting Provider 63-year-old male with past med history significant for hyperprolactinemia, hyperlipidemia, prediabetes, seasonal allergies, moderate asthma, obstructive sleep apnea noncompliant with CPAP, hypertension, GERD, restless leg syndrome, atopic dermatitis, migraine, benign positional vertigo, depression, panic disorder, general anxiety disorder, presents with severe neck pain and head pain. Patient could not turn his head to the left side because of severe neck pain. Vision is okay. Also severe headache. No cough. No fever. No runny nose. No chest pain or shortness of breath. No nausea. No abdominal abdominal pain. Normal bowel and bladder movements. He has chronic weakness in the left approximately because of the injury. Rest of the extremities there is no weakness. No loss of sensation. Past medical history. As mentioned above Past surgical history. Colonoscopy. Cystoscopy. EGD. Ureteral stent placement. Left elbow 4 surgeries with rods and metal implanted. Inguinal hernia repair. Left shoulder arthroscopy. Social history. . No smoking. No alcohol. No drug use. Family history. Mother had asthma. Dementia. Diabetes. Heart disorder. Hypertension. Father had colon cancer in his 80s. Sister has diabetes. Son has asthma Admission Exam Per Admitting Provider Physical Exam: General- Not in distress. Head- atraumatic Eyes- PERRL. ENT- oropharynx clear Neck- painful movements. Lungs- clear to auscultation no wheezing or crackles. Heart- regular rhythm; no murmur, no gallop. Abdomen- normal bowel sounds, soft, nontender, no distension Extremities- no pretibial edema, no erythema Neuro- alert, oriented x 3; PERRL no facial palsy; no dysarthria; Chronic left upper extremity weakness.power 5/5 in rest of extremities. sensations intact Skin- warm & dry Principal Diagnosis Severe neck pain-myofascial pain syndrome Discharge Exam General- Not in distress. Head- atraumatic Eyes- PERRL. ENT- oropharynx clear Neck- painful movements. Lungs- clear to auscultation no wheezing or crackles. Heart- regular rhythm; no murmur, no gallop. Abdomen- normal bowel sounds, soft, nontender, no distension Extremities- no pretibial edema, no erythema Neuro- alert, oriented x 3; PERRL no facial palsy; no dysarthria; Chronic left upper extremity weakness.power 5/5 in rest of extremities. sensations intact Skin- warm & dry Discharge Data Allergies Allergy/AdvReac Type Severity Reaction Status Date / Time sumatriptan Allergy Mild RASH Verified 05/16/21 18:08 codeine AdvReac Mild SICK IN Verified 05/16/21 18:08 STOMACH Consultations 06/07/23 00:45 ED Decision to Admit Stat 06/07/23 08:00 Consult Pain Management Routine Ordered Studies 06/06/23 21:49 CT angio head wo/w Stat CT angio neck with con Stat Hospital Course (1) Neck pain: 63-year-old male with past med history significant for hyperprolactinemia, hyperlipidemia, prediabetes, seasonal allergies, moderate asthma, obstructive sleep apnea noncompliant with CPAP, hypertension, GERD, restless leg syndrome, atopic dermatitis, migraine, benign positional vertigo, depression, panic disorder, general anxiety disorder, presents with severe neck pain and head pain. Neck pain Severe Also having headache Not able to move his neck to the left side Imaging studies CTA head and neck unremarkable No fevers No injury Musculoskeletal? Pain control Will consult pain management History of asthma Continue home inhalers Obstructive sleep apnea Patient not using CPAP Depression Panic disorder Generalized anxiety disorder On Lexapro Hypertension on losartan GERD Omeprazole DVT prophylaxis SCDs for now Disposition Observation medical floor Full code Total Time Total Time Spent Total Time Spent (In Minutes): 20 minutes Discharge Plan Discharge Items Patient Disposition: Home - Self-Care Reason For Visit: SEVERE NECK PAIN Discharge Diagnosis: Severe neck pain-myofascial pain syndrome Condition on Discharge: Good Activity: Resume your previous activity Non-emergency contact: Primary Care Provider Call non-emergency contact if: you have any medication questions and your symptoms worsen Follow-up/Referrals: Bebo Landeros DO [Primary Care Provider] - (Please make an appointment with your PCP within 7 days) Diet: Heart Healthy Addtl Attending Provider Instructions: Please take precautions to avoid fall Take your medications as advised Please give appointment with your healthcare provider If the neck pain is not better you can make an appointment with pain therapist to have injection as per their recommendation Pending Studies at Discharge: No Stand-Alone Forms: [employer], Smoking Cessation Medications and DC Order Prescriptions: New prednisone 10 mg tablet 10 mg PO DIRECTED Qty: 20 0RF Rx Instructions: 4 p.o. daily for 2 days, 3 p.o. daily for 2 days, 2 p.o. daily for 2 days, 1 p.o. daily for 2 days baclofen 5 mg tablet 5 mg PO TID PRN (Reason: muscle spasm) Qty: 30 0RF Continued albuterol sulfate 2.5 mg /3 mL (0.083 %) solution for nebulization 2.5 mg continuous nebulization Q4H PRN (Reason: Shortness Of Breath Or Wheezing) atorvastatin 10 mg tablet 10 mg PO DAILY meloxicam 15 mg tablet 15 mg PO DAILY omeprazole 40 mg capsule,delayed release(DR/EC) 40 mg PO DAILY meclizine 25 mg tablet 25 mg PO TID losartan 25 mg tablet 25 mg PO DAILY docusate sodium 100 mg capsule 100 mg PO BID montelukast 10 mg tablet 10 mg PO HS albuterol sulfate 90 mcg/actuation HFA aerosol inhaler 2 puff INHALATION Q4H PRN (Reason: Shortness Of Breath Or Wheezing) escitalopram oxalate 5 mg tablet 5 mg PO DAILY levocetirizine 5 mg tablet 5 mg PO HS diclofenac sodium 1 % gel 2 g TOPICAL QID Dupixent Pen 300 mg/2 mL pen injector 300 mg SUBCUT USEASDIRECTD Rx Instructions: very 2 weeks Trelegy Ellipta 200-62.5-25 mcg blister with device 1 inh INHALATION DAILY Discharge Orders: Discharge Order (Routine); Ordered 06/07/23 Ordered By: Michael Dsouza Admission Data Admit Date/Time: 06/07/23 05:01 Attending Provider: Michael Dsouza Admit Provider: Jamin Thorne Primary Care Provider: Bebo Landeros Other Providers: Jamin Thorne; Stewart Wilcox Other Interventions: Discharge Summary Assessment (RN) Last Done: 06/07/23 11:58
== END 2023-06-07 11:58 | disposition home or self-care (01) ==
LOC: ED 21:30 → EDINP 21:30